=== PATIENT | female | born 1955 | race Caucasian/White ===

== ENCOUNTER 2016-07-06 11:13 | Outpatient (CLI) | payer MEDICARE ==
[~2016-07-06] VITALS: Ht 172.7 cm; Wt 81.8 kg
--- NOTE | ~2016-07-06 | HEMODYNAMI ---
PATIENT:TATYANA RAYMOND MEDICAL RECORD: [id number] : 55 LOCATION:[facility] ADMISSION DATE: 07/06/16 Generatedon:07/06/201613:35 Patient name: TATYANA RAYMOND Patient #: [id number] SSN: : 1955 Date of study: 07/06/2016 Page: Of Hemodynamic Procedure Report Patient Data Patient Demographics Procedure consent was obtained First Name: TATYANA Gender: Female Last Name: MANDI : 1955 Middle Initial: OREN Age: 60 year(s) Patient #: [id number] Race: Unknown Additional ID: [id number] Contact details [address]: [address] [place] [address] State: [place] City: [place] Zip code: [address] Past Medical History Allergies Allergen Reaction Date Comments Reported Iodine 07/06/2016 Penicillins 07/06/2016 Other allergy 07/06/2016 Levaquin, Amitryptyline Admission Admission Data Admission Date: 07/06/2016 Admission Time: 11:13 Weight (lbs.): 180 Weight (kg.): 81.65 Procedure Procedure Types Cath Procedure Diagnostic Procedure LHC LHC w/Coronaries w/Grafts Miscellaneous Procedures Moderate Sedation up to 15 minutes Procedure Description Procedure Date Procedure Date: 07/06/2016 Procedure Start Time: 13:16 Procedure End Time: 13:32 Procedure Staff Name Function Bossman Valenzuela RT Scrub Sampson Mathis MD Performing Physician Anny An RN Nurse Williams Gold RT Monitor Procedure Data Cath Procedure Fluoroscopy Diagnostic fluoroscopy Total fluoroscopy Time: 3.9 time: 3.9 min min Diagnostic fluoroscopy Total fluoroscopy dose: 789 dose: 789 mGy mGy Contrast Material Contrast Material Type Amount (ml) Isovue 300 138 Entry Location Entry Primary Successful Side Size Upsize Upsize Entry Closure Succes sful Closure Location (Fr) 1 (Fr) 2 (Fr) Remarks Device Remarks Femoral Right 5 Fr Exoseal artery Estimated blood loss: 5 ml Diagnostic catheters Device Type Used For End Catheter Placement Cordis 5Fr JL 4.0 Procedure Catheter (MP) Cordis 5Fr 3DRC Catheter Procedure (MP) Cordis 5Fr Pigtail Procedure Catheter (MP) Diagnostic Infinity 5Fr Procedure AR 2 MOD catheter Procedure Complications No complications Procedure Medications Medication Administration Route Dosage Oxygen NC 2 l/min Heparin Flush Bag added to field 2 bags (1000units/500ml NS) Lidocaine 2% added to field 20 Versed I.V. 1 mg Fentanyl I.V. 50 mcg Versed I.V. 1 mg Fentanyl I.V. 50 mcg Versed I.V. 1 mg Plavix P.O. 75 mg Versed I.V. 1 mg Hemodynamics Rest Heart Rate: 78 (bpm) Pressure Samples Time Site Value (mmHg) Purpose Heart Use Rate(bpm) 13:25 LV 141/-11,28 Snapshot 83 13:25 LV 140/-11,27 Snapshot 83 Gradients Valve Time Site Site Mean SEP/DFP Peak To Heart Use 1 2 (mmHg) (sec/min) Peak Rate (mmHg) (bpm) Aortic 13:26 LV AO 84 Snapshots Pre Cath Intra NCS Post Cath Vital Signs Time Heart Resp SPO2 NIBP (mmHg) Rhythm Pain Sedation Rate (ipm) (%) Status Level (bpm) 13:11:11 74 15 98 138/84(107) NSR 0 (11) 10(A) , No pain 13:15:23 79 15 100 143/86(118) NSR 0 (11) 10(A) , No pain 13:19:37 81 16 99 140/83(107) NSR 0 (11) 10(A) , No pain 13:23:53 80 17 99 134/78(100) NSR 0 (11) 10(A) , No pain 13:28:03 83 16 98 134/85(110) NSR 0 (11) 10(A) , No pain 13:32:13 81 16 99 135/88(113) NSR 0 (11) 10(A) , No pain Medications Time Medication Route Dose Verified Delivered Reason Notes Ef fectiveness by by 12:50:53 Plavix P.O. 75 mg Sampson Mccormick for [facility] An RN antiplatelet therapy 13:12:07 Oxygen NC 2 Sampson Perezca Per l/min [facility] An RN physician 13:12:15 Heparin Flush added 2 Sampson Sampson used for Bag to bags [place] Del procedure (1000units/500ml field MD LLANOS NS) 13:12:25 Lidocaine 2% added 20ml Sampson Sampson used for to vial Del [place] procedure field MD LLANOS 13:15:53 Versed I.V. 1 mg Sampson Anny for sedation [facility] An RN, MD 13:15:59 Fentanyl I.V. 50 Sampson Anny for sedation mcg [facility] An RN, MD 13:19:25 Versed I.V. 1 mg Sampson Anny for sedation [facility] An RN, MD 13:19:27 Fentanyl I.V. 50 Sampson Anny for sedation mcg [facility] An RN, MD 13:21:57 Versed I.V. 1 mg Sampson Anny for sedation [facility] An RN, MD 13:24:32 Versed I.V. 1 mg Sampson Anny for sedation [facility] An RN, MD Procedure Log Time Note 12:37:28 Procedure type changed to Cath procedure, Diagnostic procedure, LHC, LHC w/Coronaries w/Grafts, Miscellaneous Procedures, Moderate Sedation up to 15 minutes 12:38:08 Diagnostic Cath status Elective 12:38:11 Jose CORDOBA(R) sent for patient. Start room use. 12:38:12 Time tracking: Regular hours 12:38:16 Plan of Care:Hemodynamics will remain stable., Cardiac rhythm will remain stable., Comfort level will be maintained., Respiratory function will remain adequate., Patient/ family verbilizes understanding of procedure., Procedure tolerated without complication., Recovers from procedure without complications.. 12:49:27 Patient received from Pre/Post Procedure Room to CCL 2 Alert and oriented. Tansferred to table in Supine position. 12:49:28 Correct patient and procedure confirmed by team. 12:49:28 Warm blankets applied, and kathya hugger turned on for patient comfort. 12:49:29 Signed procedure consent form obtained from patient. 12:49:31 ECG and BP/O2 sat monitors applied to patient. 12:50:53 Plavix 75 mg P.O. was administered by Anny An RN; for antiplatelet therapy; 13:10:04 Vital chart was started 13:10:09 Rhythm: sinus rhythm 13:10:10 Full Disclosure recording started 13:10:23 H&P Date Dictated: 06/30/2016 Within 30 days and on chart., H&P Addendum completed by physician on day of procedure. (MUST COMPLETE FOR ALL OUTPATIENTS). 13:10:25 Pre-procedure instructions explained to patient. 13:10:25 Pre-op teaching completed and patient verbalized understanding. 13:10:27 Family in waiting room. 13:10:30 Patient NPO since Midnight. 13:10:39 Patient allergic to Iodine 13:10:45 Patient allergic to Penicillins 13:11:07 Patient allergic to Other allergyLevaquin, Amitryptyline 13:11:11 Is the patient allergic to Iodine/contrast media? Yes. 13:11:11 Was the patient premedicated? Yes 13:12:07 Oxygen 2 l/min NC was administered by Anny An RN; Per physician; 13:12:15 Heparin Flush Bag (1000units/500ml NS) 2 bags added to field was administered by Sampson Mathis MD; used for procedure; 13:12:25 Lidocaine 2% 20ml vial added to field was administered by Sampson Mathis MD; used for procedure; 13:12:40 Patient diabetic? No. 13:12:46 Is patient on blood thinner?Yes 13:12:48 ACC The patient was administered the following blood thiners within the last 24 hours: ACCPlavix 13:12:51 Patient not . Patient is over age 55. 13:12:53 Previous problem with sedation/anesthesia? No ? 13:12:55 Snore? Yes 13:12:56 Sleep apnea? No 13:12:57 Deviated septum? No 13:12:58 Opens mouth fully? Yes 13:12:58 Sticks out tongue? Yes 13:13:01 Airway obstruction? No ? 13:13:08 Dentures? Yes IN 13:13:12 Pre procedure: right dorsailis pedis pulse 1+ Palpable, but thready & weak; easily obliterated 13:13:15 Patient pain scale 0/10 ?. 13:13:19 Lab results completed and on chart. 13:13:22 Right groin area was prepped with chlora-prep and draped in sterile fashion 13:13:23 Alarms reviewed by R. N. 13:13:23 Sharps counted by scrub and verified by R.N. 13:13:24 --------ALL STOP TIME OUT------ 13:13:25 Final Timeout: patient, procedure, and site verified with staff and physician. All members of the team are in agreement. 13:13:27 Right groin site verified by team. 13:13:30 Physical assessment completed. ASA score P 2 - A patient with mild systemic disease as per Sampson Mathis MD. 13:13:42 Sedation plan: IV Moderate Sedation Versed, Fentanyl 13:13:58 Baseline sample Acquired. 13:14:49 Use device set Femoral Dx 13:14:51 Tegaderm 4 x 4 opened to sterile field. 13:14:52 Acist Hand Control opened to sterile field. 13:14:52 Acist Manifold opened to sterile field. 13:14:54 Acist Syringe opened to sterile field. 13:14:55 Bag Decanter opened to sterile field. 13:14:56 Medline Cath Pack opened to sterile field. 13:14:56 Terumo 5Fr [place] Sheath opened to sterile field. 13:14:56 St Dru 260cm J .035 wire opened to sterile field. 13:14:57 Diagnostic Infinity 5Fr Multipack catheter opened to sterile field. 13:15:53 Versed 1 mg I.V. was administered by Anny An RN; for sedation; 13:15:59 Fentanyl 50 mcg I.V. was administered by Anny An RN; for sedation; 13:16:35 Procedure started. 13:16:39 Local anesthetic to right femoral artery with Lidocaine 2% by Sampson Mathis MD.INITIAL ACCESS ONLY 13:17:23 Zero performed for pressure channel P1 13:18:21 A 5 Fr sheath was inserted into the Right Femoral artery 13:19:15 A Cordis 5Fr JL 4.0 Catheter (MP) was advanced over the wire and used for Procedure. 13:19:25 Versed 1 mg I.V. was administered by Anny An RN; for sedation; 13:19:27 Fentanyl 50 mcg I.V. was administered by Anny An RN; for sedation; 13:19:52 Patient Weight : 81.65 kg 13:19:56 LCA angiography performed. 13:21:29 Catheter removed. 13:21:33 A Cordis 5Fr 3DRC Catheter (MP) was advanced over the wire and used for Procedure. 13:21:57 Versed 1 mg I.V. was administered by Anny An RN; for sedation; 13:22:49 RCA angiography performed. 13:23:53 SVG to RCA angiography performed. 13:24:28 Catheter removed. 13:24:32 Versed 1 mg I.V. was administered by Anny An RN; for sedation; 13:25:21 A Cordis 5Fr Pigtail Catheter (MP) was advanced over the wire and used for Procedure. 13:25:30 LV hemodynamics recorded. 13:25:32 LV gram done using GARCIA 13:25:36 Injector settings: Ml/sec: 10, Volume: 20, 13:26:05 EF : 55 % 13:26:30 Catheter removed. 13:26:37 A Diagnostic Infinity 5Fr AR 2 MOD catheter was advanced over the wire and used for Procedure. 13:28:07 SVG to Diag angiography performed. 13:28:57 SVG to RCA angiography performed. 13:29:57 Catheter removed. 13:30:07 Cordis 5Fr Exoseal opened to sterile field. 13:30:16 Sheath removed intact; hemostasis achieved with Exoseal to the Right Femoral artery. 13:30:18 Procedure ended.(Physican Out) 13:30:29 Fluoroscopy time 03.90 minutes. 13:30:33 Fluoroscopy dose: 789 mGy 13:30:33 Flurop Dose total: 789 13:30:36 Contrast amount:Isovue 300 138ml. 13:30:37 Sharps counted by scrub and verified by R.N. 13:30:38 Insertion/operative site no bleeding no hematoma. 13:30:42 Post-op/insertion site Right Femoral artery dressed using a 4 x 4 and Tegaderm. 13:30:45 Post right femoral artery:stable, soft, clean and dry 13:30:49 Post-procedure physical assessment completed. ASA score P 2 - A patient with mild systemic disease as per Sampson Mathis MD. 13:30:57 Post procedure rhythm: unchanged. 13:30:59 Estimated blood loss: 5 ml 13:31:00 Post procedure instruction explained to patient.Patient verbalizes understanding. 13:31:00 Patient needs reinforcement of post procedure teaching. 13:31:52 Procedure and supply charges have been captured, reviewed, submitted and are correct. 13:31:54 Procedure Complication : No complications 13:31:56 Vital chart was stopped 13:31:56 See physician's report for complete and final results. 13:31:58 Report given to Pre/Post Procedure Room. 13:32:00 Patient transfered to Pre/Post Procedure Room with Stretcher. 13:32:02 Procedure ended. 13:32:02 Full Disclosure recording stopped 13:35:26 End room use (Document Last) Device Usage Item Name Manufacture Quantity Catalog Hospital Part Current Minimal Lo t# / Number Charge Number Stock Stock Serial# Code Tegaderm 4 1 [id number] [id number] 388954 5 x 4 Acist Hand Acist 1 59567 433357 329969 775485 5 Control Medical Systems VMIX Media Acist Acist 1 53400 967395 669574 869677 5 Manifold [employer] Inc Acist Acist 1 68605 559018 277443 128853 20 Syringe Medical Systems Inc Bag Microtek 1 2002S 149180 76488 149422 5 [employer] Medline Cardinal 1 [id number] 666300 43909 443775 5 Cath Pack Health Terumo 5Fr Terumo 1 [id number] 393252 790102 418355 [address] Dru 1 167453 171003 720102 207805 30 260cm J .035 wire Diagnostic Cardinal 1 DQ4000 409328 00268 022875 30 Infinity Health 5Fr Multipack catheter Cordis 5Fr Cardinal 1 519022 5 JL 4.0 Health Catheter (MP) Cordis 5Fr Cardinal 1 155012 5 3DRC Health Catheter (MP) Cordis 5Fr Cardinal 1 427837 5 Pigtail Health Catheter (MP) Diagnostic Cardinal 1 [id number] 249314 534249 673456 20 Infinity Health 5Fr AR 2 MOD catheter Cordis 5Fr Cardinal 1 EX500 306288 759954 163868 10 [employer] Signature Audit [place] Stage Time Signature Unsigned Intra-Procedure 07/06/2016 Williams Gold 1:35:50 PM RT(R) Signatures Monitor : Williams Gold RT Signature : Date : Time : [address] [place] [address]
[~2016-07-06 11:13] MED LIST: BACTRIM DS TABL1 TAB PO; BAYER ASPIRIN325 MG PO; BUSPAR 15 MG TA15 MG PO; COZAAR25 MG PO; CRESTOR40 MG PO; CYMBALTA30 MG PO; CYMBALTA60 MG PO; ELIQUIS2.5 MG PO; FENOFIBRATE134 MG PO; FLAXSEED OIL1000 MG PO; HYDRALAZINE HCL50 MG PO; HYDROCHLOROTHIA25 MG PO; HYDROCODONE-APA1 TAB PO; LOVAZA1 G PO; LYRICA100 MG PO; NITROSTAT0.4 MG SL; PERCOCET 10/3251 TA1 PO; PLAVIX75 MG PO; PROTONIX40 MG PO; RANEXA500 MG PO; RESTORIL15 MG PO; SOMA350 MG PO; TOPROL XL100 MG PO; TOPROL XL50 MG PO; XANAX2 MG PO; ZANTAC150 MG PO; ZETIA10 MG PO
[2016-07-06] MEDS ORDERED: HYDROXYZINE PA100 MG PO (11:34)
[2016-07-06] MEDS ORDERED: CYCLOBENZAPRINE10 MG PO (11:34)
[2016-07-06] MEDS ORDERED: SINGULAIR10 MG PO (11:34)
[2016-07-06 11:44] VITALS: BP 166/95; Ht 172.7 cm; Wt 81.8 kg
[2016-07-06 11:55] LABS: BASOPHILS 0.2 % (0.0-2.0); EOSINOPHILS 1.1 % (0-7); HEMATOCRIT 42.6 % (36.0-48.0); HEMOGLOBIN 14.6 g/dL (12-16); IMMATURE GRANULOCYTES 0.2 % (0-5); LYMPHOCYTES 44.8 % (15-50); MCH 32.7 pg (26.0-34.0); MCHC 34.3 g/dL (31.0-37.0); MCV 95.3 fL (80.0-100.0); MEAN PLATELET VOLUME 8.6 fL (7.4-10.4); MONOCYTES 6.9 % (2-11); NEUTROPHILS 46.8 % (40-80); PLATELET COUNT 248 10x3/uL (130-400); RBC 4.47 10x6/uL (4.00-5.40); RDW 13.2 % (11.5-14.5); WBC 6.1 10x3/uL (4.8-10.8)
[2016-07-06 12:11] LABS: CALC OSMOLALITY 276 mosm/kg (275-300); CALCIUM 9.1 mg/dL (8.5-10.1); CARBON DIOXIDE 27.8 mmol/L (21.0-32.0); CHLORIDE - SERUM 105 mmol/L (98-107); CREATININE - SERUM 0.8 mg/dL (0.6-1.3); GLUCOSE 98 mg/dL (74-106); POTASSIUM - SERUM 3.8 mmol/L (3.5-5.1); SODIUM 140 mmol/L (136-145); UREA NITROGEN 6 mg/dL (7-18); eGFR NON AFRICAN AMERICAN 77 mL/min (90-120)
--- NOTE | 2016-07-06 14:14 | NUR ---
1400-RIGHT GROIN-CDI, NO BLEEDING OR HEMATOMA, SOFT TO TOUCH
--- NOTE | 2016-07-06 16:18 | NUR ---
1430-RIGHT GROIN - CDI, NO HEMATOMA OR BLEEDING NOTED, SOFT TO TOUCH
--- NOTE | 2016-07-06 16:20 | NUR ---
1540-IV D'C WITH CATH TIP INTACT, WRITTEN AND VERBAL INSTRUCTIONS GIVEN TP PT AND FRIEND.
--- NOTE | 2016-07-11 13:10 | OP ---
PATIENT NAME: TATYANA RAYMOND MEDICAL RECORD: [id number] :55 LOCATION:[facility] ADMISSION DATE: SURGEON: MICHAEL WADDELL MD DATE OF OPERATION: 07/06/2016 PROCEDURES: Left heart catheterization, selective coronary angiography, right femoral artery approach. CATHETERS: A 5-[place] sheath, 5/4 left and right Arlette, 5/4 pig. The procedure was well tolerated. The patient returned to the shrestha, sheath removed. ExoSeal device was placed. FINDINGS: Left ventriculography in 30-degree GARCIA view: Normal wall motion, normal systolic function. CORONARY ANATOMY: LEFT MAIN: Left main is free of disease. LAD: LAD has about 50% stenosis in its proximal portion. Previously placed stent is widely patent. She has a diagonal branch, which has a tight ostial stenosis that filled well via a saphenous graft to diagonal system. CIRCUMFLEX: Circumflex is free of disease. RIGHT CORONARY ARTERY: Totally occluded. GRAFTS: 1. Saphenous graft to diagonal is widely patent throughout its course without evidence of post-anastomotic stenosis. 2. Saphenous vein graft to diagonal IS widely patent throughout its course. 3. GATES to LAD is atretic, free of disease. IMPRESSION: Angina from small-vessel disease. No role for intervention at this point. TRANSINT:[id number] Voice Confirmation ID: [id number] DOCUMENT ID: [id number] MICHAEL WADDELL MD at 1310 CC: [id number] DICTATION DATE: 07/06/16 1337 APPLICATIONS SUPPORT SPECIALIST: 07/06/16 1404 DEP CLI 07/06/16 [place] [id number]
== END 2016-07-06 15:50 | disposition home or self-care (01) ==
LOC: D.CATH 11:13
PROVIDERS: Internal Medicine Interventional Cardiology
DX: I25.119 Atherosclerotic heart disease of native coronary artery with unspecified angina pectoris (principal)

== ENCOUNTER → 2016-09-19 15:11 | Outpatient (CLI) | payer MEDICARE ==
[2016-07-06 11:44] VITALS: BMI 27.4
[~2016-09-19 15:11] MED LIST changes: +CYCLOBENZAPRINE10 MG PO; +HYDROXYZINE PA100 MG PO; +SINGULAIR10 MG PO
== END | disposition home or self-care (01) ==
LOC: D.MRI 15:11
DX: M48.06 Spinal stenosis, lumbar region (principal)

== ENCOUNTER → 2016-10-06 11:12 | Outpatient (CLI) | payer MEDICARE ==
[2016-07-06 11:44] VITALS: BMI 27.4
== END | disposition home or self-care (01) ==
LOC: D.CT 11:12
DX: R91.1 Solitary pulmonary nodule (principal)

== ENCOUNTER 2016-12-22 05:21 | Day surgery (SDC) | payer MEDICARE ==
[~2016-12-22] VITALS: Ht 172.7 cm; Wt 81.6 kg
[2016-12-22 06:44] VITALS: Ht 172.7 cm; Wt 81.6 kg
[2016-12-22] MEDS ORDERED: HYDROCODONE-APA1 TAB PO (08:10)
== END 2016-12-22 09:43 | disposition home or self-care (01) ==
LOC: D.OPS 05:21 → D.PAN 13:10 → D.OPS 16:45
DX: M65.312 Trigger thumb, left thumb (principal); J45.909 Unspecified asthma, uncomplicated; I25.10 Atherosclerotic heart disease of native coronary artery without angina pectoris; I10 Essential (primary) hypertension; K21.9 Gastro-esophageal reflux disease without esophagitis; Z01.812 Encounter for preprocedural laboratory examination

== ENCOUNTER 2017-03-02 10:02 | Emergency (ER) | payer MEDICARE ==
[2016-12-22 06:44] VITALS: BMI 27.4
[~2017-03-02 10:02] MED LIST changes: -HYDROXYZINE PA100 MG PO
[2017-03-02 11:45] LABS: BASOPHILS 0.2 % (0-2); EOSINOPHILS 0.2 % (0-7); HEMATOCRIT 43.6 % (36.0-48.0); IMMATURE GRANULOCYTES 0.2 % (0-5); MCH 32.5 pg (26.0-34.0); MCHC 34.4 g/dL (31.0-37.0); MCV 94.6 fL (80.0-100.0); MEAN PLATELET VOLUME 9.2 fL (7.4-10.4); MONOCYTES 8.1 % (2-11); NEUTROPHILS 64.3 % (40-80); RBC 4.61 10x6/uL (4.00-5.40); RDW 13.9 % (11.5-14.5); WBC 5.4 10x3/uL (4.8-10.8)
[2017-03-02 11:58] LABS: PLATELET COUNT 240 10x3/uL (130-400)
[2017-03-02 12:05] LABS: ALBUMIN 3.8 g/dL (3.4-5.0); ALKALINE PHOSPHATASE 52 U/L (46-116); ALT (SGPT) 34 U/L (10-68); BILIRUBIN - TOTAL 0.28 mg/dL (0.2-1.3); CALC OSMOLALITY 272 mosm/kg (275-300); CALCIUM 9.1 mg/dL (8.5-10.1); CARBON DIOXIDE 24.7 mmol/L (21.0-32.0); CHLORIDE - SERUM 100 mmol/L (98-107); CREATININE - SERUM 0.8 mg/dL (0.6-1.3); GLUCOSE 133 mg/dL (74-106); POTASSIUM - SERUM 3.4 mmol/L (3.5-5.1); PROTEIN - SERUM 8.1 g/dL (6.4-8.2); SODIUM 135 mmol/L (136-145); UREA NITROGEN 15 mg/dL (7-18); eGFR NON AFRICAN AMERICAN 77 mL/min (90-120)
[2017-03-02 12:29] LABS: APPEARANCE HAZY (CLEAR); BILIRUBIN NEGATIVE (NEGATIVE); COLOR DK YELLOW (YELLOW); GLUCOSE NEGATIVE (NEGATIVE); KETONE SMALL mg/dL (NEGATIVE); NITRITE NEGATIVE (NEGATIVE); PROTEIN TRACE mg/dL (NEGATIVE); SPECIFIC GRAVITY 1.025 (1.005-1.020)
[2017-03-02 12:30] LABS: BACTERIA MODERATE /hpf (NONE SEEN); EPITHELIAL CELLS 0-5 /hpf (0-5); MUCUS >1+ /lpf (NONE SEEN); WHITE CELLS - URINE 0-5 /hpf (0-5)
== END 2017-03-02 13:21 | disposition home or self-care (01) ==
LOC: D.ER 10:02
PROVIDERS: Nurse Practitioner Family
DX: J45.901 Unspecified asthma with (acute) exacerbation (principal); N39.0 Urinary tract infection, site not specified; I10 Essential (primary) hypertension

== ENCOUNTER 2017-03-10 17:21 | Inpatient (IN) | payer MEDICARE ==
[~2017-03-10] VITALS: Ht 172.7 cm; Wt 84.8 kg
--- NOTE | ~2017-03-10 | HEMODYNAMI ---
PATIENT:TATYANA RAYMOND MEDICAL RECORD: [id number] : 55 [id number] ADMISSION DATE: 03/12/17 Generatedon:03/15/201712:38 Patient name: TATYANA RAYMOND Patient #: [id number] SSN: : 1955 Date of study: 03/15/2017 Page: Of Hemodynamic Procedure Report Patient Data Patient Demographics Procedure consent was obtained First Name: TATYANA Gender: Female Last Name: MANDI : 1955 [facility] Initial: OREN Age: 61 year(s) Patient #: [id number] Race: Unknown Additional ID: [id number] Contact details [address]: [address] [place] [address] State: [place] City: [place] Zip code: [address] Past Medical History Allergies Allergen Reaction Date Comments Reported Iodine 07/06/2016 Penicillins 07/06/2016 Other allergy 07/06/2016 Levaquin, Amitryptyline Other allergy 03/15/2017 PCN, Niacin, Levaquin, Elavil, Contrast. Admission Admission Data Admission Date: 03/12/2017 Admission Time: 15:22 Room #: D.2117 Lab Results Lab Result Date: 03/15/2017 Lab Result Time: 4:35 Biochemistry Name Units Result Min Max BUN mg/dl 16 --(---*)-- 7 18 Creatinine mg/dl 0.9 --(-*--)-- 0.6 1.3 CBC Name Units Result Min Max Hematocrit % 38.9 *-(----)-- 42 54 Hemoglobin g/dl 13.1 -*(----)-- 13.5 17.5 Procedure Procedure Types Cath Procedure Diagnostic Procedure LHC LHC w/Coronaries w/Grafts PCI Procedure AMI/SVG/ABSORPTION AND ADSORPTION ENGINEER PTCA or Stent SVG-BMS/SAE Initial Miscellaneous Procedures Moderate Sedation up to 30 minutes Procedure Description Procedure Date Procedure Date: 03/15/2017 Procedure Start Time: 12:11 Procedure End Time: 12:35 Procedure Staff Name Function Casey Tapia MD Performing Physician Williams Gold RT Monitor Sandi Neff RT Scrub Art Burt RN Nurse Procedure Data Cath Procedure Fluoroscopy Diagnostic fluoroscopy Total fluoroscopy Time: 4.9 time: 4.9 min min Diagnostic fluoroscopy Total fluoroscopy dose: 699 dose: 699 mGy mGy Contrast Material Contrast Material Type Amount (ml) Isovue 300 133 Entry Location Entry Primary Successful Side Size Upsize Upsize Entry Closure Succes sful Closure Location (Fr) 1 (Fr) 2 (Fr) Remarks Device Remarks Femoral Right 5 Fr 6 Fr Exoseal artery Short Estimated blood loss: 10 ml Diagnostic catheters Device Type Used For End Catheter Placement MULTIPACK Pigtail 5 Fr Procedure catheter MULTIPACK JL 4.0 5Fr Procedure catheter MULTIPACK 3DRC 5Fr Procedure catheter DIAGNOSTIC AR 2 MOD 5 Fr Procedure catheter ([id number]) DIAGNOSTIC AR 2 MOD 5 Fr Procedure catheter ([id number]) Procedure Complications No complications Procedure Medications Medication Administration Route Dosage 0.9% NaCl I.V. ml/hr Oxygen NC 2 l/min Heparin Flush Bag added to field 2 bags (1000units/500ml NS) Lidocaine 2% added to field 20 Versed I.V. 2 mg Fentanyl I.V. 100 mcg Versed I.V. 2 mg Fentanyl I.V. 100 mcg Heparin Bolus I.V. 4000 units Hemodynamics Rest HGB: 13.1 (g/dl) Heart Rate: 75 (bpm) Pressure Samples Time Site Value (mmHg) Purpose Heart Use Rate(bpm) 12:12 LV 161/16,15 Snapshot 71 Snapshots Pre Cath Intra NCS Post Cath Vital Signs Time Heart Resp SPO2 etCO2 NIBP (mmHg) Rhythm Pain Sedation Rate (ipm) (%) (mmHg) Status Level (bpm) 11:52:58 74 10 93 24.6 182/108(139) NSR 0 (11) 10(A) , No pain 11:57:53 73 16 95 15.6 179/132(164) NSR 0 (11) 10(A) , No pain 12:02:50 74 13 95 165/100(141) NSR 0 (11) 10(A) , No pain 12:07:40 74 17 94 168/95(133) NSR 0 (11) 10(A) , No pain 12:12:27 78 19 92 35 166/96(137) NSR 0 (11) 10(A) , No pain 12:17:18 76 13 92 37.2 164/98(140) NSR 0 (11) 10(A) , No pain 12:22:07 79 19 93 47 174/106(139) NSR 0 (11) 9(A) , No pain 12:26:58 78 16 93 31.3 169/105(141) NSR 0 (11) 10(A) , No pain 12:31:49 76 16 93 31.3 173/103(137) NSR 0 (11) 10(A) , No pain Medications Time Medication Route Dose Verified Delivered Reason Notes Effectiveness by by 12:04:23 0.9% NaCl I.V. ml/hr Art Art Per physician Carmel Burt RN RN 12:04:35 Oxygen NC 2 Art Art Per physician l/min Carmel Burt RN, RN 12:04:51 Heparin Flush added 2 Art Art used for Bag to bags Carmel Burt procedure (1000units/500ml field WADE RN NS) 12:08:23 Lidocaine 2% added 20ml Art Art for local to vial Carmel Burt anesthetic field MAURO WADE 12:08:34 Versed I.V. 2 mg Atr Art for sedation Carmel Burt RN, RN 12:09:36 Fentanyl I.V. 100 Art Art for sedation naomie Burt RN, RN 12:12:30 Versed I.V. 2 mg Art Art for sedation Carmel Burt RN, RN 12:12:37 Fentanyl I.V. 100 Art Art for sedation [facility] Carmel Burt RN, RN 12:23:21 Heparin Bolus I.V. 4000 Art Art for units Carmel Burt anticoagulation RN hand knitter Log Time Note 11:21:45 Time tracking: Regular hours 11:21:49 Plan of Care:Hemodynamics will remain stable., Cardiac rhythm will remain stable., Comfort level will be maintained., Respiratory function will remain adequate., Patient/ family verbilizes understanding of procedure., Procedure tolerated without complication., Recovers from procedure without complications.. 11:28:07 Sandi Neff RT(R) sent for patient. Start room use. 11:51:48 Patient received from Med/Surg to CCL 1 Alert and oriented. Tansferred to table in Supine position. 11:51:49 Warm blankets applied, and kathya hugger turned on for patient comfort. 11:51:49 Correct patient and procedure confirmed by team. 11:51:51 Signed procedure consent form obtained from patient. 11:51:52 ECG and BP/O2 sat monitors applied to patient. 11:51:53 Vital chart was started 11:51:54 Full Disclosure recording started 11:51:58 Rhythm: sinus rhythm 11:59:03 Baseline sample Acquired. 12:01:44 Pre-procedure instructions explained to patient. 12:01:45 Pre-op teaching completed and patient verbalized understanding. 12:01:46 Family in patients room. 12:01:54 Patient NPO since Midnight. 12:02:17 Patient allergic to Other allergyPCN, Niacin, Levaquin, Elavil, Contrast. 12:02:19 Is the patient allergic to Iodine/contrast media? Yes. 12:02:21 Was the patient premedicated? Yes 12:02:22 Is patient on blood thinner?Yes 12:02:25 ACC The patient was administered the following blood thiners within the last 24 hours: ACCPlavix 12:02:26 Patient diabetic? No. 12:02:28 Previous problem with sedation/anesthesia? No ? 12:02:29 Snore? Yes 12:02:30 Sleep apnea? No 12:02:31 Deviated septum? No 12:02:31 Opens mouth fully? Yes 12:02:32 Sticks out tongue? Yes 12:02:51 Airway obstruction? Yes asthma, bronchitis 12:02:55 Dentures? Yes In tight 12:03:03 Pre procedure: right dorsailis pedis pulse 2+ Normal; easily identifiable; not easily obliterated 12:03:05 Patient pain scale 0/10 ?. 12:03:24 IV patent on arrival in left forearm with 0.9% NaCl at [facility]. 12:04:14 Lab Result : Creatinine 0.9 mg/dl 12:04:14 Lab Result : BUN 16 mg/dl 12:04:14 Lab Result : Hemoglobin 13.1 g/dl 12:04:14 Lab Result : Hematocrit 38.9 % 12:04:16 Lab results completed and on chart. 12:04:18 Right groin area was prepped with chlora-prep and draped in sterile fashion 12:04:19 Alarms reviewed by R. N. 12:04:20 Sharps counted by scrub and verified by R.N. 12:04:22 Use device set Femoral Dx 12:04:23 0.9% NaCl ml/hr I.V. was administered by Art Burt RN; Per physician; 12:04:27 ACIST Syringe (41394) opened to sterile field. 12:04:28 ACIST Hand Control (82298) opened to sterile field. 12:04:29 ACIST Manifold (39118) opened to sterile field. 12:04:34 Tegaderm 4 x 4 (1626W) opened to sterile field. 12:04:35 Oxygen 2 l/min NC was administered by Art Burt RN; Per physician; 12:04:41 Medline Cath Pack ([id number]) opened to sterile field. 12:04:42 Bag Decanter (2002S) opened to sterile field. 12:04:47 SHEATH 5FR [place] (CLE282) opened to sterile field. 12:04:47 DIAGNOSTIC WIRE .035 260cm J wire (755873) opened to sterile field. 12:04:49 DIAGNOSTIC Multipack 5Fr catheter set (CA6684) opened to sterile field. 12:04:50 PERCUTANEOUS ENTRY 19GA needle opened to sterile field. 12:04:51 Heparin Flush Bag (1000units/500ml NS) 2 bags added to field was administered by Art Burt RN; used for procedure; 12:05:26 H&P Date Dictated: 03/14/2017 Within 30 days and on chart.. 12:06:56 Physician arrived 12:06:56 --------ALL STOP TIME OUT------ 12:06:57 Final Timeout: patient, procedure, and site verified with staff and physician. All members of the team are in agreement. 12:06:58 Right groin site verified by team. 12:07:01 Physical assessment completed. ASA score P 2 - A patient with mild systemic disease as per Casey Tapia MD. 12:07:04 Sedation plan: IV Moderate Sedation Medication:Versed, Fentanyl 12:07:31 Zero performed for pressure channel P1 12:08:23 Lidocaine 2% 20ml vial added to field was administered by Art Burt RN; for local anesthetic; 12:08:34 Versed 2 mg I.V. was administered by Art Burt RN; for sedation; 12:09:36 Fentanyl 100 mcg I.V. was administered by Art Burt RN; for sedation; 12:11:01 Procedure started. 12:11:05 Local anesthetic to right femoral artery with Lidocaine 2% by Casey Tapia MD.INITIAL ACCESS ONLY 12:11:33 A 5 Fr sheath was inserted into the Right Femoral artery 12:12:16 A MULTIPACK Pigtail 5 Fr catheter was advanced over the wire and used for Procedure. 12:12:30 Versed 2 mg I.V. was administered by Art Burt RN; for sedation; 12:12:37 Fentanyl 100 mcg I.V. was administered by Art Burt RN; for sedation; 12:12:39 LV gram done using GARCIA 12:12:41 Injector settings: Ml/sec: 10, Volume: 20, 12:12:46 EF : 55 % 12:13:41 Catheter exchanged over wire. 12:13:50 A MULTIPACK JL 4.0 5Fr catheter was advanced over the wire and used for Procedure. 12:14:02 Catheter removed. unable to cannulate vessel. 12:15:08 A MULTIPACK 3DRC 5Fr catheter was advanced over the wire and used for Procedure. 12:15:12 RCA angiography performed. 12:15:16 Catheter exchanged over wire. 12:15:57 SHEATH 6FR [place] (LAP450) opened to sterile field. 12:16:17 GUIDE 6FR XBLAD 3.5 catheter ([id number]) opened to sterile field. 12:16:24 A DIAGNOSTIC AR 2 MOD 5 Fr catheter ([id number]) was advanced over the wire and used for Procedure. 12:16:59 SVG to RCA angiography performed. 12:18:16 Catheter removed. 12:18:20 Sheath upsized to a 6 Fr Short. 12:18:40 6 Fr xblad 3.5 guide catheter was inserted over the wire 12:18:55 INFLATOR Merit BasixCompak (GS4819) opened to sterile field. 12:20:15 Guide catheter removed. 12:20:23 A DIAGNOSTIC AR 2 MOD 5 Fr catheter ([id number]) was advanced over the wire and used for Procedure. 12:21:16 SVG to LAD/DIAG angiography performed. 12::38 Catheter removed. 12::46 GUIDE 6FR AR 2.0 catheter (IM4MO27) opened to sterile field. 12:22:11 [place] IVUS Catheter (78835K) opened to sterile field. 12:23:21 Heparin Bolus 4000 units I.V. was administered by Art Burt RN; for anticoagulation; 12::32 Catheter removed. 12::38 6 Fr AR 2 guide catheter was inserted over the wire 12::44 WHISPER 300cm guide wire ([id number]) opened to sterile field. 12:26:00 WHISPER wire advanced. 12::01 Wire advanced across lesion. 12:26:05 IVUS catheter advanced over wire. 12::20 IVUS pass to SVG DIAG lesion performed. 12::22 IVUS catheter removed over wire. 12::45 Inflation Number: 1 A LIAM RX 3.5 x 15 stent ([id number]) was prepped and advanced across the Aorta Left -> 1st Diag. The stent was deployed at 17 ROCKY for 0:10 (min:sec). 12::58 Stent catheter was removed intact over wire. 12::58 Wire removed. 12::59 Guide catheter removed. 12:28:12 EXOSEAL 6Fr (EX600) opened to sterile field. 12:: Sheath removed intact; hemostasis achieved with Exoseal to the Right Femoral artery. 12:: Procedure ended.(Physican Out) ::38 Fluoroscopy time 04.90 minutes. 12::42 Flurop Dose total: 699 12::42 Fluoroscopy dose: 699 mGy 12::45 Contrast amount:Isovue 300 133ml. 12::46 Sharps counted by scrub and verified by R.N. 12:29:49 Insertion/operative site no bleeding no hematoma. 12:29:52 Post-op/insertion site Right Femoral artery dressed using a 4 x 4 and Tegaderm. 12:29:56 Post right femoral artery:stable, soft, clean and dry 12:29:58 Post Procedure Pulses reassessed and unchanged 12:30:00 Post-procedure physical assessment completed. ASA score P 2 - A patient with mild systemic disease as per Casey Tapia MD. 12:30:02 Post procedure rhythm: unchanged. 12:33:25 Estimated blood loss: 10 ml 12:33:27 Post procedure instruction explained to patient.Patient verbalizes understanding. 12:33:27 Patient needs reinforcement of post procedure teaching. 12:33:58 Procedure type changed to Cath procedure, Diagnostic procedure, LHC, LHC w/Coronaries w/Grafts, PCI procedure, AMI/SVG/ABSORPTION AND ADSORPTION ENGINEER PTCA or Stent, SVG-BMS/SAE Initial, Miscellaneous Procedures, Moderate Sedation up to 30 minutes 12:35:19 Procedure and supply charges have been captured, reviewed, submitted and are correct. 12:35:21 Procedure Complication : No complications 12:35:23 Vital chart was stopped 12:35:23 See physician's report for complete and final results. 12:35:25 Report given to Pre/Post Procedure Room. 12:35:27 Patient transfered to Pre/Post Procedure Room with Stretcher. 12:35:30 Procedure ended. 12:35:30 Full Disclosure recording stopped 12:37:47 End room use (Document Last) Intervention Summary Intervention Notes Time ActionType Lesion and Equipment Used Action# Pressure Duration Attributes 12:27:45 Place stent Aorta Left LIAM RX 3.5 x 1 17 00:10 -> 1st Diag 15 stent ([id number]) Device Usage Item Name Manufacture Quantity Catalog Hospital Part [facility] Lot# / Number Charge Number Stock Stock Serial# Code ACIST Syringe Acist 1 54743 754700 692040 718273 20 (28738) Medical [employer] Inc ACIST Hand Acist 1 74299 890844 135202 731868 5 Control Medical (69376) Systems Inc ACIST Manifold Acist 1 77910 511831 572318 337457 5 (43558) Medical Systems Inc Tegaderm 4 x 4 3M 1 1626W 042067 538378 277757 5 (1626W) Medline Cath Cardinal 1 [id number] 293120 07398 792263 5 [facility] ([id number]) Bag Decanter Microtek 1 2001S 263190 85908 169364 5 () Medical Inc. SHEATH 5FR Terumo 1 BOQ921 168061 166709 621948 40 [place] (FIE409) DIAGNOSTIC St Dru 1 689877 859405 888195 967565 30 WIRE .035 260cm J wire (273709) DIAGNOSTIC Cardinal 1 KT6451 391642 72613 175525 30 Multipack 5Fr Health catheter set (GG7042) PERCUTANEOUS [facility] 1 J09584 126094 406277 5 ENTRY 19GA needle MULTIPACK Cardinal 1 166502 5 Pigtail 5 Fr Health catheter MULTIPACK JL Cardinal 1 581250 5 4.0 5Fr Health catheter MULTIPACK 3DRC Cardinal 1 258187 5 5Fr catheter Health SHEATH 6FR Terumo 1 [id number] 210131 618736 530563 40 [place] (SUB474) GUIDE 6FR Cardinal 1 [id number] 233540 569187 401871 10 XBLAD 3.5 Health catheter ([id number]) DIAGNOSTIC AR Cardinal 1 [id number] 770208 975835 546052 20 2 MOD 5 Fr Health catheter (227209C) INFLATOR Merit Merit 1 HF2306 647487 014223 302092 15 BasixCompak Medical (MU2232) GUIDE 6FR AR Medtronic 1 [id number] 624677 27465 794445 1 2.0 catheter ([id number]) [place] 1 86141F 224094 218167 857500 8 [place] IVUS Catheter (67315V) WHISPER 300cm Matute 1 [id number] 880352 591433 298614 5 guide wire Vascular ([id number]) LIAM RX 3.5 x Medtronic 1 [id number] 772809 5529373 541505 5 [id number] 15 stent ([id number]) EXOSEAL 6Fr Cardinal 1 EX600 107205 390906 022416 10 (EX600) Health Signature Audit [place] Stage Time Signature Unsigned Intra-Procedure 03/15/2017 Williams Gold 12:38:13 PM RT(R) Signatures Monitor : Williams Gold RT Signature : Date : Time : [facility] [address] [place] [address]
--- NOTE | ~2017-03-10 | HEMODYNAMI ---
PATIENT:TATYANA RAYMOND MEDICAL RECORD: [id number] : 55 LOCATION:[facility] D.2117 ADMISSION DATE: 03/12/17 Generatedon:03/16/201716:02 Patient name: TATYANA RAYMOND Patient #: [id number] SSN: : 1955 Date of study: 03/16/2017 Page: Of Hemodynamic Procedure Report Patient Data Patient Demographics Procedure consent was obtained First Name: TATYANA Gender: Female Last Name: MANDI : 1955 [facility] Initial: OREN Age: 61 year(s) Patient #: [id number] Race: Unknown Additional ID: [id number] Contact details [address]: [address] [place] [address] State: [place] City: [place] Zip code: [address] Past Medical History Allergies Allergen Reaction Date Comments Reported Iodine 07/06/2016 Penicillins 07/06/2016 Other allergy 07/06/2016 Levaquin, Amitryptyline Other allergy 03/15/2017 PCN, Niacin, Levaquin, Elavil, Contrast. Other allergy 03/16/2017 Penicillin, Niacin, Levaquin, Elavil, Contrast Admission Admission Data Admission Date: 03/12/2017 Admission Time: 15:22 Room #: D.2117 Height (in.): 67.72 BSA: 1.99 (m2) Height (cm.): 172 BMI: 29.07 (kg/m2) Weight (lbs.): 189.6 Weight (kg.): 86 Lab Results Lab Result Date: 03/15/2017 Lab Result Time: 4:35 Biochemistry Name Units Result Min Max BUN mg/dl 16 --(---*)-- 7 18 Creatinine mg/dl 0.9 --(-*--)-- 0.6 1.3 CBC Name Units Result Min Max Hematocrit % 38.9 *-(----)-- 42 54 Hemoglobin g/dl 13.1 -*(----)-- 13.5 17.5 Procedure Procedure Types Cath Procedure PCI Procedure Coronary Stent Coronary Stent Initial Miscellaneous Procedures Moderate Sedation up to 30 minutes Procedure Description Procedure Date Procedure Date: 03/16/2017 Procedure Start Time: 15:33 Procedure End Time: 16:01 Procedure Staff Name Function Alyssa Dickson RT Monitor Ruben Velazquez RN Nurse Casey Tapia MD Performing Physician Olamide Arndt RT Scrub Katalina Jacques RN Nurse Jose Ospina RT Monitor Procedure Data Cath Procedure Fluoroscopy Diagnostic fluoroscopy Total fluoroscopy Time: 2.9 time: 2.9 min min Diagnostic fluoroscopy Total fluoroscopy dose: 533 dose: 533 mGy mGy Contrast Material Contrast Material Type Amount (ml) Isovue 300 52 Entry Location Entry Primary Successful Side Size Upsize Upsize Entry Closure Succes sful Closure Location (Fr) 1 (Fr) 2 (Fr) Remarks Device Remarks Femoral Left 6 Fr Exoseal artery Short Estimated blood loss: 10 ml Diagnostic catheters Device Type Used For End Catheter Placement DIAGNOSTIC IMT 5Fr Procedure Catheter ([id number]) Procedure Complications No complications Procedure Medications Medication Administration Route Dosage 0.9% NaCl I.V. 100 ml/hr Oxygen NC 2 l/min Lidocaine 2% added to field 20 Heparin Flush Bag added to field 2 bags (1000units/500ml NS) Versed I.V. 2 mg Fentanyl I.V. 100 mcg Versed I.V. 1 mg Fentanyl I.V. 50 mcg Fentanyl I.V. 50 mcg Versed I.V. 1 mg Versed I.V. 2 mg Fentanyl I.V. 100 mcg Heparin Bolus I.V. 4000 units Hemodynamics Rest BSA: 1.99 (m2) HGB: 13.1 (g/dl) O2 Consumption: Estimated: 199.31 (ml/min) O2 Co nsumption indexed: Estimated:100.16 (ml/min/m) Heart Rate: 85 (bpm) Snapshots Pre Cath Intra NCS Post Cath Vital Signs Time Heart Resp SPO2 etCO2 NIBP (mmHg) Rhythm Pain Sedation Rate (ipm) (%) (mmHg) Status Level (bpm) 15:24:30 86 25 95 28.4 143/98(134) NSR 0 (11) 10(A) , No pain 15:28:44 85 16 95 30.7 147/96(126) NSR 0 (11) 10(A) , No pain 15:32:56 85 114 95 23.9 142/95(129) NSR 0 (11) 10(A) , No pain 15:37:08 82 19 95 34.4 143/88(117) NSR 0 (11) 10(A) , No pain 15:41:22 82 18 94 17.2 138/98(132) NSR 0 (11) 9(A) , No pain 15:45:32 86 17 96 19.4 149/100(138) NSR 0 (11) 9(A) , No pain 15:49:48 85 14 96 11.2 139/91(113) NSR 0 (11) 10(A) , No pain 15:54:47 87 10 95 12.7 Measuring NSR 0 (11) 10(A) , No pain 15:54:49 88 12 95 12.7 154/91(108) NSR 0 (11) 10(A) , No pain 15:59:03 86 12 96 42.6 136/99(124) NSR 0 (11) 10(A) , No pain Medications Time Medication Route Dose Verified Delivered Reason Not es Effectiveness by by 15:24:29 0.9% NaCl I.V. 100ml/hr Casey Katalina used for Willie Jacques RN procedure 15:24:42 Oxygen NC 2 l/min Casey Darden Per physician Willie Jacques RN 15:24:52 Lidocaine 2% added 20ml Casey Peña used for to vial Willie Tapia MD procedure field 15:24:59 Heparin Flush added 2 bags Casey Peña used for Bag to Willie Tapia MD procedure (1000units/500ml field NS) 15:31:10 Versed I.V. 2 mg Casey Katalina for sedation Willie Jacques RN 15:31:19 Fentanyl I.V. 100 mcg Casey Katalina for sedation Willie Jacques RN 15:34:32 Versed I.V. 1 mg Casey Katalina for sedation Willie Jacques RN 15:34:38 Fentanyl I.V. 50 mcg Casey Katalina for sedation Willie Jacques RN 15:36:34 Fentanyl I.V. 50 mcg Casey Katalina for sedation Willie Jacques RN 15:36:44 Versed I.V. 1 mg Casey Darden for sedation Willie Jacques RN 15:38:36 Versed I.V. 2 mg Casey Darden for sedation Willie Jacques RN 15:38:43 Heparin Bolus I.V. 4000 Casey Darden for mackenzie ified units Willie Jacques RN anticoagulation by 15:38:43 Fentanyl I.V. 100 mcg Casey Darden for sedation Willie Jacques RN Procedure Log Time Note 14:50:46 Katalina Jacques RN sent for patient. Start room use. 15:05:45 Patient Height : 67.72 inches 15:05:50 Patient Weight : 189.6 lbs 15:06:40 Diagnostic Cath status Elective 15:06:48 Time tracking: Regular hours 15:06:53 Plan of Care:Hemodynamics will remain stable., Cardiac rhythm will remain stable., Comfort level will be maintained., Respiratory function will remain adequate., Patient/ family verbilizes understanding of procedure., Procedure tolerated without complication., Recovers from procedure without complications.. 15:07:02 Patient received from [place] to [facility] 2 Alert and oriented. Tansferred to table in Supine position. 15:23:23 Vital chart was started 15:24:29 0.9% NaCl 100ml/hr I.V. was administered by Katalina Jacques RN; used for procedure; 15:24:42 Oxygen 2 l/min NC was administered by Katalina Jacques RN; Per physician; 15:24:52 Lidocaine 2% 20ml vial added to field was administered by Casey Tapia MD; used for procedure; 15:24:59 Heparin Flush Bag (1000units/500ml NS) 2 bags added to field was administered by Casey Tapia MD; used for procedure; 15:25:36 Warm blankets applied, and kathya hugger turned on for patient comfort. 15:25:36 Correct patient and procedure confirmed by team. 15:25:38 Signed procedure consent form obtained from patient. 15:25:39 Baseline sample Acquired. 15:25:39 ECG and BP/O2 sat monitors applied to patient. 15:25:43 Rhythm: sinus rhythm 15:25:44 Full Disclosure recording started 15:25:48 H&P Date Dictated: 03/16/2017 Within 30 days and on chart., H&P Addendum completed by physician on day of procedure. (MUST COMPLETE FOR ALL OUTPATIENTS). 15:25:49 Pre-procedure instructions explained to patient. 15:25:50 Pre-op teaching completed and patient verbalized understanding. 15:25:52 Family in patients room. 15:25:54 Patient NPO since Midnight. 15:26:27 Patient allergic to Other allergyPenicillin, Niacin, Levaquin, Elavil, Contrast 15:26:41 Is the patient allergic to Iodine/contrast media? Yes. 15:26:42 Was the patient premedicated? Yes 15:26:45 Is patient on blood thinner?Yes 15::47 ACC The patient was administered the following blood thiners within the last 24 hours: ACCPlavix 15:27:48 Patient diabetic? No. 15:27:52 Previous problem with sedation/anesthesia? No ? 15:27:54 Snore? Yes 15:27:55 Sleep apnea? No 15:27:56 Deviated septum? No 15:27:58 Opens mouth fully? Yes 15:27:59 Sticks out tongue? Yes 15:28:03 Airway obstruction? Yes asthma 15:28:11 Dentures? Yes in tight 15:28:15 Pre procedure: right dorsailis pedis pulse 1+ Palpable, but thready & weak; easily obliterated 15:28:18 Pre procedure: left dorsailis pedis pulse 1+ Palpable, but thready & weak; easily obliterated 15:28:20 Patient pain scale 0/10 ?. 15:28:34 IV patent on arrival in left wrist with 0.9% NaCl at KVO. 15:28:38 Lab results completed and on chart. 15:28:46 Left groin area was prepped with chlora-prep and draped in sterile fashion 15:28:47 Alarms reviewed by R. N. 15:28:47 Sharps counted by scrub and verified by R.N. 15:28:48 Physician arrived 15:28:48 --------ALL STOP TIME OUT------ 15:28:49 Final Timeout: patient, procedure, and site verified with staff and physician. All members of the team are in agreement. 15:28:51 Left groin site verified by team. 15:29:01 Physical assessment completed. ASA score P 2 - A patient with mild systemic disease as per Casey Tapia MD. 15:29:04 Sedation plan: IV Moderate Sedation Medication:Versed, Fentanyl 15:29:26 Use device set TAUTH PCI 15:29:28 INFLATOR Merit BasixCompak ([id number]) opened to sterile field. 15:29:29 SHEATH 6FR Angora (MUD214) opened to sterile field. 15:29:35 EXOSEAL 6Fr (EX600) opened to sterile field. 15:29:39 Use device set Acist 15:29:41 ACIST Manifold (92794) opened to sterile field. 15:29:41 ACIST Hand Control (79061) opened to sterile field. 15:29:42 ACIST Syringe (97979) opened to sterile field. 15:30:38 DIAGNOSTIC WIRE .035 260cm J wire (021640) opened to sterile field. 15:31:10 Versed 2 mg I.V. was administered by Katalina Jacques RN; for sedation; 15:31:19 Fentanyl 100 mcg I.V. was administered by Katalina Jacques RN; for sedation; 15:32:26 GUIDE 6FR XBLAD 3.5 catheter ([id number]) opened to sterile field. 15:32:31 Procedure started. 15:33:50 Local anesthetic to left femerol artery with Lidocaine 2% by Alyssa CORDOBA(R).INITIAL ACCESS ONLY 15:34:32 Versed 1 mg I.V. was administered by Katalina Jacques RN; for sedation; 15:34:38 Fentanyl 50 mcg I.V. was administered by Katalina Jacques RN; for sedation; 15:36:34 Fentanyl 50 mcg I.V. was administered by Katalina Jacques RN; for sedation; 15:36:44 Versed 1 mg I.V. was administered by Katalina Jaqcues RN; for sedation; 15:38:36 Versed 2 mg I.V. was administered by Katalina Jacques RN; for sedation; 15:38:43 Heparin Bolus 4000 units I.V. was administered by Katalina Jacques RN; for anticoagulation; verified by 15:38:43 Fentanyl 100 mcg I.V. was administered by Katalina Jacques RN; for sedation; 15:40:12 A 6 Fr Short sheath was inserted into the Left Femoral artery 15:40:25 A DIAGNOSTIC IMT 5Fr Catheter ([id number]) was advanced over the wire and used for Procedure. 15:40:45 Right leg runoff performed. 15:41:01 Catheter removed. 15:42:41 6 Fr xblad 3.5 guide catheter was inserted over the wire 15:43:13 LCA angiography performed. 15:43:17 Injector settings: Ml/sec: 3, Volume: 6, 15:44:12 WHISPER 300cm guide wire ([id number]) opened to sterile field. 15:44:13 Whisper wire advanced. 15:44:21 Wire advanced across lesion. 15:45:45 Inflation Number: 1 A LIAM OTW 3.0 x 22 stent ([id number]) was prepped and advanced across the Prox LAD. The stent was deployed at 15 ROCKY for 0:10 (min:sec). 15:46:36 Inflation number: 2 The stent balloon was then re-inflated across the Prox LAD to 5 ROCKY for 0:10 (min:sec). 15:49:19 Stent catheter was removed intact over wire. 15:49:20 Wire removed. 15:49:20 Guide catheter removed. 15:51:41 Sheath removed intact; hemostasis achieved with Exoseal to the Left Femoral artery. 15:51:43 Procedure ended.(Physican Out) 15:54:01 Fluoroscopy time 02.90 minutes. 15:54:08 Flurop Dose total: 533 15:54:08 Fluoroscopy dose: 533 mGy 15:54:11 Contrast amount:Isovue 300 52ml. 15:54:12 Sharps counted by scrub and verified by R.N. 15:54:13 Insertion/operative site no bleeding no hematoma. 15:54:17 Post-op/insertion site Left Femoral artery dressed using a 4 x 4 and Tegaderm. 15:54:23 Post Procedure Pulses reassessed and unchanged 15:54:25 Post-procedure physical assessment completed. ASA score P 2 - A patient with mild systemic disease as per Casey Tapia MD. 15:54:47 Procedure type changed to Cath procedure, PCI procedure, Coronary Stent, Coronary Stent Initial, Miscellaneous Procedures, Moderate Sedation up to 30 minutes 15:54:59 Post procedure rhythm: unchanged. 15:55:01 Estimated blood loss: 10 ml 15:55:03 Post procedure instruction explained to patient.Patient verbalizes understanding. 15:55:04 Patient needs reinforcement of post procedure teaching. 15:55:05 Procedure and supply charges have been captured, reviewed, submitted and are correct. 15:55:07 Procedure Complication : No complications 16:01:25 Vital chart was stopped 16:01:26 See physician's report for complete and final results. 16:01:40 Report given to PCU. 16:01:44 Patient transfered to PCU with Bed. 16:01:46 Procedure ended. 16:01:46 Full Disclosure recording stopped 16:01:50 End room use (Document Last) Intervention Summary Intervention Notes Time ActionType Lesion and Equipment Action# Pressure Duration Attributes Used 15:45:45 Place stent Prox LAD LIAM OTW 3.0 1 15 00:10 x 22 stent ([id number]) 15:46:36 Reinflate Prox LAD LIAM OTW 3.0 2 5 00:10 stent x 22 stent balloon ([id number]) Device Usage Item Name Manufacture Quantity Catalog Number [facility] Lot# / Charge Number Stock Stock Serial# Code INFLATOR [facility] 1 [id number] 016048 [id number] 15 [facility] Medical BasixCompak ([id number]) SHEATH 6FR Terumo 1 [id number] 461301 183899 339826 40 Angora (UXZ635) EXOSEAL 6Fr Cardinal 1 EX600 375258 819610 453821 10 (EX600) Health ACIST Acist 1 42307 951734 890138 580153 5 Manifold Medical (31514) Systems Inc ACIST Hand Acist 1 03280 843369 904739 023498 5 Control Medical (94570) Systems Inc ACIST Syringe Acist 1 72810 515743 553246 371992 20 (86526) Medical Systems Inc DIAGNOSTIC St Dru 1 391802 418046 920505 745282 30 WIRE .035 260cm J wire (941501) GUIDE 6FR Cardinal 1 [id number] 403227 196355 400601 10 XBLAD 3.5 Health catheter (74392741) WHISPER 300cm Matute 1 [id number] 972210 483069 807464 5 guide wire Vascular ([id number]) LIAM OTW 3.0 Medtronic 1 [id number] 255235 7325464 506501 5 [id number] x 22 stent ([id number]) DIAGNOSTIC [place] 1 [id number] 404812 400027 29323 5 IMT 5Fr Scientific Catheter ([id number]) Signature Audit Ramona Stage Time Signature Unsigned Intra-Procedure 03/16/2017 Jose Ospina 4:02:42 PM RT(R) Signatures Monitor : Alyssa Dickson RT Signature : Date : Time : Monitor : Jose Ospina RT Signature : Date : Time : [address] [place] [address]
[2017-03-10 18:06] LABS: BASOPHILS 0.2 % (0-2); EOSINOPHILS 1.7 % (0-7); HEMATOCRIT 48.2 % (36.0-48.0); HEMOGLOBIN 17.1 g/dL (12-16); IMMATURE GRANULOCYTES 0.3 % (0-5); LYMPHOCYTES 32.7 % (15-50); MCH 33.3 pg (26.0-34.0); MCHC 35.5 g/dL (31.0-37.0); MCV 93.8 fL (80.0-100.0); MEAN PLATELET VOLUME 9.2 fL (7.4-10.4); MONOCYTES 8.5 % (2-11); NEUTROPHILS 56.6 % (40-80); RBC 5.14 10x6/uL (4.00-5.40); RDW 13.7 % (11.5-14.5); WBC 14.7 10x3/uL (4.8-10.8)
[2017-03-10 18:12] LABS: PLATELET COUNT 431 10x3/uL (130-400)
[2017-03-10 18:56] LABS: APPEARANCE CLEAR (CLEAR); COLOR YELLOW (YELLOW)
[2017-03-10 18:57] LABS: BACTERIA MODERATE /hpf (NONE SEEN); BILIRUBIN NEGATIVE (NEGATIVE); EPITHELIAL CELLS OCC /hpf (0-5); GLUCOSE NEGATIVE (NEGATIVE); KETONE NEGATIVE (NEGATIVE); NITRITE NEGATIVE (NEGATIVE); PROTEIN TRACE mg/dL (NEGATIVE); RED CELLS - URINE OCC /hpf (0-5); SPECIFIC GRAVITY 1.025 (1.005-1.020); UROBILINOGEN NORMAL (NORMAL); WHITE CELLS - URINE 0-5 /hpf (0-5)
[2017-03-10 19:22] LABS: ALBUMIN 3.6 g/dL (3.4-5.0); ALKALINE PHOSPHATASE 71 U/L (46-116); ALT (SGPT) 26 U/L (10-68); CALC OSMOLALITY 288 mosm/kg (275-300); CARBON DIOXIDE 21.7 mmol/L (21.0-32.0); CHLORIDE - SERUM 106 mmol/L (98-107); GLUCOSE 168 mg/dL (74-106); POTASSIUM - SERUM 3.6 mmol/L (3.5-5.1); PROTEIN - SERUM 6.7 g/dL (6.4-8.2); SODIUM 141 mmol/L (136-145); UREA NITROGEN 23 mg/dL (7-18); eGFR NON AFRICAN AMERICAN 27 mL/min (90-120)
[2017-03-10 19:24] LABS: AMYLASE - SERUM 60 U/L (25-115); CHOL - HDL RATIO 3.5 ratio (2.3-4.1); CHOLESTEROL, TOTAL 140 mg/dL (0-200); CKMB 1.3 U/L (0.0-3.6); CREATINE KINASE 63 UL (21-215); HDL CHOLESTEROL 40 mg/dL (32-96); LDL CHOLESTEROL 54 mg/dL (0-100); LDL-HDL RATIO 1.4 ratio (1.5-3.5); LIPASE 202 U/L (73-393); PRO BNP 70 pg/mL (0-125); TRIGLYCERIDE 233 mg/dL (30-200); TROPONIN-I < 0.017 ng/mL (0.000-0.060)
--- NOTE | 2017-03-10 20:48 | NUR ---
PT ARRIVED ON UNIT VIA WHEELCHAIR ESCORTED BY ER STAFF. ORIENTED TO ROOM AND CALL LIGHT. POSITIONED IN BED FOR COMFORT.
[2017-03-10 21:21] VITALS: BP 107/77; BMI 28.9
--- NOTE | 2017-03-10 21:30 | NUR ---
HOME MEDICATION RECONCILLIATION COMPLETE. RECEIVED ORDER FROM DR CHOUDHURY TO RE-START ALL HOME MEDICATIONS.
--- NOTE | 2017-03-10 21:45 | NUR ---
ADMISSION ASSESSMENT AND HISTORY COMPLETE.
--- NOTE | 2017-03-10 22:10 | NUR ---
HS MEDICATIONS GIVEN. ALSO GAVE MORPHINE AND ZOFRAN PER REQUEST FOR NAUSEA AND PAIN AT LEVEL 8/10. WILL MONITOR FOR EFFECTIVENESS.
[2017-03-11] VITALS: BP 100/64
[2017-03-11 04:00] VITALS: BP 96/49
--- NOTE | 2017-03-11 09:26 | NUR ---
REC'D SITTING UP IN BED. ALERT AND ORIENTED X4. REPORTED PAIN 7/10. WILL ADMIN MEDS PRESCRIBED. NO DISTRESS NOTED. INSTURCTED TO CALL IF NEEDED ANYTHING, VERBALIZED UNDERSTANDING. BED LOW, LOCKED, CALL LIGHT IN REACH.
[2017-03-11 10:52] VITALS: BP 110/69
[2017-03-11 11:30] VITALS: Ht 172.7 cm; Wt 84.8 kg
[2017-03-11 12:53] VITALS: BP 129/77
[2017-03-11 17:00] LABS: CREATINE KINASE 44 UL (21-215)
[2017-03-11 17:06] LABS: TROPONIN-I < 0.017 ng/mL (0.000-0.060)
--- NOTE | 2017-03-11 19:00 | NUR ---
REPORT RECEIVED AND CARE OF PT ASSUMED. PT LYING ON LEFT SIDE WITH EYES CLOSED AND EASY RESPIRATIONS. TELEMETRY IN PLACE AND READIN SR AT THIS ASSESSMENT. WILL MONITOR CLOSELY FOR NEEDS.
[2017-03-11 20:00] VITALS: BP 102/57
--- NOTE | 2017-03-11 20:55 | NUR ---
HS MEDICATIONS GIVEN TO INCLUDE NORCO PER REQUEST FOR PAIN AT LEVEL 8/10. WILL MONITOR FOR EFFECTIVENESS.
--- NOTE | 2017-03-11 21:00 | NUR ---
PT DECLINED SNACK.
[2017-03-11 22:22] LABS: CKMB 1.9 U/L (0.0-3.6); CREATINE KINASE 41 UL (21-215)
[2017-03-11 22:26] LABS: TROPONIN-I < 0.017 ng/mL (0.000-0.060)
[2017-03-12] VITALS: BP 117/69
--- NOTE | 2017-03-12 03:23 | NUR ---
PT RESTING ON RIGHT SIDE WITH EYES CLOSED AND UNLABORED BREATHING. SIDE RAILS UP X2 FOR SAFETY. CALL LIGHT WITHIN REACH. NEW BAG OF LR HUNG. WILL CONTNIUE TO MONITOR FOR NEEDS.
[2017-03-12 04:00] VITALS: BP 135/61
[2017-03-12 04:55] LABS: BASOPHILS 0.1 % (0-2); IMMATURE GRANULOCYTES 0.2 % (0-5); LYMPHOCYTES 40.1 % (15-50); MCH 32.3 pg (26.0-34.0); MCHC 33.7 g/dL (31.0-37.0); MEAN PLATELET VOLUME 8.7 fL (7.4-10.4); MONOCYTES 5.7 % (2-11); NEUTROPHILS 52.9 % (40-80); RDW 13.7 % (11.5-14.5); WBC 12.1 10x3/uL (4.8-10.8)
[2017-03-12 04:56] LABS: HEMATOCRIT 36.5 % (36.0-48.0); HEMOGLOBIN 12.3 g/dL (12-16); MCV 95.8 fL (80.0-100.0); PLATELET COUNT 315 10x3/uL (130-400); RBC 3.81 10x6/uL (4.00-5.40)
[2017-03-12 05:38] LABS: ALBUMIN 2.7 g/dL (3.4-5.0); ALKALINE PHOSPHATASE 59 U/L (46-116); ALT (SGPT) 20 U/L (10-68); CALCIUM 9.1 mg/dL (8.5-10.1); CHLORIDE - SERUM 109 mmol/L (98-107); CKMB 1.8 U/L (0.0-3.6); CREATINE KINASE 45 UL (21-215); GLUCOSE 142 mg/dL (74-106); POTASSIUM - SERUM 3.9 mmol/L (3.5-5.1); PROTEIN - SERUM 5.3 g/dL (6.4-8.2); SODIUM 144 mmol/L (136-145); TROPONIN-I < 0.017 ng/mL (0.000-0.060)
[2017-03-12 05:39] LABS: CALC OSMOLALITY 289 mosm/kg (275-300); CARBON DIOXIDE 27.7 mmol/L (21.0-32.0); CREATININE - SERUM 0.8 mg/dL (0.6-1.3); UREA NITROGEN 15 mg/dL (7-18); eGFR NON AFRICAN AMERICAN 77 mL/min (90-120)
--- NOTE | 2017-03-12 10:49 | NUR ---
REC'D SITTING UP IN BED. ALERT AND ORIENTED X4. DENIED PAIN AT THIS TIME. NO DISTRESS NOTED. INSTRUCTED TO CALL IF NEEDED ANYTHING, VERBALIZED UNDERSTANDING. BED LOW, LOCKED, CALL LIGHT IN REACH. WILL CONT TO MONITOR.
[2017-03-12 11:04] VITALS: BP 140/88
[2017-03-12 13:32] VITALS: BP 131/78
--- NOTE | 2017-03-12 19:00 | NUR ---
REPORT RECEIVED AND CARE OF PT ASSUMED. TELEMETRY IN PLACE. IV IN LEFT WRIST PATENT WITH LR INFUSING AT 125 ML / HR. WILL MONITOR CLOSLEY FOR NEEDS. CALL LIGHT WITHIN REACH.
--- NOTE | 2017-03-12 19:30 | NUR ---
REPLACED ALL TELEMETRY PADS. READING SR AT THIS ASSESSMENT.
--- NOTE | 2017-03-12 20:07 | NUR ---
GAVE X2 ORANGE SHERBETS FOR SNACK.
--- NOTE | 2017-03-12 21:10 | NUR ---
HS MEDICATIONS GIVEN TO INCLUDE NORCO PER REQUEST FOR BACK PAIN. WILL MONITOR FOR EFFECTIVENESS.
--- NOTE | 2017-03-13 01:30 | NUR ---
GAVE BENADRYL 25 MG IVP PER REQUEST FOR ITCHING. WILL MONITOR FOR EFFECTIVENESS.
--- NOTE | 2017-03-13 03:36 | NUR ---
GAVE KIBET PER PT REQUEST. NEW BAG OF IV FLUIDS STARTED. WILL CONTINUE TO MONITOR FOR NEEDS.
[2017-03-13 04:00] VITALS: BP 155/65
[2017-03-13 06:36] LABS: BASOPHILS 0 % (0-2); EOSINOPHILS 0 % (0-7); HEMATOCRIT 38.5 % (36.0-48.0); HEMOGLOBIN 13.4 g/dL (12-16); IMMATURE GRANULOCYTES 0.3 % (0-5); LYMPHOCYTES 13.3 % (15-50); MCH 33.4 pg (26.0-34.0); MCHC 34.8 g/dL (31.0-37.0); MEAN PLATELET VOLUME 8.8 fL (7.4-10.4); MONOCYTES 2.5 % (2-11); NEUTROPHILS 83.9 % (40-80); RBC 4.01 10x6/uL (4.00-5.40); RDW 13.4 % (11.5-14.5)
[2017-03-13 06:39] LABS: PLATELET COUNT 236 10x3/uL (130-400); WBC 7.6 10x3/uL (4.8-10.8)
[2017-03-13 07:01] LABS: ALBUMIN 2.9 g/dL (3.4-5.0); ALKALINE PHOSPHATASE 65 U/L (46-116); ALT (SGPT) 21 U/L (10-68); BILIRUBIN - TOTAL 0.28 mg/dL (0.2-1.3); CALC OSMOLALITY 280 mosm/kg (275-300); CALCIUM 9.3 mg/dL (8.5-10.1); CHLORIDE - SERUM 106 mmol/L (98-107); CREATININE - SERUM 0.8 mg/dL (0.6-1.3); GLUCOSE 182 mg/dL (74-106); PROTEIN - SERUM 6.3 g/dL (6.4-8.2); SODIUM 138 mmol/L (136-145); UREA NITROGEN 12 mg/dL (7-18); eGFR NON AFRICAN AMERICAN 77 mL/min (90-120)
[2017-03-13 07:06] LABS: POTASSIUM - SERUM 4.8 mmol/L (3.5-5.1)
--- NOTE | 2017-03-13 08:00 | NUR ---
PT AOX4 RESP EVEN AND NONLABORED PT DENIES NEEDS AT THIS TIME IV TO LEFT WRIST PATENT AND INTACT AT THIS TIME SRX2 BED AT LOWEST SETTING CALL LIGHT WITHIN REACH WILL CONTINUE TO MONITOR
--- NOTE | 2017-03-13 08:17 | CN ---
PATIENT NAME:TATYANA RAYMOND MEDICAL RECORD: [id number] : 55 LOCATION:D.MS [facility] ADMIT DATE: 03/12/17 ACCOUNT: [id number] CONSULTING PHYSICIAN: MICHAEL WADDELL MD REFERRING PHYSICIAN: JF NAGY MD DATE OF CONSULTATION: 03/12/2017 HISTORY OF PRESENT ILLNESS: A 61-year-old female with history of coronary artery disease, status post coronary artery bypass grafting. She has a history of residual disease of angina, fairly well controlled. Recently, had upper respiratory tract infection with attempted treatment as an outpatient and noted to have chest pain with cough, some pleuritic component, also hypotensive and tachycardic. We are asked to see her concerning her cardiovascular status. PAST MEDICAL HISTORY: Includes; 1. History of coronary artery disease. 2. Dyslipidemia. 3. Hypertension. 4. Hyperlipidemia. 5. Osteoarthritis. MEDICATIONS: Include; 1. Protonix 40 mg p.o. daily. 2. Singulair 10 mg p.o. daily. 3. Hydrochlorothiazide 25 daily. 4. [place] 10/325 one q.4 p.r.n. 5. Aspirin 325 daily. 6. Crestor 40 daily. 7. Ranexa 500 b.i.d. 8. Metoprolol 50 daily. 9. Losartan 25 daily. 10. Fenofibrate 134 mg p.o. daily. 11. Zinc daily. 12. Plavix 75 daily. 13. Flexeril 10 a.c. and at bedtime p.r.n. SOCIAL HISTORY: Nonsmoker, nondrinker. She takes care of her ADLs on regular basis. ALLERGIES: Include CONTRAST MEDIA, PENICILLIN, NIACIN, AMITRIPTYLINE, and LEVAQUIN. REVIEW OF SYSTEMS: The patient reports easy bruising but reports no swollen glands. The patient reports no fever, no night sweats, no significant weight gain, no significant weight loss. No significant exercise tolerance. The patient reports no dry eyes, no irritation, no vision change. Patient reports no difficulty hearing and no ear pain. Patient reports no frequent nose bleeds or nose and sinus problems. Patient reports on arm pain on exertion. No shortness of breath while lying down. No history of heart murmur. Patient reports no cough, no wheezing or coughing up blood. Patient reports no abdominal pain, no vomiting. Normal appetite. No diarrhea and not vomiting blood. No nausea and no constipation. Patient reports no incontinence. No difficulty urinating. No hematuria. No increased frequency. Patient reports no muscle aches. No weakness, no arthralgias, no back pain. No swelling of the extremities. Patient reports no abnormal mole, no jaundice, no rashes. Reports CONSULT REPORT [id number] TATYANA RAYMOND no loss of consciousness. No weakness and no numbness. No seizures, dizziness, or headaches. The patient reports no depression, no sleep disturbance, feeling safe in a relationship and no alcohol abuse. Patient reports on fatigue. Reports no runny nose or sinus pressure. No itching, no hives, and no frequent sneezing. PHYSICAL EXAMINATION: GENERAL: Pleasant female in no acute distress. VITAL SIGNS: Currently, blood pressure 140/80, pulse 72 and regular. HEENT: Normocephalic, atraumatic. NECK: No bruits noted. HEART: Regular. LUNGS: Prolonged expiratory phase with expiratory wheezing. ABDOMEN: Soft, nontender. EXTREMITIES: Pulse 2+. No edema. DIAGNOSTIC DATA: ECG without acute change. IMPRESSION: Chest pain, multifactorial at this point, perhaps a pleuritic component, some musculoskeletal. Cardiac enzymes are negative. Appears to be improving with current treatment including improvement in BUN and creatinine. I agree with current management. TRANSINT:[id number] Voice Confirmation ID: [id number] DOCUMENT ID: [id number] MICHAEL WADDELL MD at 0817 CC: [id number] DICTATION DATE: 03/12/17 1147 CERTIFIED SURGICAL TECHNICIAN: 03/12/17 1352 [place] [address]
[2017-03-13] MEDS ORDERED: LYRICA100 MG PO (09:27)
[2017-03-13 09:33] VITALS: BP 115/77
[2017-03-13 13:03] VITALS: BP 152/81
[2017-03-13 16:32] VITALS: BP 138/82
[2017-03-13 20:00] VITALS: BP 150/82
--- NOTE | 2017-03-13 20:10 | NUR ---
SIT UP IN BED AND WATCH TV.
--- NOTE | 2017-03-13 21:25 | NUR ---
PT C/O NAUSEA, ZOFRAN GIVEN BY NAKUL WADE.
--- NOTE | 2017-03-14 01:43 | NUR ---
REST QUIETLY IN BED, CALL LIGHT IN REACH.
[2017-03-14 04:00] VITALS: BP 153/87
--- NOTE | 2017-03-14 04:25 | NUR ---
REST IN BED, CALL LIGHT IN REACH.
[2017-03-14 05:44] LABS: ALBUMIN 3.2 g/dL (3.4-5.0); ALKALINE PHOSPHATASE 60 U/L (46-116); ALT (SGPT) 22 U/L (10-68); AMYLASE - SERUM 47 U/L (25-115); CALC OSMOLALITY 279 mosm/kg (275-300); CALCIUM 9.7 mg/dL (8.5-10.1); CARBON DIOXIDE 26.8 mmol/L (21.0-32.0); CHLORIDE - SERUM 102 mmol/L (98-107); CREATININE - SERUM 0.8 mg/dL (0.6-1.3); GLUCOSE 176 mg/dL (74-106); LIPASE 122 U/L (73-393); POTASSIUM - SERUM 4.1 mmol/L (3.5-5.1); SODIUM 138 mmol/L (136-145); UREA NITROGEN 12 mg/dL (7-18); eGFR NON AFRICAN AMERICAN 77 mL/min (90-120)
[2017-03-14 06:17] LABS: HEMATOCRIT 39.1 % (36.0-48.0); HEMOGLOBIN 13.3 g/dL (12-16); MCH 32.3 pg (26.0-34.0); MCV 94.9 fL (80.0-100.0); PLATELET COUNT 293 10x3/uL (130-400); RBC 4.12 10x6/uL (4.00-5.40); RDW 13.4 % (11.5-14.5); WBC 21.5 10x3/uL (4.8-10.8)
[2017-03-14 07:40] LABS: LYMPHOCYTES 13 % (15-50); MONOCYTES 1 % (2-11); NEUTROPHILS 84 % (40-80); PLATELET ESTIMATE NORMAL
--- NOTE | 2017-03-14 08:48 | NUR ---
PT AM MEDS ADMINSITERED. PT REQ AND REC'D PRN MEDICATION FOR NAUSEA AND PAIN. ZOFRAN AND MORPHINE GIVEN AT THIS TIME. PT WEARING O2 AT 2LPM AND LEFT WRIST IV IS PATENT RUNNING LR @ 125. WCTM.
[2017-03-14 09:00] VITALS: BP 136/62
[2017-03-14 12:25] VITALS: BP 180/74
--- NOTE | 2017-03-14 12:41 | NUR ---
PT C/O OF CRAMPING CHEST PAIN. VS BP 151/92 T97.8 RR19 HR76 SAT95%. CARDIAC ENZ AND EKG ORDERED Q6X3. LAB AND RESPIRATORY NOTIFIED.
--- NOTE | 2017-03-14 13:50 | NUR ---
NUTRITION F/U CHART REVIEWED, PT VISIT. NOW ON AHA DIET WITH REG LIQUIDS. 50 TO 75% INTAKE RECENT MEALS. WILL CONTINUE TO PROVIDE DIET, MONITOR PO INTAKE. RD FOLLOWING
[2017-03-14 13:51] LABS: CREATINE KINASE 34 UL (21-215)
[2017-03-14 13:52] LABS: TROPONIN-I < 0.017 ng/mL (0.000-0.060)
--- NOTE | 2017-03-14 15:37 | NUR ---
PT RESTING IN BED, DENIES NEEDS. WCTM.
[2017-03-14 16:15] VITALS: BP 138/81
[2017-03-14 19:32] LABS: CKMB 0.7 U/L (0.0-3.6); CREATINE KINASE 30 UL (21-215)
[2017-03-14 19:33] LABS: TROPONIN-I < 0.017 ng/mL (0.000-0.060)
[2017-03-14 20:49] VITALS: BP 150/81
[2017-03-14 23:44] VITALS: BP 159/78
--- NOTE | 2017-03-15 01:46 | NUR ---
EYES CLOSED. RESP EVEN AND UNLABORED. NO DISTRESS NOTED. CL IN REACH.
[2017-03-15 02:01] LABS: CKMB 0.7 U/L (0.0-3.6); CREATINE KINASE 39 UL (21-215); TROPONIN-I < 0.017 ng/mL (0.000-0.060)
--- NOTE | 2017-03-15 04:08 | NUR ---
PT RESTING IN BED WITH NO DISTRESS. RESPIRATIONS EVEN AND UNLABORED. SIDE RAILS X 2. BED LOW. CALL LIGHT IN REACH.
[2017-03-15 04:24] VITALS: BP 158/74
--- NOTE | 2017-03-15 05:18 | NUR ---
AWAKE,ALERT. NO COMPLAINTS VOICED. CL IN REACH.
[2017-03-15 06:27] LABS: BASOPHILS 0 % (0-2); EOSINOPHILS 0 % (0-7); HEMATOCRIT 38.9 % (36.0-48.0); HEMOGLOBIN 13.1 g/dL (12-16); IMMATURE GRANULOCYTES 0.3 % (0-5); LYMPHOCYTES 6.1 % (15-50); MCH 32.1 pg (26.0-34.0); MCHC 33.7 g/dL (31.0-37.0); MCV 95.3 fL (80.0-100.0); MEAN PLATELET VOLUME 9.2 fL (7.4-10.4); MONOCYTES 2.2 % (2-11); NEUTROPHILS 91.4 % (40-80); PLATELET COUNT 299 10x3/uL (130-400); RBC 4.08 10x6/uL (4.00-5.40); RDW 13.5 % (11.5-14.5); WBC 21.2 10x3/uL (4.8-10.8)
[2017-03-15 06:32] LABS: ALBUMIN 3.1 g/dL (3.4-5.0); ANION GAP 12.4 mmol/L (8-16); BILIRUBIN - TOTAL 0.17 mg/dL (0.2-1.3); CALCIUM 8.9 mg/dL (8.5-10.1); CARBON DIOXIDE 28.3 mmol/L (21.0-32.0); CREATININE - SERUM 0.9 mg/dL (0.6-1.3); POTASSIUM - SERUM 3.7 mmol/L (3.5-5.1); PROTEIN - SERUM 5.9 g/dL (6.4-8.2)
[2017-03-15 08:10] VITALS: BP 152/91
--- NOTE | 2017-03-15 12:30 | NUR ---
Patient Name: TATYANA RAYMOND Admission Status: ER Accout number: [id number] Admission Date: 03-12-2017 : 1955 Admission Diagnosis: Attending: JF NAGY Current LOS: 3 Anticipated DC Date: 03-17-2017 Planned Disposition: Home Primary Insurance: MEDICARE A & B Discharge Planning Comments: CM MET WITH PATIENT REGARDING D/C NEEDS AND PLANS. PATIENT STATED SUYAPA (FAMILY) WILL DRIVE HER HOME AT DISCHARGE. PATIENT STATED THERE ARE NO STEPS OR STAIRS AT HER HOME. PATIENT STATED SHE NEEDS HELP AT TIMES WITH DRESSING AND BATHING BECAUSE OF BENDING OVER. PATIENT HAS A ROLATOR WALKER AT HOME BUT DOES NOT USE IT. PATIENTS PCP IS DR. YATES AND PHARMACY IS [facility]. PATIENT DENIES NEED FOR HOME HEALTH AT THIS TIME. CM WILL CONTINUE TO FOLLOW PATIENT WITH D/C NEEDS AND PLANS. PCP DR. YATES [facility]- [phone] SUYAPA () [phone] Sales Management Trainee: Tresa Boo Is the patient Alert and Oriented? Yes 0 * How many steps to enter\exit or inside your home? 0 0 * PCP DR. YATES 0 * [facility] 0 * Preadmission Environment Home with Family 0 * ADLs Independent 0 * Equipment Rolling Walker 0 * List name and contact numbers for known caregivers / representatives who currently or will assist patient after discharge: SUYAPA () [phone] 0 * Community resources currently utilized None 0 * Additional services required to return to the preadmission environment? Yes 0 * Can the patient safely return to the preadmission environment? Yes 0 * Has this patient been hospitalized within the prior 30 days at any hospital? No 0 Grand Total: 0
--- NOTE | 2017-03-15 12:58 | NUR ---
RECIEVED FROM TRACTOR MECHANIC HELPER BY BED. VS WNL. RIGHT GROIN STABLE STABLE WITH FEMSTOP INTACT. WILL MONITOR.
--- NOTE | 2017-03-15 13:50 | NUR ---
HEMATOMA TO RIGHT GROIN NOTED. AIRPORT DUTY MANAGER BYTIFIED. AT BS REPOSITIONG FEMSTOP AND HOLDING PRESSURE. WILL MONITOR.
--- NOTE | 2017-03-15 15:21 | NUR ---
GINNA DCD SANDBAGS AND RELEASED PRESSURE FROM FEMSTOP. HEMATOMA AREA MARDED WITH PEN. WILL CONT. TO MONITOR.
[2017-03-15 15:43] VITALS: BP 129/87
[2017-03-15 22:15] VITALS: BP 147/77
[2017-03-16] VITALS: BP 107/56
[2017-03-16 04:00] VITALS: BP 113/56
--- NOTE | 2017-03-16 04:36 | NUR ---
DISHCLOTH FOLDER AT BEDSIDE TO OBTAIN VITALS, CALL LIGHT IN REACH. WILL CONTINUE WITH PLAN OF CARE.
[2017-03-16 05:59] LABS: BASOPHILS 0 % (0-2); EOSINOPHILS 0 % (0-7); HEMATOCRIT 35.5 % (36.0-48.0); IMMATURE GRANULOCYTES 0.3 % (0-5); LYMPHOCYTES 11.9 % (15-50); MCH 32.1 pg (26.0-34.0); MCHC 33.8 g/dL (31.0-37.0); MCV 94.9 fL (80.0-100.0); MONOCYTES 3.3 % (2-11); NEUTROPHILS 84.5 % (40-80); PLATELET COUNT 242 10x3/uL (130-400); RBC 3.74 10x6/uL (4.00-5.40); RDW 13.4 % (11.5-14.5)
[2017-03-16 06:07] LABS: WBC 12.9 10x3/uL (4.8-10.8)
[2017-03-16 06:44] LABS: ALBUMIN 2.7 g/dL (3.4-5.0); ALKALINE PHOSPHATASE 47 U/L (46-116); ALT (SGPT) 24 U/L (10-68); CALC OSMOLALITY 282 mosm/kg (275-300); CALCIUM 9.2 mg/dL (8.5-10.1); CARBON DIOXIDE 29.9 mmol/L (21.0-32.0); CHLORIDE - SERUM 104 mmol/L (98-107); CREATININE - SERUM 0.8 mg/dL (0.6-1.3); GLUCOSE 171 mg/dL (74-106); PROTEIN - SERUM 5.5 g/dL (6.4-8.2); SODIUM 138 mmol/L (136-145); UREA NITROGEN 20 mg/dL (7-18); eGFR NON AFRICAN AMERICAN 77 mL/min (90-120)
[2017-03-16 06:47] LABS: POTASSIUM - SERUM 4.5 mmol/L (3.5-5.1)
[2017-03-16 08:46] VITALS: BP 141/86
[2017-03-16 12:07] VITALS: BP 148/82
--- NOTE | 2017-03-16 13:10 | NUR ---
PRE-OPS GIVEN. LEAVING FOR LASTING ROOM SUPERVISOR BY BED.
--- NOTE | 2017-03-16 15:15 | NUR ---
PRE-OPS GIVEN. TO STUNT PERSON BY BED.
--- NOTE | 2017-03-16 16:19 | NUR ---
BACK FROM STITCH BONDER MACHINE OPERATOR HELPER. VS WNL. LEFT GROIN STABLE WITHOUT BLEEDING OR HEMATOMA NOTED. WILL MONITOR.
[2017-03-16 19:00] VITALS: BP 99/58
--- NOTE | 2017-03-16 19:46 | NUR ---
RESUMED CARE OF PT, LYING IN BED RESPIRATIONS EVEN AND UNLABORED ON ROOM AIR. LEFT HAND INFUSING NS @ 100. 80 SR ON TELEMETRY. LEFT GROIN CATH SITE C/D/I, PEDAL PULSE PALPABLE. RIGHT GROIN BRUISING WORSENING FROM YESTERDAY, PEDAL PALPABLE. CALL LIGHT IN REACH. WILL CONTINUE TO MONITOR. SEE NURSE ASSESSMEN.
[2017-03-17 04:00] VITALS: BP 124/70
[2017-03-17 08:55] VITALS: BP 117/69
[2017-03-17] MEDS ORDERED: PREDNISONE10 MG PO (10:43)
--- NOTE | 2017-03-17 11:12 | NUR ---
Patient Name: TATYANA RAYMOND Admission Status: ER Accout number: [id number] Admission Date: 03-12-2017 : 1955 Admission Diagnosis:BRONCHITIS, NOT SPECIFIED ACUTE OR CHRONIC Attending: JF NAGY Current LOS: 5 Anticipated DC Date: 03-17-2017 Planned Disposition: Home Primary Insurance: MEDICARE A & B Discharge Planning Comments: CM MET WITH PT IN ROOM TO DISCUSS DISCHARGE NEEDS AND PLANNING. CM DISCUSSED AVAILABILITY OF HOME HEALTH, REHAB SERVICES AND MEDICAL EQUIPMENT. PT DENIES DISCHARGE NEEDS. PT HAS FAMILY HERE TO TRANSPORT HOME AT DISCHARGE TODAY. IMPORTANT MESSAGE FROM MEDICARE PROVIDED AND EXPLAINED. Helpdesk Administrator: Oumar Dougherty
[2017-03-17] MEDS ORDERED: HYDROXYZINE PA100 MG PO (11:38)
[2017-03-17 11:46] VITALS: BP 135/81
--- NOTE | 2017-03-17 11:58 | NUR ---
IV AND TELEMETRY DCD. DC PLANS GIVEN. UNDERSTANDING VOICED.
--- NOTE | 2017-03-17 12:26 | NUR ---
ESCORTED TO CAR BY W/C.
--- NOTE | 2017-03-29 15:46 | OP ---
PATIENT NAME: TATYANA RAYMOND MEDICAL RECORD: [id number] :55 LOCATION:D.M2 D.2117 ADMISSION DATE:03/12/17 SURGEON: SAMARA BENDER MD DATE OF OPERATION: 03/16/2017 PROCEDURES: 1. PTCA stent to LAD. 2. Selective coronary angiography. INDICATION: Angina and coronary artery disease. PROCEDURE IN DETAIL: After informed consent was obtained and after detailed explanation of risks, benefits as well as alternative therapies, the patient elected to proceed with angiogram and angioplasty. The left femoral area was prepped and draped in normal sterile fashion. Left femoral artery was cannulated via modified Seldinger technique with placement of 6-Omani sheath. All catheters exchanged through this sheath. FINDINGS: The left anterior descending has 80% stenosis addressed with a 3.0 x 22 mm Srinath. Result was 0% residual stenosis. OVERALL IMPRESSION: Successful percutaneous transluminal coronary angioplasty stent of the left anterior descending going from 80% initial stenosis to 0% residual. TRANSINT:[id number] Voice Confirmation ID: [id number] DOCUMENT ID: [id number] SAMARA BENDER MD at 1546 CC: [id number] DICTATION DATE: 03/16/17 1551 INSTRUMENT WORKER: 03/16/17 1800 DIS IN 03/17/17 [place] [id number] [place] [id number]
--- NOTE | 2017-03-29 15:46 | OP ---
PATIENT NAME: TATYANA RAYMOND MEDICAL RECORD: [id number] :55 LOCATION:D.M2 D.2117 ADMISSION DATE:03/12/17 SURGEON: SAMARA BENDER MD DATE OF OPERATION: 03/15/2017 PROCEDURES: 1. PTCA stent vein graft to LAD diagonal. 2. Intravascular ultrasound. 3. Left heart catheterization. 4. Selective coronary angiography. 5. Left ventriculogram. 6. Vein graft angiography. 7. GATES angiography. INDICATION: Angina and coronary artery disease. PROCEDURE IN DETAIL: After informed consent was obtained and after detailed explanation of risks, benefits as well as alternative therapies, the patient elected to proceed with angiogram and angioplasty. The right femoral area was prepped and draped in normal sterile fashion. The right femoral artery was cannulated via modified Seldinger technique with placement of a 6-Macedonian sheath. All catheters exchanged through this sheath. FINDINGS: Left ventriculogram was performed in standard 30-degree GARCIA view reveals preserved cardiac wall motion, ejection fraction 50% to 55%. SELECTIVE CORONARY ANGIOGRAPHY: 1. Left main showed no significant angiographic disease. 2. Left anterior descending has 80% stenosis in the proximal vessel. 3. GATES to the LAD is closed. 4. The LAD diagonal has 80% stenosis. 5. Vein graft to the diagonal is patent, but there is 70% stenosis in its proximal vessel confirmed by intravascular ultrasound. 6. Right coronary is totally occluded. 7. Vein graft to the right coronary is widely patent. Previously placed stents in this graft are widely patent with no significant restenosis. No disease elsewise throughout the vein graft to the right or in the distal right coronary artery. PTCA STENT OF THE VEIN GRAFT TO THE LAD DIAGONAL: The stent used was a 3.5 x 15 mm Srinath. Result was 0% residual stenosis. OVERALL IMPRESSION: Successful percutaneous transluminal coronary angioplasty stent of the vein graft to the left anterior descending diagonal going from 70% initial stenosis to 0% residual stenosis. PLAN: PTCA stent of the LAD in the a.m. TRANSINT:[id number] Voice Confirmation ID: [id number] DOCUMENT ID: [id number] OPERATIVE REPORT [id number] TATYANA RAYMOND SAMARA BENDER MD at 1546 CC: [id number] DICTATION DATE: 03/15/17 1231 EQUIPMENT INSPECTOR: 03/15/17 1529 DIS IN 03/17/17 [facility] [address] [id number]
--- NOTE | 2017-03-29 15:46 | CN ---
PATIENT NAME:TATYANA RAYMOND MEDICAL RECORD: [id number] : 55 LOCATION:D. D.2117 ADMIT DATE: 03/12/17 ACCOUNT: [id number] CONSULTING PHYSICIAN: SAMARA BENDER MD REFERRING PHYSICIAN: JF NAGY MD DATE OF CONSULTATION: 03/14/2017 DIAGNOSES: 1. Angina. 2. Coronary artery disease. 3. Previous coronary stenting. 4. Bronchitis. 5. Hyperlipidemia. 6. Hypertension. HISTORY: Mrs. Raymond presents with chest pain and bronchitis symptomatology. She has been treated for her bronchitis; however, she continues to have episodes of chest pain. She even had chest pain this afternoon. It is just like that of her previous angina. Her last cardiac stent has been a number of years ago. REVIEW OF SYSTEMS: The patient reports easy bruising but reports no swollen glands. The patient reports no fever, no night sweats, no significant weight gain, no significant weight loss. No significant exercise tolerance. The patient reports no dry eyes, no irritation, no vision change. Patient reports no difficulty hearing and no ear pain. Patient reports no frequent nose bleeds or nose and sinus problems. Patient reports on arm pain on exertion. No shortness of breath while lying down. No history of heart murmur. Patient reports no cough, no wheezing or coughing up blood. Patient reports no abdominal pain, no vomiting. Normal appetite. No diarrhea and not vomiting blood. No nausea and no constipation. Patient reports no incontinence. No difficulty urinating. No hematuria. No increased frequency. Patient reports no muscle aches. No weakness, no arthralgias, no back pain. No swelling of the extremities. Patient reports no abnormal mole, no jaundice, no rashes. Reports no loss of consciousness. No weakness and no numbness. No seizures, dizziness, or headaches. The patient reports no depression, no sleep disturbance, feeling safe in a relationship and no alcohol abuse. Patient reports on fatigue. Reports no runny nose or sinus pressure. No itching, no hives, and no frequent sneezing. PHYSICAL EXAMINATION: GENERAL APPEARANCE: Well-nourished, well-developed, appears stated age. Level of distress, comfortable. PSYCHIATRIC: Mental status, alert, normal affect. Orientation, oriented to time, place and person. EYES: Lids and conjunctiva, noninjected. No discharge, no pallor. ENT: Lips, teeth, gums, normal dentition. Oropharynx, no cyanosis, no pallor. NECK: Carotid arteries, bilateral normal upstroke, no bruits, no thrills. JUGULAR VEINS: No jugular venous pressure or distention. CERVICAL LYMPH NODES: Nontender, nonenlarged. THYROID: Not enlarged. Nontender. No nodules. LUNGS: Respiratory effort, unlabored. CHEST: Normal curvature. No thoracic deformity. No chest wall tenderness. Percussion, resonant. Auscultation, clear. No wheezes, no rales, no rhonchi. CARDIOVASCULAR: Precordial exam, nondisplaced. No heaves or pericardial CONSULT REPORT [id number] TATYANA RAYMOND thrills. Rate and rhythm, regular. Heart sounds, normal S1, normal S2. No S3, no gallop, no rub. Systolic murmur, not heard. Diastolic murmur, not heard. EXTREMITIES: No cyanosis, no edema. Peripheral pulses, full and equal in all extremities, except as noted. No bruits appreciated. ABDOMEN: Soft, nondistended. Normal aorta. No bruit. Nontender. No masses. Liver, nontender, no hepatomegaly. Spleen, nontender, no splenomegaly. MUSCULOSKELETAL: No joint tenderness. No joint swelling. No erythema. NEUROLOGICAL: Normal gait, normal strength, normal tone. SKIN: Warm and dry. OVERALL IMPRESSION: Chest pain compatible with angina, continued chest pain despite treatment for the bronchitis. She may have recurrent hemodynamically significant coronary artery disease. We will proceed with coronary angiography. Further care depends upon findings of the angiography. TRANSINT:[id number] Voice Confirmation ID: [id number] DOCUMENT ID: [id number] SAMARA BENDER MD at 1546 CC: [id number] DICTATION DATE: 03/14/171555 FOOD GENERAL MANAGER: 03/14/17 175 DIS IN 03/17/17 [place] [id number] [place] [address]
== END 2017-03-17 12:27 | disposition home or self-care (01) | DRG 247 ==
LOC: D.ER 17:21 → D.MS 19:46 → OBSVTIME 19:46 → D.SDCHOLD 03-11 16:27 → D.MS 03-11 16:28 → D.M2 03-12 15:22
PROVIDERS: Family Medicine; Internal Medicine Interventional Cardiology; ADMIT Family Medicine
PROC: 4A023N7 Measurement of Cardiac Sampling and Pressure, Left Heart, Percutaneous Approach (ICD-10-PCS; 2017-03-15)
PROC: B2111ZZ Fluoroscopy of Multiple Coronary Arteries using Low Osmolar Contrast (ICD-10-PCS; 2017-03-15)
PROC: B2181ZZ Fluoroscopy of Left Internal Mammary Bypass Graft using Low Osmolar Contrast (ICD-10-PCS; 2017-03-15)
PROC: B2151ZZ Fluoroscopy of Left Heart using Low Osmolar Contrast (ICD-10-PCS; 2017-03-15)
PROC: 027034Z Dilation of Coronary Artery, One Artery with Drug-eluting Intraluminal Device, Percutaneous Approach (ICD-10-PCS; principal; 2017-03-15 12:15)
PROC: B240ZZ3 Ultrasonography of Single Coronary Artery, Intravascular (ICD-10-PCS; 2017-03-15 12:15)
PROC: 027034Z Dilation of Coronary Artery, One Artery with Drug-eluting Intraluminal Device, Percutaneous Approach (ICD-10-PCS; 2017-03-16)
DX: I25.119 Atherosclerotic heart disease of native coronary artery with unspecified angina pectoris (principal); J98.11 Atelectasis; I95.9 Hypotension, unspecified; E78.5 Hyperlipidemia, unspecified; I10 Essential (primary) hypertension; M19.90 Unspecified osteoarthritis, unspecified site; J20.9 Acute bronchitis, unspecified; K59.00 Constipation, unspecified; Z95.1 Presence of aortocoronary bypass graft; K21.9 Gastro-esophageal reflux disease without esophagitis; F32.9 Major depressive disorder, single episode, unspecified

== ENCOUNTER 2017-05-19 09:52 | Day surgery (SDC) | payer MEDICARE ==
[~2017-05-19] VITALS: Ht 172.7 cm; Wt 88.6 kg
--- NOTE | ~2017-05-19 | OP ---
PATIENT NAME: TATYANA RAYMOND MEDICAL RECORD: [id number] :55 LOCATION:D.MS [facility]8 ADMISSION DATE:05/19/17 SURGEON: HANNAH ARROYO DO DATE OF OPERATION: 05/20/2017 PROCEDURE PERFORMED: Left radial head arthroplasty. PREOPERATIVE DIAGNOSIS: Left radial head fracture that was comminuted and displaced. POSTOPERATIVE DIAGNOSIS: Left radial head fracture that was comminuted and displaced. INDICATIONS: Ms. Raymond is a 61-year-old right hand dominant female who presented to the ER after falling onto her left elbow today. She was seen to have a displaced radial head fracture on x-ray and CT and she was admitted to the hospital for pain control and to get her radial head fixed. I discussed the risks and benefits of procedure with her as well as different options such as ORIF, and she said that she did not want to be down very long and she wanted to get back to doing things and she preferred to have the arthroplasty done. She was informed of the risks and benefits of the procedure including infection, bleeding, damage to the radial nerve and any of the nerves about the elbow, the median nerve, and posterior interosseous nerve. She was informed of a very close proximity; however, I would be careful during the procedure to the posterior interosseous nerve as well as the radial nerve. She understood this and signed the consent to have the procedure done. DESCRIPTION OF PROCEDURE: The patient was given a block by anesthesia in the preoperative area and taken to operative suite, laid in supine position, given general anesthetic. The tourniquet was placed high upon the left arm and then the left arm was prepped and draped in sterile fashion. The patient was given vancomycin preoperatively due to a penicillin allergy. Once this was given and she had been prepped and draped, timeout was performed. Everyone was in agreeance with the time-out; we have the correct patient, correct side, correct site and correct procedure. Once this was done, the incision was marked out and the left lower extremity was exsanguinated with an Esmarch and then the tourniquet was inflated, tourniquet was up for 44 minutes total. Incision was made over the lateral epicondyle in a diagonal, extending distally over the forearm. Dissection was made down to the extensor digitorum comminus and this was divided in half, taking some fibers anterior and some posterior. The radial head was encountered and a Hohmann was placed posteriorly to expose it. Then, the [place] was placed anteriorly. The hand was kept in pronation the whole time to protect the posterior interosseous nerve from being injured. This was throughout the procedure. Once the radial head was exposed, a sagittal saw was used to make a cut and the neck was cut. We then did a trial sizer and had to remove 2 mm more neck. This was done with the special neck retractor and set holding the neck using it as a guide as well. Then, broaching began and broached up to a size 10. Trial and implant, radial head sizes 24s, the [employer] radial head, trialed to size, took x-rays and seemed to be in good position just at the radial notch and just distal to the bone at the joint line. This was in pronation and supination, this sized to be well, and she had good range of motion in flexion, extension and pronation and supination with the sizing. We then removed that and put the implant in and the fovea of the ulna that was previously marked at the wrist. Once the implant was put into place, the guide was put on the fovea of the ulna at the wrist and then the screw was OPERATIVE REPORT [id number] TATYANA RAYMOND tightened down to set the rotation of the radial head. X-rays were then taken confirming good placement in pronation and supination on AP and the wound was thoroughly irrigated and then the extensor digitorum communis and the capsule were closed in one layer with 0 Vicryl in a [id number] fashion and then the tourniquet was let down. Any bleeders were coagulated at that time and then the skin was closed with 2-0 Vicryl in an inverted interrupted fashion, 4-0 Monocryl running on the skin and then Steri-Strips were placed over that and then Adaptic, 4 x 4s, Webril were used on the arm and the arm was wrapped from the hand up to above the elbow with an Juvenal wrap. The patient was awakened and taken to the recovery in stable condition. Tourniquet let down at 44 minutes. Complications were none. Blood loss was minimal. TRANSINT:[id number] Voice Confirmation ID: [id number] DOCUMENT ID: [id number] HANNAH ARROYO DO at 1808 CC: [id number] DICTATION DATE: 05/20/17 0140 CRUSHER SCREEN REPAIRER: 05/20/17 1028 ADM IN [facility] [address] [place] [id number]
[~2017-05-19 09:52] MED LIST changes: +HYDROXYZINE PA100 MG PO; +PREDNISONE10 MG PO
[2017-05-19 18:40] VITALS: BP 165/97
[2017-05-19 20:00] VITALS: BP 136/87
[2017-05-19 20:12] VITALS: Ht 172.7 cm; Wt 88.6 kg
[2017-05-20 04:00] VITALS: BP 146/82
[2017-05-20 06:35] LABS: BASOPHILS 0 % (0-2); EOSINOPHILS 0 % (0-7); HEMATOCRIT 39.7 % (36.0-48.0); HEMOGLOBIN 13.4 g/dL (12-16); IMMATURE GRANULOCYTES 0.1 % (0-5); LYMPHOCYTES 9.7 % (15-50); MCH 32.2 pg (26.0-34.0); MCHC 33.8 g/dL (31.0-37.0); MCV 95.4 fL (80.0-100.0); MEAN PLATELET VOLUME 9.3 fL (7.4-10.4); MONOCYTES 3.2 % (2-11); PLATELET COUNT 214 10x3/uL (130-400); RBC 4.16 10x6/uL (4.00-5.40); RDW 13.1 % (11.5-14.5); WBC 9.2 10x3/uL (4.8-10.8)
[2017-05-20 06:51] LABS: ALBUMIN 3.4 g/dL (3.4-5.0); ANION GAP 14.3 mmol/L (8-16); BILIRUBIN - TOTAL 0.2 mg/dL (0.2-1.3); CALCIUM 8.3 mg/dL (8.5-10.1); CARBON DIOXIDE 23.5 mmol/L (21.0-32.0); CREATININE - SERUM 0.9 mg/dL (0.6-1.3); POTASSIUM - SERUM 3.8 mmol/L (3.5-5.1); PROTEIN - SERUM 6.4 g/dL (6.4-8.2)
[2017-05-20 07:41] VITALS: BP 155/83
[2017-05-20] MEDS ORDERED: OXYCODONE HCL5 MG PO (11:14)
[2017-05-20] MEDS ORDERED: HYDROXYZINE PA100 MG PO (12:10)
[2017-05-20 12:27] VITALS: BP 149/82
== END 2017-05-20 19:02 | disposition home or self-care (01) ==
LOC: D.ER 09:52 → D.OPS 09:52 → D.MS 11:46 → D.SDCHOLD 12:13 → D.ER 12:13 → D.SDCHOLD 12:44 → D.EDHOLD 12:44 → D.MS 13:27 → D.EDHOLD 13:27 → EDSTATUS 14:00 → D.MS 05-20 19:02 → D.OPS 05-20 19:02
PROVIDERS: Family Medicine
DX: S52.122A Displaced fracture of head of left radius, initial encounter for closed fracture (principal); W19.XXXA Unspecified fall, initial encounter; I10 Essential (primary) hypertension; I25.10 Atherosclerotic heart disease of native coronary artery without angina pectoris; Z95.5 Presence of coronary angioplasty implant and graft; Z95.1 Presence of aortocoronary bypass graft; I25.2 Old myocardial infarction; I48.91 Unspecified atrial fibrillation; J45.909 Unspecified asthma, uncomplicated; Z79.82 Long term (current) use of aspirin; Z79.02 Long term (current) use of antithrombotics/antiplatelets; Z79.899 Other long term (current) drug therapy; Z88.5 Allergy status to narcotic agent; Z88.0 Allergy status to penicillin; Z88.1 Allergy status to other antibiotic agents; Z91.041 Radiographic dye allergy status

== ENCOUNTER 2017-05-29 13:33 | Emergency (ER) | payer MEDICARE ==
[2017-05-19 20:12] VITALS: BMI 29.7
[~2017-05-29 13:33] MED LIST changes: +OXYCODONE HCL5 MG PO
== END 2017-05-29 16:25 | disposition home or self-care (01) ==
LOC: D.ER 13:33
DX: F41.9 Anxiety disorder, unspecified (principal); I10 Essential (primary) hypertension; I49.3 Ventricular premature depolarization

== ENCOUNTER → 2017-06-23 10:12 | Outpatient (CLI) | payer MEDICARE ==
[2017-05-19 20:12] VITALS: BMI 29.7
== END | disposition home or self-care (01) ==
LOC: D.CT 10:12
DX: R91.1 Solitary pulmonary nodule (principal)

== ENCOUNTER → 2018-02-20 10:36 | Outpatient (CLI) | payer MEDICARE ==
[2017-05-19 20:12] VITALS: BMI 29.7
[2018-02-20 11:14] LABS: BASOPHILS 0.1 % (0-2); EOSINOPHILS 1.4 % (0-7); HEMATOCRIT 43.3 % (36.0-48.0); IMMATURE GRANULOCYTES 0.3 % (0-5); LYMPHOCYTES 34.7 % (15-50); MCH 32.3 pg (26.0-34.0); MCHC 34.6 g/dL (31.0-37.0); MCV 93.3 fL (80.0-100.0); MEAN PLATELET VOLUME 9.2 fL (7.4-10.4); MONOCYTES 6.1 % (2-11); NEUTROPHILS 57.4 % (40-80); RBC 4.64 10x6/uL (4.00-5.40); RDW 13.3 % (11.5-14.5); WBC 6.9 10x3/uL (4.8-10.8)
[2018-02-20 11:18] LABS: PLATELET COUNT 317 10x3/uL (130-400)
== END | disposition home or self-care (01) ==
LOC: D.LAB 10:36
PROVIDERS: Internal Medicine Gastroenterology
DX: K92.1 Melena (principal); R19.4 Change in bowel habit; R10.84 Generalized abdominal pain

== ENCOUNTER → 2018-03-21 13:42 | Outpatient (CLI) | payer MEDICARE ==
[2017-05-19 20:12] VITALS: BMI 29.7
== END | disposition home or self-care (01) ==
LOC: D.CT 13:42
DX: R91.1 Solitary pulmonary nodule (principal)

== ENCOUNTER → 2018-05-14 10:18 | Outpatient (CLI) | payer MEDICARE ==
[2017-05-19 20:12] VITALS: BMI 29.7
--- NOTE | 2018-05-15 10:45 | EC ---
PATIENT:TATYANA RAYMOND DATE OF SERVICE: 05/14/18 SEX: F MEDICAL RECORD: [id number] DATE OF : 55 LOCATION:D.[facility] AGE OF PATIENT: 62 ADMISSION DATE: 05/14/18 REFERRING PHYSICIAN: INTERPRETING PHYSICIAN: SAMARA BENDER MD ECHOCARDIOGRAM REPORT ECHO CHARGES 4 ECHO COMPLETE Date: 05/14/18 CLINICAL DIAGNOSIS: CAD/THORACIC ANEURYSM ECHOCARDIOGRAPHIC MEASUREMENTS (adult normal given) AC root (d.<3.7cm) 3.3 cm LV Septum d (<1.2 cm> 1.4 cm Valve Excursion 2.0 cm LV Septum (systole) 1.7 cm Left Atria (s.<4.0cm> 4.0 cm LVPW d(<1.2cm) 1.2 cm RV (d.<2.3cm) 3.0 cm LVPW (sytole) 1.7 cm LV diastole(<5.6CM) 4.9 cm MV E-F(>70mm/sec) cm LV systole 3.3 cm LVOT Diameter 1.8 cm MV exc.(>10mm) cm Est.ejection fraction (50-75%) % DOPPLER: LVIT cm/sec A 80.0 cm/sec E 50.0 cm/sec LA cm/sec RVSP 25.0 mmHg LVOT 115 cm/sec AOP1/2T m/s Asc. Ao 117 cm/sec RVOT 60.0 cm/sec RA cm/sec PA 95.0 cm/sec AV Gradient Peak 5.5 mmHg AV Mean 2.6 mmHg AV Area 2.5 cm MV Gradient Peak 3.4 mmHg MV Mean 1.2 mmHg MV Area cm COMMENTS: Code Official: Pratibha EID Hand Packer/Packager: 3 Dr. Mathis TAPE# PACS Pericardial Effusion N DATE OF SERVICE: 05/14/2018 FINDINGS: 1. Left ventricular chamber size is within normal limits. Left ventricular systolic function is normal. Overall ejection fraction is estimated at 55%. 2. Left atrium is upper limits of normal at 4.0 cm. Right atrium and right ventricle chamber sizes are within normal limit. 3. Valvular structures have normal structure and motion. 4. Doppler interrogation reveals trace tricuspid regurgitation. No other valvular insufficiency or stenosis. Pulmonary systolic pressure is estimated at ECHOCARDIOGRAM REPORT [id number] TATYANA RAYMOND 25 mmHg. 5. No evidence of pericardial effusion or left ventricular thrombus. TRANSINT:[id number] Voice Confirmation ID: [id number] DOCUMENT ID: [id number] SAMARA BENDER MD at 1045 CC: [id number] DICTATION DATE: 05/14/18 1516 SECONDS GRADER: 05/14/18 1755 DEP CLI 05/14/18 [place] [id number] [place] [id number]
== END | disposition home or self-care (01) ==
LOC: D.ECHO 10:18
DX: I25.10 Atherosclerotic heart disease of native coronary artery without angina pectoris (principal); I71.6 Thoracoabdominal aortic aneurysm, without rupture

== ENCOUNTER → 2018-05-16 15:25 | Outpatient (CLI) | payer MEDICARE ==
[2017-05-19 20:12] VITALS: BMI 29.7
== END | disposition home or self-care (01) ==
LOC: D.MRI 15:25
DX: M25.552 Pain in left hip (principal)

== ENCOUNTER → 2018-05-23 16:37 | Outpatient (CLI) | payer MEDICARE ==
[2017-05-19 20:12] VITALS: BMI 29.7
== END | disposition home or self-care (01) ==
LOC: D.LABREF 16:37
DX: M87.88 Other osteonecrosis, other site (principal); Z11.8 Encounter for screening for other infectious and parasitic diseases

== ENCOUNTER 2018-05-24 12:32 | Inpatient (IN) | payer MEDICARE ==
[~2018-05-24] VITALS: Ht 172.7 cm; Wt 89.4 kg
--- NOTE | ~2018-05-24 | HEMODYNAMI ---
PATIENT:TATYANA RAYMOND MEDICAL RECORD: [id number] : 55 LOCATION:[facility] ADMISSION DATE: 06/18/18 Generatedon:06/18/201815:09 Patient name: TATYANA RAYMOND Patient #: [id number] SSN: : 1955 Date of study: 06/18/2018 Page: Of Hemodynamic Procedure Report Patient Data Patient Demographics Procedure consent was obtained First Name: TATYANA Gender: Female Last Name: MANDI : 1955 [facility] Initial: OREN Age: 62 year(s) Patient #: [id number] Race: Unknown Additional ID: [id number] Contact details [address]: [address] [place] [address] State: [place] City: [place] Zip code: [address] Past Medical History Allergies Allergen Reaction Date Comments Reported Iodine 07/06/2016 Penicillins 07/06/2016 Other allergy 07/06/2016 Levaquin, Amitryptyline Other allergy 03/15/2017 PCN, Niacin, Levaquin, Elavil, Contrast. Other allergy 03/16/2017 Penicillin, Niacin, Levaquin, Elavil, Contrast Other allergy 06/18/2018 Iodinated Contrast, PCN, Amitriptyline, levofloxacin, Niacin, Morphine Admission Admission Data Admission Date: 06/18/2018 Admission Time: 7:10 Admit Source: Other Room #: D.2212 Procedure Procedure Types Cath Procedure Diagnostic Procedure LHC LHC w/Coronaries w/Grafts Sedation Charges Moderate Sedation up to 30 minutes PCI Procedure AMI/SVG/CITY EDITOR PTCA or Stent SVG-BMS/SAE Initial Procedure Description Procedure Date Procedure Date: 06/18/2018 Procedure Start Time: 14:30 Procedure End Time: 15:02 Procedure Staff Name Function Sampson Almeida MD Performing Physician Williams Gold RT Monitor Sandi Neff RT Scrub Hernán Quintana RN Nurse Procedure Data Cath Procedure Fluoroscopy Diagnostic fluoroscopy Total fluoroscopy Time: 6.9 time: 6.9 min min Diagnostic fluoroscopy Total fluoroscopy dose: dose: 1355 mGy 1355 mGy Contrast Material Contrast Material Type Amount (ml) Isovue 300 159 Entry Location Entry Primary Successful Side Size Upsize Upsize Entry Closure Succes sful Closure Location (Fr) 1 (Fr) 2 (Fr) Remarks Device Remarks Femoral Right 5 Fr 6 Fr Exoseal artery Short Estimated blood loss: 10 ml Diagnostic catheters Device Type Used For End Catheter Placement MULTIPACK JL 4.0 5Fr Procedure catheter MULTIPACK 3DRC 5Fr Procedure catheter DIAGNOSTIC AR MOD 5Fr Procedure Catheter ([id number]) MULTIPACK Pigtail 5 Fr Procedure catheter Procedure Complications No complications Procedure Medications Medication Administration Route Dosage Oxygen etCO2 Nasal cannula 2 l/min Lidocaine 2% added to field 20 Heparin Flush Bag added to field 2 bags (1000units/500ml NS) 0.9% NaCl I.V. 100 ml/hr Versed I.V. 1 mg Fentanyl I.V. 50 mcg Heparin Bolus I.V. 4000 units Integrilin (Bolus I.V. 7.9 ml 2mg/ml) Versed I.V. 1 mg Fentanyl I.V. 50 mcg Cardene I.C. 300 mcg Plavix P.O. 600 mg Hemodynamics Rest Heart Rate: 63 (bpm) Pressure Samples Time Site Value (mmHg) Purpose Heart Use Rate(bpm) 14:37 LV 120/3,33 Snapshot 68 14:37 AO 98/56(72) Pullback 67 14:37 LV 101/14,25 Pullback 67 Gradients Valve Time Site 1 Site 2 Mean SEP/DFP Peak To Heart Use (mmHg) (sec/min) Peak Rate (mmHg) (bpm) Aortic 14:37 LV AO 19 18 3 67 101/14,25 98/56(72) Calculations Valve P-P Mean Valve Index Valve Source Name Gradient Area Flow (cm2) Aortic 3 19 3 19 Snapshots Pre Cath Intra NCS Post Cath Vital Signs Time Heart Resp SPO2 etCO2 NIBP Rhythm Pain Sedation Rate (ipm) (%) (mmHg) (mmHg) Status Level (bpm) 14:19:32 64 19 94 37.9 118/77(93) NSR 0 (11) 10(A) , No pain 14:23:39 63 17 97 37.1 101/72(87) NSR 0 (11) 10(A) , No pain 14:27:43 64 17 96 29.5 102/63(89) NSR 0 (11) 10(A) , No pain 14:31:47 65 19 93 15.1 107/65(83) NSR 0 (11) 9(A) , No pain 14:35:53 66 18 94 31.8 113/67(85) NSR 0 (11) 9(A) , No pain 14:40:01 69 16 92 35.6 111/65(79) NSR 0 (11) 9(A) , No pain 14:44:11 65 17 92 35.5 105/60(81) NSR 0 (11) 9(A) , No pain 14:48:20 38 17 93 32.5 100/50(82) SB 0 (11) 9(A) , No pain 14:52:26 69 15 93 31.8 88/54(75) NSR 0 (11) 9(A) , No pain 14:56:28 66 16 93 32.5 85/54(70) NSR 0 (11) 9(A) , No pain 15:00:27 66 15 93 31.8 90/59(68) NSR 0 (11) 9(A) , No pain 15:06:22 66 15 94 28.7 88/58(69) NSR 0 (11) 10(A) , No pain Medications Time Medication Route Dose Verified Delivered Reason Notes Effectiveness by by 14:18:25 Oxygen etCO2 2 Sampson Jim used for Nasal l/min St Kai Quintana RN procedure cannula 14:18:32 Lidocaine 2% added 20ml Sampson Braden for local to vial [facility] anesthetic field MD LLANOS 14:18:39 Heparin Flush added 2 Sampson Sampson used for Bag to bags [facility] procedure (1000units/500ml field MD LLANOS NS) 14:18:47 0.9% NaCl I.V. 100 Sampson Jim Per physician ml/hr St Kai Quintana RN, MD 14:26:43 Versed I.V. 1 mg Sampson Orozcoie for sedation St Kai Quintana RN, MD 14:26:48 Fentanyl I.V. 50 Sampson Orozcoie for sedation mcg [facility] Kai Quintana RN, MD 14:32:02 Versed I.V. 1 mg Sampson Orozcoie for sedation [facility] Kai Quintana RN, MD 14:32:06 Fentanyl I.V. 50 Sampson Jim for sedation [facility] Kai Quintana RN, MD 14:42:25 Heparin Bolus I.V. 4000 Sampson Jim for verif ied units St Kai Quintana RN anticoagulation with dr MD soto 14:43:28 Integrilin I.V. 7.9 Sampson Jim for Waste d (Bolus 2mg/ml) ml St Kai Quintana RN antiplatelet 2.1 ml therapy of vial 14:48:06 Cardene I.C. 300 Sampson Braden for mcg Juan PabloKai Adler MD, MD 15:04:10 Plavix P.O. [address] Jim for mg [facility] Kai Quintana RN antiplatelet therapy Procedure Log Time Note 13:40:22 Informed consent obtained and on chart 13:40:26 Admit Source: Other 13:40:39 Diagnostic Cath status Elective 13:40:41 Hernán Quintana RN sent for patient. Start room use. 13:40:41 Time tracking: Regular hours (M-F 7:00 - 5:00) 13:40:45 Plan of Care:Hemodynamics will remain stable., Cardiac rhythm will remain stable., Comfort level will be maintained., Respiratory function will remain adequate., Patient/ family verbilizes understanding of procedure., Procedure tolerated without complication., Recovers from procedure without complications.. 13:42:23 H&P Date Dictated: 06/18/2018 Within 30 days and on chart.. 13:50:27 Patient allergic to Other allergyIodinated Contrast, PCN, Amitriptyline, levofloxacin, Niacin, Morphine 14:09:56 Patient received from Outpatients to [facility] 2 Alert and oriented. Tansferred to table in Supine position. 14:09:57 Warm blankets applied, and kathya hugger turned on for patient comfort. 14:09:57 Correct patient and procedure confirmed by team. 14:09:58 ECG and BP/O2 sat monitors applied to patient. 14:09:59 Pre-procedure instructions explained to patient. 14:09:59 Pre-op teaching completed and patient verbalized understanding. 14:10:01 Family in waiting room. 14:10:02 Patient NPO since Midnight. 14:10:04 Is the patient allergic to Iodine/contrast media? Yes. 14:10:05 Was the patient premedicated? Yes 14:18:15 Vital chart was started 14:18:25 Oxygen 2 l/min etCO2 Nasal cannula was administered by Hernán Quintana RN; used for procedure; 14:18:32 Lidocaine 2% 20ml vial added to field was administered by Sampson Almeida MD; for local anesthetic; 14:18:39 Heparin Flush Bag (1000units/500ml NS) 2 bags added to field was administered by Samspon Almeida MD; used for procedure; 14:18:47 0.9% NaCl 100 ml/hr I.V. was administered by Hernán Quintana RN; Per physician; 14:25:38 Is patient on blood thinner?No 14:25:39 Patient diabetic? No. 14:25:41 Previous problem with sedation/anesthesia? No ? 14:25:42 Snore? Yes 14:25:43 Sleep apnea? No 14:25:44 Deviated septum? No 14:25:44 Opens mouth fully? Yes 14:25:45 Sticks out tongue? Yes 14:25:46 Airway obstruction? No ? 14:25:49 Dentures? Yes out 14:25:52 Pre procedure: right dorsailis pedis pulse 2+ Normal; easily identifiable; not easily obliterated 14:25:54 Patient pain scale 0/10 ?. 14:26:02 IV patent on arrival in left antecubital with 0.9% NaCl at [facility]. 14:26:07 Lab results completed and on chart. 14:26:10 Right groin area was prepped with chlora-prep and draped in sterile fashion 14:26:10 Alarms reviewed by R. N. 14:26:11 Sharps counted by scrub and verified by R.N. 14:26:12 Use device set Femoral Dx 14:26:13 ACIST Syringe (41065) opened to sterile field. 14:26:13 Bag Decanter (2002S) opened to sterile field. 14:26:14 Medline Cath Pack ([id number]) opened to sterile field. 14:26:15 ACIST Hand Control (09508) opened to sterile field. 14:26:15 ACIST Manifold (66338) opened to sterile field. 14:26:16 Tegaderm 4 x 4 (1626W) opened to sterile field. 14:26:17 SHEATH 5FR [place] (ENO283) opened to sterile field. 14:26:18 DIAGNOSTIC WIRE .035 260cm J wire (602156) opened to sterile field. 14:: DIAGNOSTIC Multipack 5Fr catheter set (NF5204) opened to sterile field. 14:: Baseline sample Acquired. : Rhythm: sinus rhythm : Physician arrived --------ALL STOP TIME OUT------ Final Timeout: patient, procedure, and site verified with staff and physician. All members of the team are in agreement. 14:: Right groin site verified by team. 14:: Maximum allowable Isovue 300 dose 300ml. Physician notified. (300ml for normal creatinines. For patients with creatinine of 1.7 or higher multiply weight(kg) x 5 divided by creatinine.) 14:: Fire Safety Assessment: A--An alcohol-based skin anteseptic being used preoperatively., C--Open oxygen or nitrous oxide is being used., D--An ESU, laser, or fiber-optic light is being used. 14::43 Versed 1 mg I.V. was administered by Hernán Quintana RN; for sedation; 14::48 Fentanyl 50 mcg I.V. was administered by Hernán Quintana RN; for sedation; 14::55 Physical assessment completed. ASA score P 2 - A patient with mild systemic disease as per Sampson Almeida MD. 14::59 Sedation plan: IV Moderate Sedation Medication:Versed, Fentanyl 14::41 Zero performed for pressure channel P1 14::59 Procedure started. ::59 Full Disclosure recording started 14:30:02 Local anesthetic to right femoral artery with Lidocaine 2% by Sampson Almeida MD.INITIAL ACCESS ONLY 14:30:16 A 5 Fr sheath was inserted into the Right Femoral artery 14:31:16 A MULTIPACK JL 4.0 5Fr catheter was advanced over the wire and used for Procedure. 14:31:34 LCA angiography performed. 14:32:02 Versed 1 mg I.V. was administered by Hernán Quintana RN; for sedation; 14:32:06 Fentanyl 50 mcg I.V. was administered by Hernán Quintana RN; for sedation; 14:32:20 Catheter exchanged over wire. 14:32:44 A MULTIPACK 3DRC 5Fr catheter was advanced over the wire and used for Procedure. 14:32:50 RCA angiography performed. 14:33:31 SVG to Diag angiography performed. 14:35:20 Catheter exchanged over wire. 14:35:25 A DIAGNOSTIC AR MOD 5Fr Catheter ([id number]) was advanced over the wire and used for Procedure. 14:35:54 SVG to RCA angiography performed. 14:36:52 Catheter exchanged over wire. 14:36:57 A MULTIPACK Pigtail 5 Fr catheter was advanced over the wire and used for Procedure. 14:37:35 LV gram done using GACRIA 14:37:37 Injector settings: Ml/sec: 10, Volume: 20, 14:37:38 LV hemodynamics recorded. 14:37:46 EF : 55 % 14:38:14 Catheter removed. 14:40:14 SHEATH 6FR [place] (NFQ237) opened to sterile field. 14:40:32 INFLATOR Merit BasixCompak (MJ2274) opened to sterile field. 14:40:39 WHISPER 300cm guide wire ([id number]) opened to sterile field. 14:41:47 GUIDE 6FR AR 1.0 catheter (AA2QM41) opened to sterile field. 14:42:25 Heparin Bolus 4000 units I.V. was administered by Hernán Quintana RN; for anticoagulation; verified with dr soto 14:43:28 Integrilin (Bolus 2mg/ml) 7.9 ml I.V. was administered by Hernán Quintana RN; for antiplatelet therapy; Wasted 2.1 ml of vial 14:44:09 Sheath upsized to a 6 Fr Short. 14:44:23 6 Fr AR 1 guide catheter was inserted over the wire 14:47:04 WHISPER wire advanced. 14:47:41 Wire advanced across lesion. 14:48:06 Cardene 300 mcg I.C. was administered by Sampson Almeida MD; for vasodilation; 14:49:32 Inflate balloon Inflation number: 1 A EMERGE OTW 3.5 x 15 balloon ([id number]) was prepped and advanced across the Aorta Right -> Dist RCA, then inflated to 12 ROCKY for 0:10 (min:sec). 14:49:38 Inflation number: 2 The EMERGE OTW 3.5 x 15 balloon ([id number]) was reinflated across the Aorta Right -> Dist RCA, to 12 ROCKY for 0:10 (min:sec). 14:50:07 Inflation number: 3 The EMERGE OTW 3.5 x 15 balloon ([id number]) was reinflated across the Aorta Right -> Dist RCA, to 14 ROCKY for 0:10 (min:sec). 14:51:39 Balloon removed over the wire. 14:55:11 Place stent Inflation Number: 4 A INTEGRITY RX 4.0 x 30 stent ([id number]) was prepped and advanced across the Aorta Right -> Dist RCA. The stent was deployed at 12 ROCKY for 0:10 (min:sec). 14:55:45 Stent catheter was removed intact over wire. 14:58:57 Place stent Inflation Number: 5 A INTEGRITY RX 4.0 x 15 stent ([id number]) was prepped and advanced across the Aorta Right -> Dist RCA. The stent was deployed at 14 ROCKY for 0:10 (min:sec). 14:59:46 Stent catheter was removed intact over wire. 14:59:47 Wire removed. 14:59:48 Guide catheter removed. 14:59:58 EXOSEAL 6Fr (EX600) opened to sterile field. 15:00:07 Sheath removed intact; hemostasis achieved with Exoseal to the Right Femoral artery. 15:00:08 Procedure ended.(Physican Out) 15:01:10 Fluoroscopy time 06.90 minutes. 15:01:22 Flurop Dose total: 1355 15:01:22 Fluoroscopy dose: 1355 mGy 15:01:26 Contrast amount:Isovue 300 159ml. 15:01:27 Sharps counted by scrub and verified by R.N. 15:01:31 Insertion/operative site no bleeding no hematoma. 15:01:34 Post-op/insertion site Right Femoral artery dressed using a 4 x 4 and Tegaderm. 15:01:37 Post right femoral artery:stable, soft, clean and dry 15:01:38 Post Procedure Pulses reassessed and unchanged 15:01:41 Post-procedure physical assessment completed. ASA score P 2 - A patient with mild systemic disease as per Sampson Almeida MD. 15:01:42 Post procedure rhythm: unchanged. 15:01:45 Estimated blood loss: 10 ml 15:01:46 Post procedure instruction explained to patient.Patient verbalizes understanding. 15:01:46 Patient needs reinforcement of post procedure teaching. 15:02:24 Procedure type changed to Cath procedure, Diagnostic procedure, LHC, LHC w/Coronaries w/Grafts, Sedation Charges, Moderate Sedation up to 30 minutes, PCI procedure, AMI/SVG/CITY EDITOR PTCA or Stent, SVG-BMS/SAE Initial 15:02:49 Procedure and supply charges have been captured, reviewed, submitted and are correct. 15:02:51 Procedure Complication : No complications 15:02:53 Vital chart was stopped 15:02:54 See physician's report for complete and final results. 15:02:55 Report given to Pre/Post Procedure Room. 15:02:57 Patient transfered to Pre/Post Procedure Room with Stretcher. 15:02:59 Procedure ended. 15:02:59 Full Disclosure recording stopped 15:03:03 End room use (Document Last) 15:04:10 Plavix 600 mg P.O. was administered by Hernán Quintana RN; for antiplatelet therapy; Intervention Summary Intervention Notes Time ActionType Lesion and Equipment Action# Pressure Duration Attributes Used 14:49:32 Inflate Aorta Right EMERGE OTW 1 12 00:10 balloon -> Dist RCA 3.5 x 15 balloon ([id number]) 14:49:38 Reinflate Aorta Right EMERGE OTW 2 12 00:10 balloon -> Dist RCA 3.5 x 15 balloon ([id number]) 14:50:07 Reinflate Aorta Right EMERGE OTW 3 14 00:10 balloon -> Dist RCA 3.5 x 15 balloon ([id number]) 14:55:11 Place stent Aorta Right INTEGRITY RX 4 12 00:10 -> Dist RCA 4.0 x 30 stent ([id number]) 14:58:57 Place stent Aorta Right INTEGRITY RX 5 14 00:10 -> Dist RCA 4.0 x 15 stent ([id number]) Device Usage Item Name Manufacture Quantity Catalog Number Hospital Part Current Min imal Lot# / Charge Number Stock Stock Serial# Code ACIST Acist 1 41601 [id number] 021834 144458 20 Syringe QReca! (20059) ITA Software Inc Bag Decanter Microtek 1 845235 23614 025392 5 () QReca! Inc. Medline Cath Medline 1 [id number] 027191 98969 179845 5 Pack ([id number]) ACIST Hand Acist 1 40633 372930 324119 826512 5 Control Medical (57561) Systems Inc ACIST Acist 1 43653 332847 066844 987901 5 Manifold Medical (95395) Systems Inc Tegaderm 4 x 3M 1 1626W 074193 480255 251440 5 4 (1626W) SHEATH 5FR Terumo 1 HKX993 470751 384824 441167 5 [place] (XKA660) DIAGNOSTIC St Dru 1 334796 440109 894035 314849 30 WIRE .035 260cm J wire (132715) DIAGNOSTIC Cardinal 1 RF6955 205491 63834 337469 30 Multipack Health 5Fr catheter set (YI9405) MULTIPACK JL Cardinal 1 155370 5 4.0 5Fr Health catheter MULTIPACK Cardinal 1 498156 5 3DRC 5Fr Health catheter DIAGNOSTIC Cardinal 1 [id number] 449314 124116 108845 15 AR MOD 5Fr Health Catheter (629303M) MULTIPACK Cardinal 1 247138 5 Pigtail 5 Fr Health catheter SHEATH 6FR Terumo 1 BVB029 620339 717321 353398 40 [place] (OYX943) INFLATOR Merit 1 WZ2036 107092 478832 170778 15 [facility] BasixCompak (NH1146) WHISPER Matute 1 [id number] 819685 988769 797968 5 300cm guide Vascular wire (7074735SR) GUIDE 6FR AR Medtronic 1 [id number] 397091 71018 154938 1 1.0 catheter (BO6GR61) EMERGE OTW Marcellus 1 [id number] 155250 933039 011210 5 [id number] 3.5 x 15 Scientific balloon ([id number]) INTEGRITY RX Medtronic 1 [id number] 022445 913740 313777 5 [id number] 4.0 x 30 stent ([id number]) INTEGRITY RX Medtronic 1 [id number] 592173 801620 716035 5 [id number] 4.0 x 15 stent ([id number]) EXOSEAL 6Fr Cardinal 1 EX600 175349 710002 289855 10 (EX600) Health Signature Audit [place] Stage Time Signature Unsigned Intra-Procedure 06/18/2018 Williams Gold 3:09:04 PM RT(R) Signatures Monitor : Williams Gold RT Signature : Date : Time : [facility] [address] [place] [address]
[~2018-05-24 12:32] MED LIST changes: +RANEXA1000 MG PO; -RANEXA500 MG PO
[2018-06-12] MEDS ORDERED: SINEQUAN100 MG PO (13:27)
[2018-06-12] MEDS ORDERED: HYDROXYZINE PA100 MG PO (13:27)
[2018-06-13 11:58] LABS: BASOPHILS 0.2 % (0-2); EOSINOPHILS 1.2 % (0-7); HEMATOCRIT 43.1 % (36.0-48.0); HEMOGLOBIN 14.6 g/dL (12-16); IMMATURE GRANULOCYTES 0.2 % (0-5); LYMPHOCYTES 44.4 % (15-50); MCH 31.3 pg (26.0-34.0); MCHC 33.9 g/dL (31.0-37.0); MCV 92.5 fL (80.0-100.0); MEAN PLATELET VOLUME 9.1 fL (7.4-10.4); MONOCYTES 6.8 % (2-11); NEUTROPHILS 47.2 % (40-80); RBC 4.66 10x6/uL (4.00-5.40); RDW 13.9 % (11.5-14.5); WBC 10.7 10x3/uL (4.8-10.8)
[2018-06-13 12:02] LABS: PLATELET COUNT 248 10x3/uL (130-400)
[2018-06-13 12:10] LABS: APTT 26.4 SECONDS (22.8-39.4); INR 0.95 (0.85-1.17); PROTIME 12.2 SECONDS (11.6-15.0)
[2018-06-13 12:35] LABS: APPEARANCE HAZY (CLEAR); BILIRUBIN NEGATIVE (NEGATIVE); COLOR YELLOW (YELLOW); GLUCOSE NEGATIVE (NEGATIVE); KETONE NEGATIVE (NEGATIVE); NITRITE NEGATIVE (NEGATIVE); PROTEIN NEGATIVE (NEGATIVE); SPECIFIC GRAVITY 1.015 (1.005-1.020); UROBILINOGEN NORMAL (NORMAL)
[2018-06-13 12:36] LABS: EPITHELIAL CELLS 0-5 /hpf (0-5); MUCUS <1+ /lpf (NONE SEEN); RED CELLS - URINE 0-5 /hpf (0-5)
[2018-06-13 12:37] LABS: BACTERIA FEW /hpf (NONE SEEN)
[2018-06-13 12:39] LABS: CALC OSMOLALITY 281 mosm/kg (275-300); CALCIUM 9.1 mg/dL (8.5-10.1); CHLORIDE - SERUM 106 mmol/L (98-107); CREATININE - SERUM 0.7 mg/dL (0.6-1.3); POTASSIUM - SERUM 4.5 mmol/L (3.5-5.1); SODIUM 141 mmol/L (136-145); UREA NITROGEN 12 mg/dL (7-18); eGFR NON AFRICAN AMERICAN 90 mL/min (90-120)
[2018-06-13 12:41] LABS: GLUCOSE 111 mg/dL (74-106)
[2018-06-18] MEDS ORDERED: BYSTOLIC10 MG PO (09:08)
[2018-06-18] MEDS ORDERED: COZAAR100 MG PO (09:09)
[2018-06-18] MEDS ORDERED: TRAZODONE HCL150 MG (09:09)
[2018-06-18 09:26] VITALS: BP 112/52; Ht 172.7 cm; Wt 89.4 kg
--- NOTE | 2018-06-18 11:45 | NUR ---
1130 PT BACK TO ROOM FROM HOLDING AREA. DR. REBOLLEDO NOTIFIED THAT SURGERY IS ON HOLD AND HE IS TO COME EVALUATE PT. PT REPORTED A HX OF CP REQUIRING NTG.
--- NOTE | 2018-06-18 14:09 | NUR ---
1225 B/P 118/74 HR-64 R-16 O2SAT 98% PT RESTING. DENIES CP BUT STATES SHE HAS "AN ACHEY FEELING" 1310 PT TOLD MARGRET HOOPER RN THAT SHE WAS HURTING BAD. MARGRET HOOPER RN CALLED MD FOR PAIN MEDICATION. 1342 PT STATES HER PAIN LEVEL IS A 9. STATES THE PAIN IS IN HER HIP AND BACK. DILAUDID 2MG GIVEN IV SLOWLY OVER 10 MINUTES. VS PRIOR TO DILAUDID: B/P 106/58 HR 63 R 16 O2 SAT 94% 1350 NURSES FROM [facility] HERE TO GET PATIENT. STATES THAT DR. WADDELL HAS ORDERED SOLU-MEDROL TO BE GIVEN PRIOR TO CATH SINCE PATIENT HAS AN IODINE ALLERGY. 1355 SOLU-MEDROL 125 MG IV GIVEN. UNABLE TO GET COMPUTER TO SCAN DILAUDID AND SOLU-MEDROL. 1407 PT TRANSFERRED VIA STRETCHER TO [facility]. PT AWAKE AND TALKING. STATES TAHT HER PAIN LEVEL IS STILL A 9. NO RELIEF FROM DILAUDID OF YET.
--- NOTE | 2018-06-18 14:19 | NUR ---
1407 ADDENDUM: VS AT 1405 B/P 112/75 HR 62 R 16 O2 SAT 94%
[2018-06-18 15:15] VITALS: BP 98/60
--- NOTE | 2018-06-18 15:30 | NUR ---
PT RECEIVED VIA STRETCHER FROM [facility]ES SOLUTIONS SPECIALIST FOR RECOVERY. PT SLEEPING, BUT AROUSES TO VERBAL STIMULI. R GROIN DRESSING CDI, NO BLEEDING OR HEMATOMA NOTED. PEDAL PULSES PALAPBLE. HR NSR RATE 67, BP 85/49 THIS IS WHAT IT HAS BEEN SINCE RECEIVING IC CARDENE IN [facility]. WILL CONTINUE TO MONITOR. 02 SAT 93 PLACED ON O2 AT 2L/NC IV PATENT INFUSING KVO. PT AND FAMILY INSTRUCTED ON KEEPING HEAD ON PILLOW AND LEG STRAIGHT, BOTH VERBALIZED UNDERSTANDING. CALL LIGHT IN REACH
--- NOTE | 2018-06-18 15:33 | NUR ---
PT RECIEVED TO FLOOR.
--- NOTE | 2018-06-18 15:45 | NUR ---
PT STILL SLEEPING, RESTING COMFORTABLY. R GROIN DRESSING CDI NO BLEEDING OR SWELLING NOTED. BP 98/64, HR NSR RATE 69 AND O2 SAT 94%. FAMILY AT BEDSIDE, CALL LIGHT IN REACH
--- NOTE | 2018-06-18 16:15 | NUR ---
PT STILL SLEEPING, VSS. R GROIN SOFT NO BLEEDING OR HEMATOMA NOTED. CALL LIGHT IN REACH, SISTER AT BEDSIDE
--- NOTE | 2018-06-18 16:45 | NUR ---
PT RESTING COMFORTABLY, R GROIN SOFT, DRESSING CDI NO BLEEDING OR SWELLING NOTED. CALL LIGHT IN REACH.
--- NOTE | 2018-06-18 17:15 | NUR ---
PT RESTING W/O COMPLAINTS. R GROIN SOFT NO BLEEDING OR SWELLING NOTED. PEDAL PULSES PALPABLE. BP 116/70, HR RATE 74, O2 SAT 94 ON O2 2L/NC. CALL LIGHT IN REACH, SISTER AT BEDSIDE.
--- NOTE | 2018-06-18 17:43 | NUR ---
PT MORE AWAKE WANTING TO SIT UP, EXPLAINED IT WASN'T TIME YET. SIPS OF WATER GIVEN PER REQUEST. R GROIN DRESSING CDI NO BLEEDING OR SWELLING NOTED. PEDAL PULSES PALPABLE. CALL LIGHT IN REACH
--- NOTE | 2018-06-18 18:20 | NUR ---
HOB ELEVATED SLIGHTLY, O2 REMOVED. VSS. R LEG WARM AND PINK, GROIN DRESSING CDI NO BLEEDING OR SWELLING NOTED. OFFERED SANDWICH AND SOMETHING OTHER THAN WATER TO DRINK BUT PT REFUSES AT THIS TIME. SISTER AT BEDSIDE, CALL LIGHT IN REACH
--- NOTE | 2018-06-18 18:45 | NUR ---
SANDWICH AND MILK GIVEN PER REQUEST.
--- NOTE | 2018-06-18 19:00 | NUR ---
DISCHARGE INSTRUCTIONS REVIEWED W PT AND SISTER, BOTH VERBALIZED UNDERSTANDING.
--- NOTE | 2018-06-18 19:14 | NUR ---
IV REMOVED W CATH INTACT PER Janelle HODGE RN. MONITORS REMOVED. PT UP TO DRESS FOR DISCHARGE.
--- NOTE | 2018-06-18 19:29 | NUR ---
PT AMBULATED TO BR, VOIDING W/O DIFFICULITY. PT DISCHARGED VIA WC TO PRIVATE VEHICLE W ALL BELONGINGS.
--- NOTE | 2018-06-20 14:40 | OP ---
PATIENT NAME: TATYANA RAYMOND MEDICAL RECORD: [id number] :55 LOCATION:[facility] ADMISSION DATE:06/18/18 SURGEON: MICHAEL WADDELL MD DATE OF OPERATION: 06/18/2018 PROCEDURE: Left heart catheterization, selective coronary angiography plus vein graft plus PACKER FUSER and stenting to the saphenous vein graft to the right. CATHETERS: A 5-Frisian sheath, 5/4 left and right Arlette, 5/4 pig. The procedure was well tolerated. We proceeded with PACKER FUSER and stenting to the saphenous vein graft to the right after procedure was finished. FINDINGS: Left ventriculography in 30-degree GARCIA view: Actually, wall motion appears normal at this point. EF is 50%. CORONARY ANATOMY: LEFT MAIN: Area of previously placed stent is widely patent. No progression of [place] disease. CIRCUMFLEX: Circumflex is free of disease. 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 SAPHENOUS VEIN GRAFT TO DIAGONAL: Widely patent throughout its course. SAPHENOUS VEIN GRAFT TO RIGHT: Anastomotic site has about 80% stenosis with TIFFANIE flow 1-2 distally. PLAN: Intervention momentarily. DESCRIPTION OF PROCEDURE: A 5-Frisian sheath was exchanged for a 6-Frisian sheath. AR1 guiding catheter provided good guide catheter support followed by 300-cm Whisper wire placed across distally down the portion of this vessel. Pre-deployment balloon was 3.5 x 15 mm Addison. Stents deployed were 3.5 x 28 and 3.5 x 15 Integrity nondrug-eluting stents up to 14 atmospheres. Final angiography shows excellent resolution of original stenosis with improvement in flow distally. She was given IC Cardene as well as usual heparin and Integrilin. TRANSINT:[id number] Voice Confirmation ID: [id number] DOCUMENT ID: [id number] MICHAEL WADDELL MD at 1440 CC: [id number] DICTATION DATE: 06/18/18 1509 TRACTOR TRAILER OPERATOR: 06/18/18 1831 DIS IN 06/18/18 [facility] [address] [place] [address]
== END 2018-06-18 19:31 | disposition home or self-care (01) | DRG 249 ==
LOC: D.MS 06-18 07:10 → D.SDCHOLD 06-18 07:10 → D.CLR 06-18 07:10 → D.SDCHOLD 06-18 09:15 → D.MS 06-18 09:44 → D.SDCHOLD 06-18 10:00 → D.CLR 06-18 15:30
PROVIDERS: Internal Medicine Interventional Cardiology; ADMIT Orthopaedic Surgery; ATTEND Internal Medicine Cardiovascular Disease
PROC: B2111ZZ Fluoroscopy of Multiple Coronary Arteries using Low Osmolar Contrast (ICD-10-PCS; 2018-06-18)
PROC: B2131ZZ Fluoroscopy of Multiple Coronary Artery Bypass Grafts using Low Osmolar Contrast (ICD-10-PCS; 2018-06-18)
PROC: B2151ZZ Fluoroscopy of Left Heart using Low Osmolar Contrast (ICD-10-PCS; 2018-06-18)
PROC: 02703EZ Dilation of Coronary Artery, One Artery with Two Intraluminal Devices, Percutaneous Approach (ICD-10-PCS; principal; 2018-06-18 13:40)
PROC: 4A023N7 Measurement of Cardiac Sampling and Pressure, Left Heart, Percutaneous Approach (ICD-10-PCS; 2018-06-18 13:40)
DX: I25.710 Atherosclerosis of autologous vein coronary artery bypass graft(s) with unstable angina pectoris (principal); I10 Essential (primary) hypertension; I48.91 Unspecified atrial fibrillation; K21.9 Gastro-esophageal reflux disease without esophagitis; K59.00 Constipation, unspecified; F32.9 Major depressive disorder, single episode, unspecified; F41.9 Anxiety disorder, unspecified; I42.9 Cardiomyopathy, unspecified; E78.5 Hyperlipidemia, unspecified

== ENCOUNTER 2018-06-13 08:00 | Outpatient (CLI) | payer MEDICARE ==
[~2018-06-13 08:00] MED LIST changes: +SINEQUAN100 MG PO
== END 2018-06-13 23:59 | disposition home or self-care (01) ==
LOC: D.OPS 08:00
PROVIDERS: ATTEND Orthopaedic Surgery
DX: M87.9 Osteonecrosis, unspecified (principal); Z53.9 Procedure and treatment not carried out, unspecified reason

== ENCOUNTER → 2018-09-05 11:34 | Outpatient (CLI) | payer MEDICARE ==
[~2018-09-05 11:34] MED LIST changes: +BYSTOLIC10 MG PO; +COZAAR100 MG PO; +TRAZODONE HCL150 MG
== END | disposition home or self-care (01) ==
LOC: D.CT 09-03 08:30
PROVIDERS: ATTEND Internal Medicine Pulmonary Disease
DX: M87.88 Other osteonecrosis, other site (principal); Z11.8 Encounter for screening for other infectious and parasitic diseases

== ENCOUNTER 2018-09-05 15:46 | Inpatient (IN) | payer MEDICARE ==
[~2018-09-05] VITALS: Ht 172.7 cm; Wt 90.9 kg
[2018-10-10] MEDS ORDERED: DULERA 200 MCG8.8 GM INH (11:17)
[2018-10-10] MEDS ORDERED: FLUTICASONE PRO16 GM NASAL (11:17)
[2018-10-10] MEDS ORDERED: COMBIVENT RESPIM4 GM INH (11:18)
[2018-10-10 12:19] LABS: BASOPHILS 0.1 % (0-2); EOSINOPHILS 1.4 % (0-7); HEMATOCRIT 42.3 % (36.0-48.0); HEMOGLOBIN 14.6 g/dL (12-16); IMMATURE GRANULOCYTES 0.1 % (0-5); LYMPHOCYTES 34.5 % (15-50); MCH 32.7 pg (26.0-34.0); MCHC 34.5 g/dL (31.0-37.0); MCV 94.6 fL (80.0-100.0); MEAN PLATELET VOLUME 8.8 fL (7.4-10.4); MONOCYTES 6.3 % (2-11); NEUTROPHILS 57.6 % (40-80); PLATELET COUNT 266 10x3/uL (130-400); RBC 4.47 10x6/uL (4.00-5.40); RDW 14.2 % (11.5-14.5); WBC 10.1 10x3/uL (4.8-10.8)
[2018-10-10 12:27] LABS: ANION GAP 14.9 mmol/L (8-16); CALCIUM 9.4 mg/dL (8.5-10.1); CARBON DIOXIDE 23.6 mmol/L (21.0-32.0); CREATININE - SERUM 0.9 mg/dL (0.6-1.3); POTASSIUM - SERUM 3.5 mmol/L (3.5-5.1)
[2018-10-10 12:28] LABS: APTT 32.9 SECONDS (22.8-39.4); INR 1.05 (0.85-1.17); PROTIME 13.2 SECONDS (11.6-15.0)
[2018-10-10 12:54] LABS: APPEARANCE CLEAR (CLEAR); COLOR YELLOW (YELLOW); GLUCOSE NEGATIVE (NEGATIVE); NITRITE NEGATIVE (NEGATIVE); PROTEIN NEGATIVE (NEGATIVE); SPECIFIC GRAVITY 1.025 (1.005-1.020)
[2018-10-10 12:55] LABS: BILIRUBIN NEGATIVE (NEGATIVE); KETONE NEGATIVE (NEGATIVE); UROBILINOGEN NORMAL (NORMAL)
[2018-10-10 13:07] LABS: BACTERIA FEW /hpf (NONE SEEN); EPITHELIAL CELLS 0-5 /hpf (0-5); RED CELLS - URINE NONE SEEN /hpf (0-5); WHITE CELLS - URINE 0-5 /hpf (0-5)
[2018-10-15 06:59] VITALS: BP 146/93; BMI 30.4
--- NOTE | 2018-10-15 09:19 | NUR ---
0848- [facility] ALCOHOL PREP PRIOR TO CHLORAPREP LEFT HIP TO FOOT.
[2018-10-15 11:46] VITALS: BP 112/74; Ht 172.7 cm; Wt 90.9 kg
[2018-10-15 12:02] VITALS: BP 112/74
--- NOTE | 2018-10-15 22:00 | NUR ---
PT SITTING UP ON SIDE OF BED. INFORMED PT TO LAY BACK AND WAIT FOR PT IN a.m.. PT STATES SHE CAN GET UP BECAUSE SHE'S DONE THIS BEFORE. BED ALARM IS ON AND FUNCTIONING. BED IS IN LOW POSITION. CL IN REACH. WILL MONITOR CLOSELY.
[2018-10-15 22:06] VITALS: BP 121/66
[2018-10-16 00:53] VITALS: BP 105/86
--- NOTE | 2018-10-16 04:43 | NUR ---
I have reviewed this patient and I concur with the Shift Assessment completed by the Licensed Practical Nurse today this shift.
[2018-10-16 04:45] VITALS: BP 120/74
[2018-10-16 06:58] LABS: HEMATOCRIT 34.2 % (36.0-48.0); HEMOGLOBIN 11.7 g/dL (12-16); MCH 31.9 pg (26.0-34.0); MCHC 34.2 g/dL (31.0-37.0); MCV 93.2 fL (80.0-100.0); MEAN PLATELET VOLUME 9.3 fL (7.4-10.4); RBC 3.67 10x6/uL (4.00-5.40); RDW 13.5 % (11.5-14.5); WBC 10.2 10x3/uL (4.8-10.8)
--- NOTE | 2018-10-16 08:27 | NUR ---
PT RESTING IN BED VOMITING PALE COLORED EMESIS. VOMITING MULTIPLE TIMES. ZOFRAN ADMINISTERED PER MD ORDERS.
[2018-10-16 09:08] VITALS: BP 111/71
--- NOTE | 2018-10-16 10:21 | NUR ---
PT CONTINUES TO HAVE VOMITING, VOICES "THAT ZOFRAN DIDNT DO ANYTHING FOR ME." DISCUSSED PRESCRIBED MEDICATIONS, PT REFUSES AM MEDS AT THIS TIME, BUT DID AGREE TO TAKING ELIQUIS AFTER ADMINISTRATION OF PHENERGAN.
--- NOTE | 2018-10-16 11:00 | NUR ---
PT REPORTS NAUSEA SUBSIDED AT THIS TIME. "AND I AM FEELING SOME BETTER"
[2018-10-16 13:28] VITALS: BP 139/74
--- NOTE | 2018-10-16 15:01 | MORECARE ---
CASE MANAGEMENT DISCHARGE SUMMARY PATIENT: TATYANA RAYMOND UNIT: [id number] ADM DATE: 10/15/18 AGE: 62 : 55 SEX: F ROOM/BED: D.2210 AUTHOR: KANWAL GALICIA PHYSICIAN: REFERRING PHYSICIAN: MARIE MALIK MD DATE OF SERVICE: 10/16/18 Discharge Plan Patient Name: TATYANA RAYMOND Facility: [facility]:[place] : 1955 Planned Disposition: Home or Self Care Anticipated Discharge Date: Discharge Date: Expected LOS: Initial Reviewer: [email or web address] Initial Review Date: 10/15/2018 Generated: 10/16/18 4:01 pm Comments DCP- Discharge Planning Updated by [email or web address]: Martha Rogers on 10/16/18 1:[address] Patient Name: TATYANA RAYMOND Admission Status: Elective Accout number: [id number] Admission Date: 10-15-2018 : 1955 Admission Diagnosis: Attending: MARIE MALIK Current LOS: 1 Anticipated DC Date: Planned Disposition: Home or Self Care Primary Insurance: MEDICARE A & B Discharge Planning Comments: CM met with patient to complete initial dc planning assessment. CM educated patient on the CM role and verbal consent given by patient to complete assessment. Patient lives at home with her sister and mother where she is independent with her care. At discharge patient plans to return home and feels this is a safe discharge. CM discussed availability of home health, rehab services, and medical equipment. She will do her OP PT at [facility]' PT I have made her appointment for MondaySeptember 19 1:30, I spoke with Alyssa. Patient has BSC, Walker x 2 and crutches at home. Patient denied known discharge needs at this time. Patient's sister will come pick her up. CM will continue to follow and will assist as needed with dc plans/needs. Credit Collections Analyst: Martha Rogers DCPIA - Discharge Planning Initial Assessment Updated by [email or web address]: Martha Rogers on 10/16/18 2:57 pm * Is the patient Alert and Oriented? Yes * How many steps to enter\exit or inside your home? * PCP MIL[facility] * Pharm[facility] * Preadmission Environment Home with Family * ADLs Independent * Equipment Bedside Commode Crutch Rolling Walker * List name and contact numbers for known caregivers / representatives who currently or will assist patient after discharge: SUYAPA RAYMOND * Verbal permission to speak to the caregivers and representatives has been obtained from the patient. N/A * Community resources currently utilized None * Additional services required to return to the preadmission environment? Yes * Can the patient safely return to the preadmission environment? Yes * Has this patient been hospitalized within the prior 30 days at any hospital? No External Providers External Provider: [facility]co Pe[facility] PT Next Contact Date: Service Request Date: Service Type: Resolution: Reviewer: Comments: Patient Name: TATYANA RAYMOND Page [phone] at 1501 All edits/amendments must be made on the electronic document DICTATION DATE: 10/16/181499 FLIGHT ENGINEER INSPECTOR: MARCIE 10/16/181499 RPT#: [id number] DC DATE: STATUS: ADM IN [facility] [address] [place] [address] END OF REPORT
[2018-10-16] MEDS ORDERED: ELIQUIS2.5 MG PO (15:34)
[2018-10-16] MEDS ORDERED: HYDROCODON-ACE1 EA10 PO (15:35)
[2018-10-16] MEDS ORDERED: VALIUM5 MG PO (15:36)
== END 2018-10-16 16:52 | disposition home or self-care (01) | DRG 470 ==
LOC: D.SDCHOLD 10-10 10:00 → D.MS 10-15 06:00 → D.SDCHOLD 10-15 07:30 → D.MS 10-15 11:41
PROVIDERS: ADMIT Orthopaedic Surgery; ATTEND Orthopaedic Surgery
PROC: 0SRB0JZ Replacement of Left Hip Joint with Synthetic Substitute, Open Approach (ICD-10-PCS; principal; 2018-10-15 08:00)
DX: M87.852 Other osteonecrosis, left femur (principal); I10 Essential (primary) hypertension; I25.10 Atherosclerotic heart disease of native coronary artery without angina pectoris; I48.91 Unspecified atrial fibrillation; J44.9 Chronic obstructive pulmonary disease, unspecified

== ENCOUNTER 2018-11-05 09:11 | Emergency (ER) | payer MEDICARE ==
[~2018-11-05] VITALS: Ht 172.7 cm; Wt 92.7 kg
[~2018-11-05 09:11] MED LIST changes: +COMBIVENT RESPIM4 GM INH; +DULERA 200 MCG8.8 GM INH; +FLUTICASONE PRO16 GM NASAL; +HYDROCODON-ACE1 EA10 PO; +VALIUM5 MG PO
[2018-11-05 09:12] VITALS: Ht 172.7 cm; Wt 92.7 kg
[2018-11-05 10:48] VITALS: BP 119/73
== END 2018-11-05 10:50 | disposition home or self-care (01) ==
LOC: D.ER 09:11
DX: M79.18 Myalgia, other site (principal); M25.552 Pain in left hip; S00.03XA Contusion of scalp, initial encounter; W18.30XA Fall on same level, unspecified, initial encounter; Y93.89 Activity, other specified; Y92.89 Other specified places as the place of occurrence of the external cause

== ENCOUNTER → 2018-11-29 11:11 | Outpatient (CLI) | payer MEDICARE, MEDICAID ==
[2018-11-05 09:12] VITALS: BMI 31.0
--- NOTE | 2018-12-04 14:28 | EC ---
PATIENT:TATYANA RAYMOND DATE OF SERVICE: 11/29/18 SEX: F MEDICAL RECORD: [id number] DATE OF : 55 LOCATION:D.[facility] AGE OF PATIENT: 63 ADMISSION DATE: 11/29/18 REFERRING PHYSICIAN: INTERPRETING PHYSICIAN: MICHAEL WADDELL MD ECHOCARDIOGRAM REPORT ECHO CHARGES 4 ECHO COMPLETE Date: 11/29/18 CLINICAL DIAGNOSIS: CARDIOMYOPATHY, MITRAL/TRICUSPID REGURG ECHOCARDIOGRAPHIC MEASUREMENTS (adult normal given) AC root (d.<3.7cm) 3.4 cm LV Septum d (<1.2 cm> 1.3 cm Valve Excursion 1.6 cm LV Septum (systole) 1.5 cm Left Atria (s.<4.0cm> 3.8 cm LVPW d(<1.2cm) 1.7 cm RV (d.<2.3cm) 3.7 cm LVPW (sytole) 1.9 cm LV diastole(<5.6CM) 5.0 cm MV E-F(>70mm/sec) cm LV systole 3.3 cm LVOT Diameter 1.8 cm MV exc.(>10mm) 1.4 cm Est.ejection fraction (50-75%) % DOPPLER: LVIT cm/sec A 66.0 cm/sec E 64.0 cm/sec LA cm/sec RVSP 19 mmHg LVOT 103 cm/sec AOP1/2T m/s Asc. Ao 120 cm/sec RVOT 85 cm/sec RA cm/sec PA 124 cm/sec AV Gradient Peak 5.79 mmHg AV Mean 3.18 mmHg AV Area 2.3 cm MV Gradient Peak 2.92 mmHg MV Mean 1.36 mmHg MV Area cm COMMENTS: Mattress Filling Machine Tender: Lance MORENO Money Position Officer: 3 Dr. Mathis TAPE# PACS Pericardial Effusion N DATE OF SERVICE: 11/29/2018 Adequate 2-D echo, color-flow and spectral Doppler, and M-mode. Mild LVH. LV internal dimension is normal. Wall motion is normal. EF is greater than or equal 55%. Aortic valve is tricuspid. No evidence of stenosis by Doppler interrogation. Left atrium is normal at 3.8 cm. Mitral valve shows no prolapse. Trace MR. Right-sided chambers are grossly normal. Trace TR. TRANSINT:[id number] Voice Confirmation ID: [id number] DOCUMENT ID: [id number] ECHOCARDIOGRAM REPORT [id number] TATYANA RAYMOND GREGORY A MD at 1428 CC: [id number] DICTATION DATE: 11/29/18 162 DIRECTOR MOBILE: 11/29/182 DEP CLI 11/29/18 [place] [id number] [place] [id number]
== END | disposition home or self-care (01) ==
LOC: D.HCCARDIO 10:30
PROVIDERS: ATTEND Internal Medicine Interventional Cardiology
DX: I42.9 Cardiomyopathy, unspecified (principal)

== ENCOUNTER 2019-08-19 13:00 | Day surgery (SDC) | payer MEDICARE, MEDICAID ==
[~2019-08-19] VITALS: Ht 172.7 cm; Wt 90.9 kg
[2019-08-19 13:20] LABS: HEMATOCRIT 44.5 % (36.0-48.0); HEMOGLOBIN 14.8 g/dL (12-16); MCH 30.9 pg (26.0-34.0); MCHC 33.3 g/dL (31.0-37.0); MCV 92.9 fL (80.0-100.0); MEAN PLATELET VOLUME 8.6 fL (7.4-10.4); RBC 4.79 10x6/uL (4.00-5.40); RDW 13.8 % (11.5-14.5)
[2019-08-19 13:33] LABS: ANION GAP 14.6 mmol/L (8-16); APTT 24.8 SECONDS (22.8-39.4); CALCIUM 9.9 mg/dL (8.5-10.1); CARBON DIOXIDE 22.2 mmol/L (21.0-32.0); INR 0.92 (0.85-1.17); POTASSIUM - SERUM 3.8 mmol/L (3.5-5.1); PROTIME 12.4 SECONDS (11.6-15.0)
[2019-08-19 13:50] VITALS: BP 121/83; Ht 172.7 cm; Wt 90.9 kg
[2019-08-19] MEDS ORDERED: PLAVIX75 MG PO (13:58)
--- NOTE | 2019-08-19 15:10 | NUR ---
PATIENT AMBULATING AROUND IN ROOM WITHOUT DIZZINESS OR UNSTEADINESS, DR MEDRANO IN TO SEE PATIENT. DISCHARGE INSTRUCTIONS REVIEWED WITH PATIENT
--- NOTE | 2019-08-21 09:52 | OP ---
PATIENT NAME: TATYANA RAYMOND MEDICAL RECORD: [id number] :55 LOCATION:[facility] ADMISSION DATE: SURGEON: ROSENDA MEDRANO DO DATE OF OPERATION: 08/19/2019 PROCEDURE: EGD with biopsies and balloon dilation. INDICATIONS FOR PROCEDURE: Dysphagia, heartburn, generalized abdominal pain. SCOPE: Olympus video gastroscope. MEDICATIONS: Propofol 350 mg IV per anesthesia. ESTIMATED BLOOD LOSS: Minimal. COMPLICATIONS: None. FINDINGS: Informed consent was given. The patient was made comfortable with the above medication. After reaching an adequate level of sedation by slow IV push, the patient was placed on her left side. The endoscope was advanced under direct visualization through the mouth to the second portion of the duodenum. The upper, middle, and lower thirds of the esophagus appeared normal. Cold forceps, biopsies were taken randomly from the middle third of the esophagus to rule out the presence of eosinophils. At the GE junction, there was some mild esophageal stenosis and some mild reflux changes consistent with LA class A reflux-induced esophagitis. A CRE dilating balloon was used to dilate the site up to 18 mm maximum diameter successfully. The endoscope was advanced beyond the GE junction into the stomach and retroflexed to view the cardia, where a very small sliding hiatal hernia was present. There were no associated ulcerations or abnormalities with this hernia. Throughout the body and antrum of the stomach, there were changes of mild gastritis consisting of granularity and erythema. Cold forceps biopsies were taken from the antrum and incisura to submit for histopathology and to rule out the presence of H. pylori. The endoscope was advanced beyond the pylorus into the duodenum, which appeared normal to the second portion. The endoscope was then withdrawn from the patient. The patient tolerated the procedure well and there were no complications. IMPRESSION: 1. LA class A reflux-induced esophagitis. 2. Small sliding hiatal hernia. 3. Esophageal stenosis status post dilation to 18 mm. 4. Gastritis. PLAN AND RECOMMENDATIONS: 1. Discharge home when recovery parameters are met. 2. Follow up biopsy specimen results. 3. GERD diet and reflux precautions. 4. Continue Nexium 40 mg daily or equivalent PPI in the morning. 5. Add Pepcid 20 mg p.o. at bedtime. 6. I will set the patient up for a modified barium swallow with speech therapy regarding her symptoms of oropharyngeal dysphagia, which improved with head position changes. 7. Follow up in GI clinic in 4-6 weeks. OPERATIVE REPORT [id number] TATYANA RAYMOND TRANSINT:[id number] Voice Confirmation ID: [id number] DOCUMENT ID: [id number] ROSENDA MEDRANO DO at 0952 CC: [id number] DICTATION DATE: 08/19/19 1435 PLAQUE MAKER: 08/19/192100 [facility] 08/19/19 [place] [id number] [place] [address]
== END 2019-08-19 15:13 | disposition home or self-care (01) ==
LOC: D.OPS 13:00
PROVIDERS: Anesthesiology; ATTEND Internal Medicine Gastroenterology
DX: R13.10 Dysphagia, unspecified (principal); R12 Heartburn; R10.9 Unspecified abdominal pain; K21.0 Gastro-esophageal reflux disease with esophagitis; K44.9 Diaphragmatic hernia without obstruction or gangrene; K22.2 Esophageal obstruction; J44.9 Chronic obstructive pulmonary disease, unspecified; E11.9 Type 2 diabetes mellitus without complications; K92.1 Melena; K59.09 Other constipation

== ENCOUNTER 2019-09-11 14:18 | Observation (INO) | payer MEDICARE ==
[~2019-09-11] VITALS: Ht 172.7 cm; Wt 90.7 kg
[2019-09-11 15:00] LABS: CALC OSMOLALITY 282 mosm/kg (275-300); CALCIUM 9.6 mg/dL (8.5-10.1); CARBON DIOXIDE 25.7 mmol/L (21.0-32.0); CHLORIDE - SERUM 104 mmol/L (98-107); CREATININE - SERUM 1.2 mg/dL (0.6-1.3); GLUCOSE 191 mg/dL (74-106); POTASSIUM - SERUM 3.4 mmol/L (3.5-5.1); SODIUM 139 mmol/L (136-145); UREA NITROGEN 12 mg/dL (7-18); eGFR NON AFRICAN AMERICAN 48 mL/min (90-120)
[2019-09-11 15:16] LABS: BASOPHILS 0.2 % (0-2); EOSINOPHILS 1.1 % (0-7); HEMATOCRIT 42.8 % (36.0-48.0); HEMOGLOBIN 14.3 g/dL (12-16); IMMATURE GRANULOCYTES 0.2 % (0-5); LYMPHOCYTES 35.4 % (15-50); MCH 30.9 pg (26.0-34.0); MCHC 33.4 g/dL (31.0-37.0); MCV 92.4 fL (80.0-100.0); MEAN PLATELET VOLUME 8.5 fL (7.4-10.4); MONOCYTES 5.9 % (2-11); NEUTROPHILS 57.2 % (40-80); PLATELET COUNT 366 10x3/uL (130-400); RBC 4.63 10x6/uL (4.00-5.40); RDW 13.6 % (11.5-14.5); WBC 9.4 10x3/uL (4.8-10.8)
[2019-09-11 15:17] LABS: ALBUMIN 3.9 g/dL (3.4-5.0); ALKALINE PHOSPHATASE 51 U/L (30-120); ALT (SGPT) 29 U/L (10-68); BILIRUBIN - TOTAL 0.26 mg/dL (0.2-1.3); CKMB 0.9 U/L (0.0-3.6); CREATINE KINASE 52 UL (21-215); MAGNESIUM - SERUM 1.9 mg/dL (1.8-2.4); PRO BNP 15 pg/mL (0-125); PROTEIN - SERUM 7.6 g/dL (6.4-8.2); TROPONIN-I < 0.017 ng/mL (0.000-0.060)
[2019-09-11 15:30] VITALS: BP 132/95
[2019-09-11 16:14] VITALS: BP 122/87
--- NOTE | 2019-09-11 16:55 | NUR ---
TRANSFERED FROM ER BY W/Filiberto MCKEON TO ROOM. CALL LIGHT IN REACH. WILL CONT. PLAN OF CARE.
[2019-09-11 17:25] LABS: BILIRUBIN NEGATIVE (NEGATIVE); GLUCOSE NEGATIVE (NEGATIVE); KETONE NEGATIVE (NEGATIVE); NITRITE POSITIVE (NEGATIVE); UROBILINOGEN NORMAL (NORMAL)
[2019-09-11 17:26] LABS: BACTERIA MANY /hpf (NEGATIVE); EPITHELIAL CELLS 0-5 /hpf (0-5); RED CELLS - URINE 0-5 /hpf (0-5)
[2019-09-11 17:35] VITALS: BP 138/85; BMI 30.4
[2019-09-11 17:54] LABS: UDS - AMPHET NEGATIVE QUAL (NEGATIVE); UDS - BARB NEGATIVE QUAL (NEGATIVE); UDS - BENZO POSITIVE QUAL (NEGATIVE); UDS - COCAINE NEGATIVE QUAL (NEGATIVE); UDS - OPIATE POSITIVE QUAL (NEGATIVE); UDS - PCP NEGATIVE QUAL (NEGATIVE); UDS - THC POSITIVE QUAL (NEGATIVE)
[2019-09-11 20:00] VITALS: BP 133/87
[2019-09-11 20:30] LABS: INR 1.11 (0.85-1.17); PROTIME 14.3 SECONDS (11.6-15.0)
[2019-09-11 20:32] LABS: D-DIMER-QUANTITATIVE < 0.27 ug/mLFEU (0.20-0.54)
[2019-09-11 21:04] LABS: CKMB 0.9 U/L (0.0-3.6); CREATINE KINASE 50 UL (21-215); TROPONIN-I < 0.017 ng/mL (0.000-0.060)
[2019-09-12] VITALS: BP 126/79
[2019-09-12 02:22] LABS: HEMATOCRIT 40.3 % (36.0-48.0); HEMOGLOBIN 13.4 g/dL (12-16); LYMPHOCYTES 50.6 % (15-50); MCH 30.7 pg (26.0-34.0); MCHC 33.3 g/dL (31.0-37.0); MCV 92.2 fL (80.0-100.0); MEAN PLATELET VOLUME 7.7 fL (7.4-10.4); NEUTROPHILS 42.4 % (40-80); PLATELET COUNT 351 10x3/uL (130-400); RBC 4.37 10x6/uL (4.00-5.40); RDW 13.7 % (11.5-14.5); WBC 8.5 10x3/uL (4.8-10.8)
[2019-09-12 02:39] LABS: CARBON DIOXIDE 28.5 mmol/L (21.0-32.0); CHLORIDE - SERUM 106 mmol/L (98-107); CKMB 0.8 U/L (0.0-3.6); CREATINE KINASE 50 UL (21-215); SODIUM 138 mmol/L (136-145); TROPONIN-I < 0.017 ng/mL (0.000-0.060); UREA NITROGEN 13 mg/dL (7-18); eGFR NON AFRICAN AMERICAN 59 mL/min (90-120)
[2019-09-12 02:40] LABS: CALC OSMOLALITY 276 mosm/kg (275-300); GLUCOSE 122 mg/dL (74-106)
[2019-09-12 04:00] VITALS: BP 119/73
--- NOTE | 2019-09-12 08:07 | NUR ---
ASSESSMENT DONE. DENIES NEEDS
[2019-09-12 09:00] VITALS: BP 125/81
[2019-09-12 10:27] VITALS: Ht 172.7 cm; Wt 90.7 kg
--- NOTE | 2019-09-12 10:36 | NUR ---
I have reviewed this patient and I concur with the Shift Assessment completed by the Licensed Practical Nurse today this shift.
[2019-09-12 12:00] VITALS: BP 130/62
[2019-09-12] MEDS ORDERED: BACTRIM DS TAB1 EAC1 PO (14:03)
--- NOTE | 2019-09-12 16:09 | NUR ---
DC HOME PER PERSONAL CAR
--- NOTE | 2019-09-13 08:51 | EC ---
PATIENT:TATYANA RAYMOND DATE OF SERVICE: 09/11/19 SEX: F MEDICAL RECORD: [id number] DATE OF : 55 LOCATION:D.M2 D.212 AGE OF PATIENT: 63 ADMISSION DATE: 09/11/19 REFERRING PHYSICIAN: INTERPRETING PHYSICIAN: MICHAEL WADDELL MD ECHOCARDIOGRAM REPORT ECHO CHARGES 4 ECHO COMPLETE Date: 09/12/19 CLINICAL DIAGNOSIS: LVH ECHOCARDIOGRAPHIC MEASUREMENTS (adult normal given) AC root (d.<3.7cm) 3.2 cm LV Septum d (<1.2 cm> 0.8 cm Valve Excursion 1.3 cm LV Septum (systole) 1.2 cm Left Atria (s.<4.0cm> 3.5 cm LVPW d(<1.2cm) 1.2 cm RV (d.<2.3cm) 3.2 cm LVPW (sytole) 1.3 cm LV diastole(<5.6CM) 6.0 cm MV E-F(>70mm/sec) cm LV systole 4.3 cm LVOT Diameter 2.0 cm MV exc.(>10mm) cm Est.ejection fraction (50-75%) % DOPPLER: LVIT cm/sec A 73 cm/sec E 59 cm/sec LA cm/sec RVSP 14.3 mmHg LVOT 89 cm/sec AOP1/2T m/s Asc. Ao 128 cm/sec RVOT 53 cm/sec RA cm/sec PA 84 cm/sec AV Gradient Peak 6.5 mmHg AV Mean 4.3 mmHg AV Area 2.2 cm MV Gradient Peak 2.2 mmHg MV Mean 1.3 mmHg MV Area cm COMMENTS: Roofing Layer: Rufina HARRIS Senior Lead Project Manager: 3 Dr. Mathis TAPE# PACS Pericardial Effusion N DATE OF SERVICE: Adequate 2D, color flow imaging, spectral Doppler, and M-Mode. No LVH. LV internal dimension is normal. Wall motion is normal. EF is greater than or equal to 55%. Aortic valve is tricuspid. No evidence of stenosis by Doppler interrogation. Left atrium is normal at 3.5 cm. Mitral valve shows no prolapse. Trivial MR. Right-sided chambers are grossly normal. Trivial TR. TRANSINT:[id number] Voice Confirmation ID: [id number] DOCUMENT ID: [id number] ECHOCARDIOGRAM REPORT [id number] MANDITATYANA NIETO,MICHAEL March MD at 0851 CC: [id number] DICTATION DATE: 09/12/19 1313 HOOK AND EYE ATTACHER: 09/12/19 1342 DIS IN 09/12/19 [facility] [address] [place] [address]
== END 2019-09-12 16:10 | disposition home or self-care (01) ==
LOC: D.ER 14:18 → D.M2 15:57 → OBSVTIME 16:27 → D.M2 09-12 16:10
PROVIDERS: Emergency Medicine; ADMIT Family Medicine; ATTEND Family Medicine
DX: I25.110 Atherosclerotic heart disease of native coronary artery with unstable angina pectoris (principal); E87.6 Hypokalemia; I10 Essential (primary) hypertension; K21.9 Gastro-esophageal reflux disease without esophagitis; F41.8 Other specified anxiety disorders; G89.29 Other chronic pain; I48.91 Unspecified atrial fibrillation; J44.9 Chronic obstructive pulmonary disease, unspecified; E78.5 Hyperlipidemia, unspecified; N39.0 Urinary tract infection, site not specified

== ENCOUNTER 2019-09-23 11:09 | Day surgery (SDC) | payer MEDICARE ==
[~2019-09-23] VITALS: Ht 172.7 cm; Wt 92.3 kg
[~2019-09-23 11:09] MED LIST changes: +BACTRIM DS TAB1 EAC1 PO
[2019-09-23 11:43] LABS: HEMATOCRIT 42.2 % (36.0-48.0); HEMOGLOBIN 14.2 g/dL (12-16); MCH 30.9 pg (26.0-34.0); MCHC 33.6 g/dL (31.0-37.0); MCV 91.7 fL (80.0-100.0); MEAN PLATELET VOLUME 7.9 fL (7.4-10.4); RBC 4.6 10x6/uL (4.00-5.40); RDW 14.1 % (11.5-14.5); WBC 7.2 10x3/uL (4.8-10.8)
[2019-09-23 11:47] LABS: ANION GAP 14.4 mmol/L (8-16); CALCIUM 9.7 mg/dL (8.5-10.1); CARBON DIOXIDE 25.4 mmol/L (21.0-32.0); CREATININE - SERUM 1.1 mg/dL (0.6-1.3); POTASSIUM - SERUM 3.8 mmol/L (3.5-5.1)
[2019-09-23 13:11] VITALS: Ht 172.7 cm; Wt 92.3 kg
--- NOTE | 2019-09-23 15:10 | NUR ---
PATIENT SITTING ON SIDE OF BED, DISCHARGE INSTRUCTIONS REVIEWED WITH PATIENT AND FAMILY MEMBER, DISCHARGED HOME VIA WHEELCHAIR TO PRIVATE VEHICLE WITH DISCHARGE INSTRUCTIONS IN HAND
--- NOTE | 2019-09-24 07:09 | OP ---
PATIENT NAME: TATYANA RAYMOND MEDICAL RECORD: [id number] :55 LOCATION:[facility] ADMISSION DATE: SURGEON: ROSENDA MEDRANO DO DATE OF OPERATION: 09/23/2019 PROCEDURE: Colonoscopy with polypectomy and biopsies. INDICATIONS FOR PROCEDURE: Chronic constipation, altered bowel function, hematochezia. SCOPE: Olympus video pediatric colonoscope. MEDICATIONS: Propofol 650 mg IV per anesthesia. ESTIMATED BLOOD LOSS: Minimal. COMPLICATIONS: None. WITHDRAWAL TIME: 19 minutes. FINDINGS AND DESCRIPTION OF PROCEDURE: Informed consent was given. The patient was made comfortable with the above medication. After reaching an adequate level of sedation by slow IV push, the patient was placed on her left side. A digital rectal examination was performed and revealed an abnormal lesion located in the 12 to 3 o'clock position. It measured approximately 2.5 cm in size. It appeared centrally ulcerated with heaped up margins. Appearances were concerning for a cancerous lesion. The endoscope was advanced under direct visualization through the rectum to the cecum, confirmed by the presence of the appendiceal orifice and ileocecal valve. The endoscope was slowly withdrawn and mucosa was carefully examined. The prep quality was poor, so visualization of the entire mucosa was not possible. There were no diverticula visualized on today's examination. There were 4 polyps removed. Three were located in the ascending colon and one was located in the sigmoid colon. In this ascending colon, they measured 3-5 mm in diameter. They were removed using combination of hot forceps and a hot snare. In the sigmoid colon, polyp was benign appearing sessile and measured approximately 4-5 mm in diameter. It was removed using cold snare. Retroflexion was performed in the rectum with visualization of grade I internal hemorrhoids without bleeding. There was a site that possibly had some abnormal-appearing tissue, so a cold forceps biopsy was performed based on the findings from the anus, which was concerning for malignancy. The endoscope was withdrawn from the patient. The patient tolerated the procedure well and there were no complications. IMPRESSION: 1. Inadequate prep. 2. Abnormal appearing anal lesion in the 12 to 3 o'clock location, which measured approximately 2.5 cm. Findings were concerning for malignancy. 3. Grade I internal hemorrhoids. 4. Four polyps as described above, removed using a combination of a hot forceps, hot snare and cold snare. PLAN AND RECOMMENDATIONS: 1. Discharge home when recovery parameters are met. 2. Follow up biopsy specimen results. 3. High fiber diet. OPERATIVE REPORT [id number] TATYANA RAYMOND 4. Continue current medications including Linzess 290 mcg b.i.d. 5. Recommend a repeat colonoscopy in 1 year based on the inadequate prep encountered today. 6. We will refer to Dr. Carlson for evaluation of the anal lesion for biopsies, so that we can make a tissue diagnosis in order to move forward with management. TRANSINT:[id number] Voice Confirmation ID: [id number] DOCUMENT ID: [id number] ROSENDA MEDRANO DO at 0709 CC: [id number] DICTATION DATE: 09/23/19 1426 PERCUSSION INSTRUMENT TUNER: 09/24/[address] [facility] 09/23/19 [facility] [address] [place] [address]
== END 2019-09-23 15:10 | disposition home or self-care (01) ==
LOC: D.OPS 11:09
PROVIDERS: Anesthesiology; ATTEND Internal Medicine Gastroenterology
DX: K59.09 Other constipation (principal); K92.1 Melena; E11.9 Type 2 diabetes mellitus without complications; R13.10 Dysphagia, unspecified; R10.9 Unspecified abdominal pain

== ENCOUNTER 2019-10-02 06:20 | Day surgery (SDC) | payer MEDICARE ==
[~2019-10-02] VITALS: Ht 172.7 cm; Wt 92.1 kg
--- NOTE | ~2019-10-02 | OP ---
PATIENT NAME: TATYANA RAYMOND MEDICAL RECORD: [id number] :55 LOCATION:D.[facility] ADMISSION DATE: SURGEON: WILLARD ALVARES MD DATE OF OPERATION: 10/02/2019 PREOPERATIVE DIAGNOSIS: Anal mass. 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 PROCEDURE: Incisional anal biopsy. SURGEON: Willard Alvares MD DEGREE CLERK: None. BLOOD LOSS: Minimal. ANESTHESIA: General. COMPLICATIONS: None. The risks, possible complications and alternatives to the procedure were explained to the patient. She elects to proceed. OPERATIVE COURSE: The patient was conveyed the operating room electively on 10/02/2019. General anesthesia was induced by the anesthesia staff. The patient was placed in the lithotomy position. The buttocks were taped laterally. The anus, perineum, buttocks and perianal area was sterilely prepped and draped. U-shaped anal retractors were placed. About a fourth of the circumference of the anus was involved in an ulcerated fungating mass. This had eroded through both the internal and external sphincters at one site. It was going to be impossible to perform an excisional biopsy. I am surprised that the patient has not had fecal incontinence considering the size of the mass. It extends out onto the perianal skin. My best hope was to perform an incisional biopsy to obtain a diagnosis. With the scalpel, I incised a wedge of tissue including some of the perianal skin. The ulcerated mass has induration that extends past the area of ulceration. So, I think this is a very extensive anal cancer. After performing the incisional biopsy with the scalpel, I then sent the tissue for frozen section analysis, which revealed that it was a squamous cell carcinoma. Hemostasis was achieved with electrocautery. A combination of Marcaine and a steroid preparation were used to infiltrate the perianal tissues. A topical anesthetic cream was applied to the external hemorrhoids after the Gelfoam was packed within the anus. The patient was then extubated and conveyed to post-anesthesia care unit where she was in stable condition. She will be following up with me soon in the office. She is being dismissed home with a narcotic analgesia prescription. TRANSINT:[id number] Voice Confirmation ID: [id number] DOCUMENT ID: [id number] OPERATIVE REPORT [id number] TATYANA RAYMOND ROBERT MD CC: [id number] DICTATION DATE: 10/14/19 0135 SAGGER FILLER: 10/14/19 0208 [facility] 10/02/19 [place] [id number] [place] [address]
[~2019-10-02 06:20] MED LIST changes: +LINZESS290 MCG PO
[2019-10-02 06:40] LABS: BASOPHILS 0.4 % (0-2); EOSINOPHILS 2.2 % (0-7); HEMATOCRIT 39.8 % (36.0-48.0); HEMOGLOBIN 13.1 g/dL (12-16); IMMATURE GRANULOCYTES 0.1 % (0-5); LYMPHOCYTES 44.6 % (15-50); MCH 30.9 pg (26.0-34.0); MCHC 32.9 g/dL (31.0-37.0); MCV 93.9 fL (80.0-100.0); MEAN PLATELET VOLUME 8.1 fL (7.4-10.4); MONOCYTES 5.6 % (2-11); NEUTROPHILS 47.1 % (40-80); RBC 4.24 10x6/uL (4.00-5.40); RDW 14.5 % (11.5-14.5); WBC 7.2 10x3/uL (4.8-10.8)
[2019-10-02 06:43] LABS: PLATELET COUNT 314 10x3/uL (130-400)
[2019-10-02 06:52] LABS: ANION GAP 13.8 mmol/L (8-16); CALCIUM 9.1 mg/dL (8.5-10.1); CARBON DIOXIDE 24.9 mmol/L (21.0-32.0); POTASSIUM - SERUM 3.7 mmol/L (3.5-5.1)
[2019-10-02 08:30] VITALS: BP 152/73; Ht 172.7 cm; Wt 92.1 kg
--- NOTE | 2019-10-02 14:37 | NUR ---
1350-AMBULATED TO RESTROOM WITH SLOW STEADY GAIT AND VOIDED WITHOUT COMPLICATIONS. TOLERATING FLUIDS. NO DISTRESS. PAIN 4/10 TO RECCTUM.
--- NOTE | 2019-10-02 14:38 | NUR ---
1429-REVIEWED POST OP INSTRUCTIONS,FOLLOW UP WITH DR. ALVARES,AND AWARE DR. JEAN BAPTISTE OFFICE WITH CALL WITH APPOINTMENT. VERBALIZED UNDERSTANDING.
--- NOTE | 2019-10-02 14:39 | NUR ---
1433-PT DRESSED. ESCORTED OUT VIA W/C BY STAFF WITH SIGNIFICANT OTHER AWAITING TO DRIVE HOME
--- NOTE | 2019-10-02 14:40 | NUR ---
1429-REMOVED IV WITH CATH INTACT,DISPOSED INTO SHARPS,COVERED WITH GUAZE,SECURED WITH MEDIPORE TAPE.
== END 2019-10-02 14:33 | disposition home or self-care (01) ==
LOC: D.OPS 06:20
PROVIDERS: ATTEND Surgery
DX: K62.89 Other specified diseases of anus and rectum (principal); C21.0 Malignant neoplasm of anus, unspecified; E78.5 Hyperlipidemia, unspecified; I10 Essential (primary) hypertension; J44.9 Chronic obstructive pulmonary disease, unspecified; K21.9 Gastro-esophageal reflux disease without esophagitis

== ENCOUNTER 2019-10-11 14:35 | Emergency (ER) | payer MEDICARE ==
[~2019-10-11] VITALS: Ht 172.7 cm; Wt 90.9 kg
[2019-10-11 14:37] VITALS: Ht 172.7 cm; Wt 90.9 kg
[2019-10-11 15:11] LABS: HEMATOCRIT 41.6 % (36.0-48.0); HEMOGLOBIN 13.9 g/dL (12-16); MCH 30.6 pg (26.0-34.0); MCHC 33.4 g/dL (31.0-37.0); MCV 91.6 fL (80.0-100.0); NEUTROPHILS 70.8 % (40-80); PLATELET COUNT 398 10x3/uL (130-400); RBC 4.54 10x6/uL (4.00-5.40); RDW 14.2 % (11.5-14.5); WBC 11.9 10x3/uL (4.8-10.8)
[2019-10-11 15:22] LABS: APTT 24.1 SECONDS (22.8-39.4); INR 0.88 (0.85-1.17); PROTIME 11.9 SECONDS (11.6-15.0)
[2019-10-11 15:26] LABS: CALC OSMOLALITY 279 mosm/kg (275-300); CALCIUM 9.3 mg/dL (8.5-10.1); CARBON DIOXIDE 25.4 mmol/L (21.0-32.0); CHLORIDE - SERUM 101 mmol/L (98-107); CREATININE - SERUM 1.4 mg/dL (0.6-1.3); POTASSIUM - SERUM 3.5 mmol/L (3.5-5.1); SODIUM 135 mmol/L (136-145); UREA NITROGEN 27 mg/dL (7-18); eGFR NON AFRICAN AMERICAN 40 mL/min (90-120)
[2019-10-11 15:28] LABS: GLUCOSE 196 mg/dL (74-106)
[2019-10-11 15:43] LABS: ALBUMIN 3.9 g/dL (3.4-5.0); ALKALINE PHOSPHATASE 53 U/L (30-120); ALT (SGPT) 20 U/L (10-68); CREATINE KINASE 38 UL (21-215); PRO BNP 11 pg/mL (0-125); PROTEIN - SERUM 7.6 g/dL (6.4-8.2)
[2019-10-11 15:47] LABS: TROPONIN-I < 0.017 ng/mL (0.000-0.060)
[2019-10-11 16:23] LABS: FERRITIN 200 ng/mL (3-244)
[2019-10-11 16:25] LABS: C-REACTIVE PROTEIN < 0.2 mg/dL (0.0-0.9)
[2019-10-11 21:20] VITALS: BP 130/91
== END 2019-10-11 20:16 | disposition home or self-care (01) ==
LOC: D.ER 14:35
PROVIDERS: Family Medicine
DX: Z20.828 Contact with and (suspected) exposure to other viral communicable diseases (principal); J44.1 Chronic obstructive pulmonary disease with (acute) exacerbation; I10 Essential (primary) hypertension; I25.2 Old myocardial infarction; K21.9 Gastro-esophageal reflux disease without esophagitis

== ENCOUNTER 2019-11-02 12:07 | Observation (INO) | payer MEDICARE, MEDICAID ==
[~2019-11-02] VITALS: Ht 172.7 cm; Wt 90.0 kg
--- NOTE | ~2019-11-02 | HEMODYNAMI ---
PATIENT:TATYANA RAYMOND MEDICAL RECORD: [id number] : 55 LOCATION[facility] [id number] ADMISSION DATE: 11/02/19 Generatedon:11/03/20199:51 Patient name: TATAYNA RAYMOND Patient #: [id number] SSN: : 1955 Date of study: 11/03/2019 Page: Of Hemodynamic Procedure Report Patient Data Patient Demographics Procedure consent was obtained First Name: TATYANA Gender: Female Last Name: MANDI : 1955 [facility] Initial: OREN Age: 63 year(s) Patient #: [id number] Race: Unknown Additional ID: [id number] Contact details [address]: [address] [place] [address] State: [place] City: [place] Zip code: [address] Past Medical History Allergies Allergen Reaction Date Comments Reported Iodine 07/06/2016 Penicillins 07/06/2016 Other allergy 07/06/2016 Levaquin, Amitryptyline Other allergy 03/15/2017 PCN, Niacin, Levaquin, Elavil, Contrast. Other allergy 03/16/2017 Penicillin, Niacin, Levaquin, Elavil, Contrast Other allergy 06/18/2018 Iodinated Contrast, PCN, Amitriptyline, levofloxacin, Niacin, Morphine Iodine 11/03/2019 Admission Admission Data Admission Date: 11/02/2019 Admission Time: 12:53 Arrival Date: 11/03/2019 Arrival Time: 0:00 Room #: D.2116 Height (in.): 67.72 BSA: 2.03 (m2) Height (cm.): 172 BMI: 30.42 (kg/m2) Weight (lbs.): 198.42 Weight (kg.): 90 Lab Results Lab Result Date: 11/03/2019 Lab Result Time: 0:00 Biochemistry Name Units Result Min Max BUN mg/dl 7 --(*---)-- 7 18 Creatinine mg/dl 0.9 --(-*--)-- 0.6 1.3 eGFR ml/min 67.72666 *-(----)-- 90 120 NONAFRICAN CBC Name Units Result Min Max Hematocrit % 39.5 -*(----)-- 42 54 Hemoglobin g/dl 13 -*(----)-- 13.5 17.5 Procedure Procedure Types Cath Procedure Diagnostic Procedure LHC LHC w/Coronaries w/Grafts Aortic Root Angiography Sedation Charges Moderate Sedation up to 30 minutes PCI Procedure AMI/SVG/PIPE BLANKS CUT OFF SAW OPERATOR PTCA or Stent SVG-BMS/SAE Initial Hemochron ACT Test Procedure Description Procedure Date Procedure Date: 11/03/2019 Procedure Start Time: 9:15 Procedure End Time: 9:49 Procedure Staff Name Function Sampson Almeida MD Performing Physician Olamide Arndt RT Scrub Fanny Llanes RN Nurse Karen Alston RT Monitor Shaina Tovar RT Datapower Developer Procedure Data Cath Procedure Fluoroscopy Diagnostic fluoroscopy Total fluoroscopy Time: 5 time: 5 min min Diagnostic fluoroscopy Total fluoroscopy dose: dose: 1161 mGy 1161 mGy Contrast Material Contrast Material Type Amount (ml) Isovue 300 146 Entry Location Entry Primary Successful Side Size Upsize Upsize Entry Closure Succes sful Closure Location (Fr) 1 (Fr) 2 (Fr) Remarks Device Remarks Femoral Right 5 Fr 6 Fr Exoseal artery Short Estimated blood loss: 10 ml Diagnostic catheters Device Type Used For End Catheter Placement MULTIPACK JL 4.0 5Fr Procedure catheter MULTIPACK 3DRC 5Fr Procedure catheter DIAGNOSTIC AR1 MOD 5Fr Procedure catheter ([id number]) MULTIPACK Pigtail 5 Fr Procedure catheter Procedure Complications No complications Procedure Medications Medication Administration Route Dosage 0.9% NaCl I.V. 100 ml/hr Oxygen etCO2 Nasal cannula 2 l/min Lidocaine 2% added to field 20 Heparin Flush Bag added to field 2 bags (1000units/500ml NS) Plavix P.O. 75 mg Versed I.V. 2 mg Fentanyl I.V. 50 mcg Versed I.V. 2 mg Fentanyl I.V. 50 mcg Versed I.V. 2 mg Fentanyl I.V. 50 mcg Heparin Bolus I.V. 5000 units Fentanyl I.V. 50 mcg Lopressor I.V. 5 mg Hemodynamics Rest BSA: 2.03 (m2) HGB: 13 (g/dl) O2 Consumption: Estimated: 201.83 (ml/min) O2 Cons umption indexed: Estimated:99.42 (ml/min/m) Heart Rate: 85 (bpm) Pressure Samples Time Site Value (mmHg) Purpose Heart Use Rate(bpm) 9:26 LV 168/22,32 Snapshot 94 9:26 AO 163/101(129) Pullback 94 9:26 LV 160/13,24 Pullback 94 Gradients Valve Time Site 1 Site 2 Mean SEP/DFP Peak To Heart Use (mmHg) (sec/min) Peak Rate (mmHg) (bpm) Aortic 9:26 LV AO 0 12 0 94 160/13,24 163/101(129) Calculations Valve P-P Mean Valve Index Valve Source Name Gradient Area Flow (cm2) Aortic 0 0 0 0 Snapshots Pre Cath Intra NCS Post Cath Vital Signs Time Heart Resp SPO2 etCO2 NIBP (mmHg) Rhythm Pain Sedation Rate (ipm) (%) (mmHg) Status Level (bpm) 8:58:43 77 17 98 31.4 170/103(145) NSR 0 (11) 10(A) , No pain 9:03:13 86 15 98 32.2 173/100(134) NSR 0 (11) 10(A) , No pain 9:07:47 84 13 98 34.4 166/93(138) NSR 0 (11) 10(A) , No pain 9:12:18 88 14 98 33.7 146/92(126) NSR 0 (11) 10(A) , No pain 9:16:40 89 15 98 30.7 159/97(119) NSR 0 (11) 10(A) , No pain 9:21:06 91 23 98 36.7 150/120(130) NSR 0 (11) 10(A) , No pain 9:25:30 94 29 97 38.2 156/97(135) NSR 0 (11) 10(A) , No pain 9:29:57 95 10 98 37.4 161/93(119) NSR 0 (11) 10(A) , No pain 9:34:25 93 13 98 37.4 168/94(127) NSR 0 (11) 10(A) , No pain 9:38:55 92 13 97 42.6 170/101(132) NSR 0 (11) 10(A) , No pain 9:43:24 77 11 97 30.7 165/102(140) NSR 0 (11) 10(A) , No pain 9:47:52 74 17 98 32.2 152/95(141) NSR 0 (11) 10(A) , No pain Medications Time Medication Route Dose Verified Delivered Reason Notes Effectiveness by by 8:55:15 0.9% NaCl I.V. 100 Sampson Fanny used for ml/hr Juan PabloKai Llanes procedure MD WADE 8:55:20 Oxygen etCO2 2 Sampson Fanny used for Nasal l/min [place] Mario Alberto procedure cannula MD WADE 8:55:25 Lidocaine 2% added 20ml Sampson Sampson for local to vial [facility] anesthetic field MD LLANOS 8:55:29 Heparin Flush added 2 Sampson Sampson used for Bag to bags [facility] procedure (1000units/500ml field MD LLANOS NS) 8:58:11 Plavix P.O. 75 mg Sampson Fanny for [place] Mario Alberto antiplatelet RN therapy 9:13:00 Versed I.V. 2 mg Sampson Fanny for sedation [facility] Kai Llanes MD, RN 9:13:05 Fentanyl I.V. 50 Sampson Fanny for sedation [facility] Llanes MD RN 9:18:26 Versed I.V. 2 mg Sampson Fanny for sedation St Kai Llanes MD, RN 9:18:30 Fentanyl I.V. 50 Sampson Fanny for sedation [facility] Llanes MD RN 9:24:19 Versed I.V. 2 mg Sampson Fanny for sedation St Kai Llanes MD, RN 9:24:30 Fentanyl I.V. 50 Sampson Fanny for sedation [facility] Kai Llanes MD RN 9:27:37 Heparin Bolus I.V. 5000 Sampson Fanny for verifi ed units Juan PabloKai Llanes anticoagulation with Dr. MD W[facility] 9:30:23 Fentanyl I.V. 50 Sampson Fanny for sedation [facility] Kai Llanes MD RN 9:38:00 Lopressor I.V. 5 mg Sampson Fanny for [facility] Kai Llanes hypertension MD WADEcash processing specialist Log Time Note 8:22:54 Informed consent obtained and on chart 8:35:19 Procedure Status Urgent Heart Cath (IP). 8:35:21 Time tracking: Call back (After hours or weekends) 8:35:25 Plan of Care:Hemodynamics will remain stable., Cardiac rhythm will remain stable., Comfort level will be maintained., Respiratory function will remain adequate., Patient/ family verbilizes understanding of procedure., Procedure tolerated without complication., Recovers from procedure without complications.. 8:35:35 H&P Date Dictated: 11/02/2019 Within 30 days and on chart., H&P Addendum completed by physician on day of procedure. (MUST COMPLETE FOR ALL OUTPATIENTS). 8:35:45 Patient allergic to Iodine 8:36:47 Lab Result : BUN 7 mg/dl 8:36:47 Lab Result : eGFR NONAFRICAN 67.55650 ml/min 8:36:47 Lab Result : Creatinine 0.9 mg/dl 8:36:47 Lab Result : Hematocrit 39.5 % 8:36:47 Lab Result : Hemoglobin 13 g/dl 8:38:41 Patient Weight : 198.42 lbs 8:38:44 Patient Height : 67.72 inches 8:38:49 Arrival Date: 11/03/2019 12:00:00 AM 8:40:09 Karen Alston RT(R) sent for patient. Start room use. 8:55:15 0.9% NaCl 100 ml/hr I.V. was administered by Fanny Llanes RN; used for procedure; Verbal order read back and verified. 8:55:20 Oxygen 2 l/min etCO2 Nasal cannula was administered by Fanny Llanes RN; used for procedure; Verbal order read back and verified. 8:55:25 Lidocaine 2% 20ml vial added to field was administered by Sampson Almeida MD; for local anesthetic; Verbal order read back and verified. 8:55:29 Heparin Flush Bag (1000units/500ml NS) 2 bags added to field was administered by Sampson Almeida MD; used for procedure; Verbal order read back and verified. 8:56:28 Patient received from Med II to CCL 1 Alert and oriented. Tansferred to table in Supine position. 8:56:29 Warm blankets applied, and kathya hugger turned on for patient comfort. 8:56:29 Correct patient and procedure confirmed by team. 8:56:30 ECG and BP/O2 sat monitors applied to patient. 8:56:36 Pre-procedure instructions explained to patient. 8:56:36 Pre-op teaching completed and patient verbalized understanding. 8:56:38 Family in patients room. 8:57:18 Vital chart was started 8:57:39 Rhythm: sinus rhythm 8:57:40 Full Disclosure recording started 8:57:44 Is the patient allergic to Iodine/contrast media? Yes. 8:57:45 Was the patient premedicated? Yes 8:57:47 Is patient on blood thinner?Yes 8:57:49 ACC The patient was administered the following blood thiners within the last 24 hours: ACCPlavix 8:57:51 Patient diabetic? No. 8:57:54 Previous problem with sedation/anesthesia? No ? 8:57:55 Snore? Yes 8:57:56 Sleep apnea? No 8:57:57 Deviated septum? No 8:57:58 Opens mouth fully? Yes 8:57:58 Sticks out tongue? Yes 8:58:03 Airway obstruction? Yes COPD 8:58:05 Dentures? No ? 8:58:09 Pre procedure: right dorsailis pedis pulse 1+ Palpable, but thready & weak; easily obliterated 8:58:11 Plavix 75 mg P.O. was administered by Fanny Llanes RN; for antiplatelet therapy; Verbal order read back and verified. 8:58:27 IV patent on arrival in left hand with 0.9% NaCl at O. 8:58:57 Lab results completed and on chart. 8:59:00 Right groin area was prepped with chlora-prep and draped in sterile fashion 8:59:02 Alarms reviewed by R. N. 8:59:05 Sharps counted by scrub and verified by R.N. 8:59:11 Baseline sample Acquired. 9:00:00 Use device set Femoral Dx 9:00:01 ACIST Syringe (25602) opened to sterile field. 9:00:02 Bag Decanter (2002S) opened to sterile field. 9:00:03 ACIST Hand Control (01245) opened to sterile field. 9:00:03 ACIST Manifold (54397) opened to sterile field. 9:00:04 Tegaderm 4 x 4 (1626W) opened to sterile field. 9:00:06 Medline Cath Pack ([id number]) opened to sterile field. 9:00:07 DIAGNOSTIC Multipack 5Fr catheter set (FC9162) opened to sterile field. 9:00:07 SHEATH 5FR [place] ([id number]) opened to sterile field. 9:00:09 EMERALD Guide Wire (981-638) opened to sterile field. 9:07:46 Zero performed for pressure channel P1 9:12:52 --------ALL STOP TIME OUT------ 9:12:52 Final Timeout: patient, procedure, and site verified with staff and physician. All members of the team are in agreement. 9:12:54 Right groin site verified by team. 9:12:57 Fire Safety Assessment: A--An alcohol-based skin anteseptic being used preoperatively., C--Open oxygen or nitrous oxide is being used., D--An ESU, laser, or fiber-optic light is being used. 9:13:00 Versed 2 mg I.V. was administered by Fanny Llanes RN; for sedation; Verbal order read back and verified. 9:13:05 Fentanyl 50 mcg I.V. was administered by Fanny Llanes RN; for sedation; Verbal order read back and verified. 9:13:05 Physical assessment completed. ASA score P 3 - A patient with severe systemic disease as per Sampson Almeida MD. 9:13:09 2) 60-89 Mildly reduced kidney function, and other findings (as for stage 1) point to kidney disease. 9:13:12 Maximum allowable contrast dose (3.7 X eGFR X 0.75)186 ml. 9:13:16 Sedation plan: IV Moderate Sedation Medication:Versed, Fentanyl 9:15:00 Procedure started. 9:15:31 Local anesthetic to right femoral artery with Lidocaine 2% by Sampson Almeida MD.INITIAL ACCESS ONLY 9:18:01 A 5 Fr sheath was inserted into the Right Femoral artery 9:18:26 Versed 2 mg I.V. was administered by Fanny Llanes RN; for sedation; Verbal order read back and verified. 9:18:30 Fentanyl 50 mcg I.V. was administered by Fanny Llanes RN; for sedation; Verbal order read back and verified. 9:19:20 A MULTIPACK JL 4.0 5Fr catheter was advanced over the wire and used for Procedure. 9:20:37 LCA angiography performed. 9:20:39 Catheter removed. 9:20:43 A MULTIPACK 3DRC 5Fr catheter was advanced over the wire and used for Procedure. 9:21:48 RCA angiography performed. 9:22:32 Catheter removed. 9:23:23 A DIAGNOSTIC AR1 MOD 5Fr catheter ([id number]) was advanced over the wire and used for Procedure. 9:23:38 SVG to RCA angiography performed. 9:23:50 SVG to Diag angiography performed. 9:24:19 Versed 2 mg I.V. was administered by Fanny Llanes RN; for sedation; Verbal order read back and verified. 9:24:30 Fentanyl 50 mcg I.V. was administered by Fanny Llanes RN; for sedation; Verbal order read back and verified. 9:24:50 Catheter removed. 9:24:57 A MULTIPACK Pigtail 5 Fr catheter was advanced over the wire and used for Procedure. 9:25:45 LV gram done using GARCIA 9::47 Injector settings: Ml/sec: 10, Volume: 20, 9:26:20 LV hemodynamics recorded. 9:26:31 EF : 55 % 9:27:00 Aortic Root visualized 9:27:06 Catheter removed. 9:27:09 Proceeding to intervention. 9:27:21 Pre PCI Site: Vein Graft Diag1 has 80% stenosis. 9:27:37 Heparin Bolus 5000 units I.V. was administered by Fanny Llanes RN; for anticoagulation; verified with Dr. Mathis Verbal order read back and verified. 9:27:40 SHEATH 6FR [place] (NAN743) opened to sterile field. 9:27:41 WHISPER 300cm guide wire ([id number]) opened to sterile field. 9:27:41 INFLATOR Merit BasixCompak (FZ3211) opened to sterile field. 9:27:42 GUIDE 6FR AR 1.0 catheter ([id number]) opened to sterile field. 9:28:01 Sheath upsized to a 6 Fr Short. 9:29:09 6 Fr AR 1 guide catheter was inserted over the wire 9:30:23 Fentanyl 50 mcg I.V. was administered by Fanny Llanes RN; for sedation; Verbal order read back and verified. 9:31:48 WHISPER 300 wire advanced. 9:31:52 Wire advanced across lesion. 9:36:13 Place stent Inflation Number: 1 A INTEGRITY RX 3.5 x 09 stent ([id number]) was prepped and advanced across the Aorta Left -> 1st Diag . The stent was deployed at 14 ROCKY for 0:20 (min:sec) . 9:36:38 Wire removed. 9:36:41 Stent catheter was removed intact over wire. 9:36:42 Guide catheter removed. 9:36:54 EXOSEAL 6Fr (EX600) opened to sterile field. 9:38:00 Lopressor 5 mg I.V. was administered by Fanny Llanes RN; for hypertension; Verbal order read back and verified. 9:38:05 Sheath removed intact; hemostasis achieved with Exoseal to the Right Femoral artery. 9:38:16 Procedure ended.(Physican Out) 9:39:52 Fluoroscopy time 05.00 minutes. 9:39:55 Fluoroscopy dose: 1161 mGy 9:39:55 Flurop Dose total: 1161 9:40:01 Dose Area Product 41555 mGy/cm. 9:40:05 ACT drawn and resulted at 211 seconds. (normal therapeutic range 180-240 seconds). 9:40:05 Contrast amount:Isovue 300 146ml. 9:40:07 Maximum allowable dose exceeded? No. 9:40:07 Sharps counted by scrub and verified by R.N. 9:40:11 Post-op/insertion site Right Femoral artery dressed using a 4 x 4 and Tegaderm. 9:40:13 Post-procedure physical assessment completed. ASA score P 3 - A patient with severe systemic disease as per Sampson Almeida MD. 9:40:16 Post procedure rhythm: sinus rhythm 9:40:18 Estimated blood loss: 10 ml 9:40:24 Post procedure instruction explained to patient.Patient verbalizes understanding. 9:40:24 Patient needs reinforcement of post procedure teaching. 9:40:59 Procedure type changed to Cath procedure, Diagnostic procedure, LHC, LHC w/Coronaries w/Grafts, Aortic Root Angiography, Sedation Charges, Moderate Sedation up to 30 minutes, PCI procedure, AMI/SVG/PIPE BLANKS CUT OFF SAW OPERATOR PTCA or Stent, SVG-BMS/SAE Initial, Hemochron ACT Test 9:44:34 Procedure and supply charges have been captured, reviewed, submitted and are correct. 9:44:36 Procedure Complication : No complications 9:48:46 Vital chart was stopped 9:48:52 [facility] Findings: MVD- PCI performed (see procedure note) 9:48:54 Operative report dictated upon procedure completion. 9:48:56 See physician's report for complete and final results. 9:48:58 Report given to [facility]. 9:49:01 Patient transfered to [facility] with Bed. 9:49:03 Procedure ended. 9:49:03 Full Disclosure recording stopped 9:49:07 End room use (Document Last) Intervention Summary Intervention Notes Time ActionType Lesion and Equipment Action# Pressure Duration Attributes Used 9:36:13 Place stent Aorta Left INTEGRITY RX 1 14 00:20 -> 1st Diag 3.5 x 09 stent ([id number]) Device Usage Item Name Manufacture Quantity Catalog Hospital Part Current Minimal Lot# / Number Charge Number Stock Stock Serial# Code ACIST Acist 1 78105 327751 843589 039216 20 Syringe Medical (43177) Systems Inc Bag Decanter Microtek 1 2001S 615280 85816 969641 5 (2001S) Medical Inc. ACIST Hand Acist 1 18323 622948 471190 683212 5 Control Medical (15301) Systems Inc ACIST Acist 1 26844 049817 786170 595371 5 Manifold Medical (18661) Systems Inc Tegaderm 4 x 3M 1 1626W 623644 704964 770145 5 4 (1626W) Medline Cath Medline 1 [id number] 820962 98894 831879 5 Pack ([id number]) DIAGNOSTIC Cardinal 1 YV9904 382468 90260 406790 30 Multipack Health 5Fr catheter set (IJ7744) SHEATH 5FR Terumo 1 HDH067 756051 808723 957319 5 [place] (MCT965) EMERALD Cardinal 1 502-455 262340 085945 396359 5 Guide Wire Health (502455) MULTIPACK JL Cardinal 1 191007 5 4.0 5Fr Health catheter MULTIPACK Cardinal 1 572682 5 3DRC 5Fr Health catheter DIAGNOSTIC Cardinal 1 [id number] 975451 466432 922765 15 AR1 MOD 5Fr Health catheter (111634A) MULTIPACK Cardinal 1 639792 5 Pigtail 5 Fr Health catheter SHEATH 6FR Terumo 1 WSU506 267685 385716 226025 40 [place] (ISP623) WHISPER Matute 1 [id number] 714898 180371 497909 5 300cm guide Vascular wire ([id number]) INFLATOR Merit 1 ED4589 605078 087015 471671 15 [facility] Medical BasixCompak (EE4229) GUIDE 6FR AR Medtronic 1 JM1YC10 430956 46839 343272 1 1.0 catheter (FA7HE47) INTEGRITY RX Medtronic 1 [id number] 061370 588657 473821 5 [id number] 3.5 x 09 stent ([id number]) EXOSEAL 6Fr Cardinal 1 EX600 953682 351359 882632 10 (EX600) Health Signature Audit [place] Stage Time Signature Unsigned Intra-Procedure 11/03/2019 Karen Alston 9:50:42 AM RT(R) Intra-Procedure 11/03/2019 Fanny Llanes 9:51:41 AM RN Intra-Procedure 11/03/2019 Sampson Zarco 9:51:56 AM Kai LLANOS [facility] [address] [place] [address]
[2019-11-02 12:30] LABS: BASOPHILS 0.1 % (0-2); EOSINOPHILS 1.5 % (0-7); HEMATOCRIT 41.1 % (36.0-48.0); HEMOGLOBIN 13.8 g/dL (12-16); IMMATURE GRANULOCYTES 0.3 % (0-5); LYMPHOCYTES 39.8 % (15-50); MCH 31.3 pg (26.0-34.0); MCHC 33.6 g/dL (31.0-37.0); MCV 93.2 fL (80.0-100.0); MEAN PLATELET VOLUME 8.7 fL (7.4-10.4); MONOCYTES 5.8 % (2-11); NEUTROPHILS 52.5 % (40-80); PLATELET COUNT 356 10x3/uL (130-400); RBC 4.41 10x6/uL (4.00-5.40); RDW 14.5 % (11.5-14.5); WBC 7.8 10x3/uL (4.8-10.8)
[2019-11-02 12:48] LABS: APTT 23.5 SECONDS (22.8-39.4); INR 0.86 (0.85-1.17); PROTIME 11.7 SECONDS (11.6-15.0)
[2019-11-02 13:10] LABS: CALC OSMOLALITY 280 mosm/kg (275-300); CALCIUM 9.6 mg/dL (8.5-10.1); CARBON DIOXIDE 24.7 mmol/L (21.0-32.0); CHLORIDE - SERUM 106 mmol/L (98-107); POTASSIUM - SERUM 4.1 mmol/L (3.5-5.1); SODIUM 140 mmol/L (136-145); UREA NITROGEN 10 mg/dL (7-18); eGFR NON AFRICAN AMERICAN 59 mL/min (90-120)
[2019-11-02 13:12] LABS: GLUCOSE 147 mg/dL (74-106)
[2019-11-02 13:13] VITALS: BP 121/67
--- NOTE | 2019-11-02 13:15 | NUR ---
REPORT CALLED TO ALONDRA AT THIS TIME.
[2019-11-02 13:20] LABS: TROPONIN-I < 0.017 ng/mL (0.000-0.060)
[2019-11-02 13:29] LABS: ALBUMIN 3.9 g/dL (3.4-5.0); ALKALINE PHOSPHATASE 53 U/L (30-120); ALT (SGPT) 26 U/L (10-68); BILIRUBIN - TOTAL 0.33 mg/dL (0.2-1.3); CKMB 0.9 U/L (0.0-3.6); CREATINE KINASE 49 UL (21-215); MAGNESIUM - SERUM 1.9 mg/dL (1.8-2.4)
--- NOTE | 2019-11-02 13:30 | NUR ---
RECEIVED PT TO ROOM 2115 VIA W/C FROM ER DX CHEST PAIN C/O CHEST PAIN 10/10 UPON ADMISSION RESP UNLABORED ON ROOM AIR SKIN W/D COLOR WNL TELEMETRY APPLIED SR RATE 85 WILL CONTINUE TO MONITOR
[2019-11-02 15:30] VITALS: BP 117/77
[2019-11-02 15:42] VITALS: BP 113/70; Ht 172.7 cm; Wt 90.0 kg
[2019-11-02 20:00] VITALS: BP 146/71
[2019-11-02 20:14] LABS: CALC OSMOLALITY 272 mosm/kg (275-300); CARBON DIOXIDE 23.8 mmol/L (21.0-32.0); CHLORIDE - SERUM 104 mmol/L (98-107); CHOL - HDL RATIO 4.8 ratio (2.3-4.1); CHOLESTEROL, TOTAL 280 mg/dL (0-200); CKMB 0.9 U/L (0.0-3.6); CREATINE KINASE 47 UL (21-215); CREATININE - SERUM 1.1 mg/dL (0.6-1.3); GLUCOSE 177 mg/dL (74-106); HDL CHOLESTEROL 59 mg/dL (32-96); LDL CHOLESTEROL 195 mg/dL (0-100); LDL-HDL RATIO 3.3 ratio (1.5-3.5); POTASSIUM - SERUM 4.3 mmol/L (3.5-5.1); SODIUM 135 mmol/L (136-145); TRIGLYCERIDE 133 mg/dL (30-200); TROPONIN-I < 0.017 ng/mL (0.000-0.060); UREA NITROGEN 9 mg/dL (7-18); eGFR NON AFRICAN AMERICAN 53 mL/min (90-120)
[2019-11-02 20:23] LABS: ALT (SGPT) 35 U/L (10-68)
[2019-11-03] VITALS: BP 124/68
[2019-11-03 01:54] LABS: BASOPHILS 0.1 % (0-2); EOSINOPHILS 0.3 % (0-7); HEMATOCRIT 39.5 % (36.0-48.0); IMMATURE GRANULOCYTES 0.1 % (0-5); LYMPHOCYTES 30.4 % (15-50); MCHC 32.9 g/dL (31.0-37.0); MEAN PLATELET VOLUME 8.3 fL (7.4-10.4); MONOCYTES 4.4 % (2-11); NEUTROPHILS 64.7 % (40-80); PLATELET COUNT 321 10x3/uL (130-400); RDW 14.5 % (11.5-14.5); WBC 6.8 10x3/uL (4.8-10.8)
[2019-11-03 02:26] LABS: ALBUMIN 3.5 g/dL (3.4-5.0); ALKALINE PHOSPHATASE 48 U/L (30-120); ALT (SGPT) 34 U/L (10-68); BILIRUBIN - TOTAL 0.31 mg/dL (0.2-1.3); CALC OSMOLALITY 279 mosm/kg (275-300); CALCIUM 9.2 mg/dL (8.5-10.1); CHLORIDE - SERUM 105 mmol/L (98-107); CREATINE KINASE 59 UL (21-215); CREATININE - SERUM 0.9 mg/dL (0.6-1.3); GLUCOSE 162 mg/dL (74-106); MAGNESIUM - SERUM 1.9 mg/dL (1.8-2.4); PHOSPHOROUS 2.8 mg/dL (2.5-4.9); POTASSIUM - SERUM 4.2 mmol/L (3.5-5.1); SODIUM 139 mmol/L (136-145); UREA NITROGEN 7 mg/dL (7-18); eGFR NON AFRICAN AMERICAN 67 mL/min (90-120)
[2019-11-03 02:27] LABS: TROPONIN-I < 0.017 ng/mL (0.000-0.060)
--- NOTE | 2019-11-03 02:55 | NUR ---
C/O NAUSEA AND VOMITTING AND PAIN. MEDICATED WITH ZOFRAN AND IV MORPHINE. CPOC.
[2019-11-03 04:00] VITALS: BP 146/73
--- NOTE | 2019-11-03 08:49 | NUR ---
PT TAKEN TO SEED ANALYSIS LABORATORY ASSISTANT VIA STRETCHER. NO COMPLAINTS OR CONCERNS AT THIS TIME. DAUGHTER AT BEDSIDE. TOOK MEDICATIONS WITHOUT COMPLICATIONS.
[2019-11-03 09:38] VITALS: BP 152/82
--- NOTE | 2019-11-03 14:16 | NUR ---
PT ESCORTED OUT VIA WHEELCHIAR TO POV, DAUGHTER DRIVING.
--- NOTE | 2019-11-04 13:47 | OP ---
PATIENT NAME: TATYANA RAYMOND MEDICAL RECORD: [id number] :55 LOCATION:D.M2 D.2116 ADMISSION DATE:11/02/19 SURGEON: MICHAEL WADDELL MD DATE OF OPERATION: 11/03/2019 PROCEDURE: Left heart catheterization, selective coronary angiography plus aortic root plus PDA stent to the saphenous vein graft to diagonal, right femoral artery approach. CATHETERS: A 5-Swazi sheath, 5/4 left and right Arlette, 5/4 pig. The procedure was well tolerated. The patient returned to the shrestha, sheath removed. ExoSeal device was placed. FINDINGS: Left ventriculography in 30-degree GARCIA view: Normal wall motion, normal EF. AORTIC ROOT INJECTION: This shows normal sized aortic root, trivial AI, and a saphenous vein graft to the right and a saphenous vein graft to the diagonal, only 2 grafts open. CORONARY ANATOMY: LEFT MAIN: Left main is free of disease. LAD: Free of disease. CIRCUMFLEX: Free of disease. RIGHT CORONARY ARTERY: Totally occluded. Right coronary artery is widely patent, previously placed stent is widely patent. SAPHENOUS VEIN GRAFT: Saphenous vein graft to a high diagonal, OM or ramus that has about 90% stenosis in the previously placed stent. PLAN: Intervention to the saphenous vein graft to the OM and diagonal. DESCRIPTION OF PROCEDURE: A 5-Swazi sheath was exchanged for a 6-Swazi sheath. AR1 guiding catheter provided good catheter support followed by 300 cm Whisper wire placed, tightly occluded 90% stenosed saphenous vein graft down this portion of vessel. Stent deployed was a 3.5 x 9 mm Integrity drug-eluting stent up to 14 atmospheres. Final angiography showed excellent resolution of 90% stenosis, no significant residual. LV function is normal, is being considered for surgery for colon carcinoma, will need 4 weeks of Plavix, otherwise no contraindication to surgery from my standpoint. TRANSINT:[id number] Voice Confirmation ID: [id number] DOCUMENT ID: [id number] MICHAEL WADDELL MD at 1347 CC: [id number] DICTATION DATE: 11/03/19 0951 CONVERTIBLE TOP INSTALLER: 11/03/19 1345 DIS IN 11/03/19 [place] [address] [place] [address]
--- NOTE | 2019-11-04 13:47 | CN ---
PATIENT NAME:TATYANA RAYMOND MEDICAL RECORD: [id number] : 55 LOCATION:D. D.2116 ADMIT DATE: 11/02/19 ACCOUNT: [id number] CONSULTING PHYSICIAN: MICHAEL WADDELL MD REFERRING PHYSICIAN: KELLY PIKE MD DATE OF CONSULTATION: 11/02/2019 HISTORY OF PRESENT ILLNESS: A 63-year-old female with a known history of coronary artery disease, status post coronary artery bypass grafting and subsequent multiple stents, presented with her typical angina that has been progressive over the past 2-3 weeks, typically maintained with a combination of beta blockade, Ranexa. She has been under more stress lately with a recent diagnosis of rectal carcinoma. Had rest symptomology today. She is being evaluated for colorectal surgery in the near future as well. We are asked to see her concerning her cardiovascular status. PAST MEDICAL HISTORY: Includes; 1. History of coronary artery disease. 2. Resultant ischemic cardiomyopathy. 3. Hypertension. 4. Hyperlipidemia. 5. Gastroesophageal reflux disease. MEDICATIONS: Include Flexeril 20 mg p.o. b.i.d., Combivent inhaler 1 puff q.6 p.r.n., Plavix 75 every day, Zetia 10 mg p.o. every day, fenofibrate 134 mg p.o. daily, losartan 100 mg p.o. daily, Bystolic 10 mg p.o. daily, Ranexa 1 gram b.i.d., Crestor 40 every day, Valium 5 mg p.o. b.i.d. p.r.n., Sinequan 100 mg at bedtime, Assawoman 10/325 p.o. q.4 p.r.n. ALLERGIES: IODINE. SOCIAL HISTORY: Nonsmoker and nondrinker. Easily takes care of all her ADLs, does try to walk on a regular basis. REVIEW OF SYSTEMS: The patient reports easy bruising but reports no swollen glands. The patient reports no fever, no night sweats, no significant weight gain, no significant weight loss. No significant exercise tolerance. The patient reports no dry eyes, no irritation, no vision change. Patient reports no difficulty hearing and no ear pain. Patient reports no frequent nose bleeds or nose and sinus problems. Patient reports on arm pain on exertion. No shortness of breath while lying down. No history of heart murmur. Patient reports no cough, no wheezing or coughing up blood. Patient reports no abdominal pain, no vomiting. Normal appetite. No diarrhea and not vomiting blood. No nausea and no constipation. Patient reports no incontinence. No difficulty urinating. No hematuria. No increased frequency. Patient reports no muscle aches. No weakness, no arthralgias, no back pain. No swelling of the extremities. Patient reports no abnormal mole, no jaundice, no rashes. Reports no loss of consciousness. No weakness and no numbness. No seizures, dizziness, or headaches. The patient reports no depression, no sleep disturbance, feeling safe in a relationship and no alcohol abuse. Patient reports on fatigue. Reports no runny nose or sinus pressure. No itching, no hives, and no frequent sneezing. PHYSICAL EXAMINATION: GENERAL: Pleasant female, in no acute distress, appears stated age. CONSULT REPORT [id number] MANDITATYANABRYN LOTT VITAL SIGNS: Blood pressure 121/67, pulse 94 and regular. HEENT: Normocephalic, atraumatic. NECK: No JVD or bruit. HEART: Regular. LUNGS: Prolonged respiratory phase, few expiratory wheezes. ABDOMEN: Soft, nontender. EXTREMITIES: Pulses 2+ with no edema. 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 IMPRESSION: Acute coronary syndrome despite maximal medical therapy. PLAN: For angiography, intervention based on the above. In the interim, we will plan to pretreat with the prednisone. TRANSINT:[id number] Voice Confirmation ID: [id number] DOCUMENT ID: [id number] MICHAEL WADDELL MD at 1347 CC: [id number] DICTATION DATE: 11/02/19 1426 MEDICAL FIELD REPRESENTATIVE: 11/02/19 1729 DIS IN 11/03/19 [id number] [place] [address]
== END 2019-11-03 14:17 | disposition home or self-care (01) ==
LOC: D.ER 12:07 → D.M2 12:53 → OBSVTIME 16:00 → D.M2 11-03 14:17
PROVIDERS: Family Medicine; ADMIT Emergency Medicine; ATTEND Emergency Medicine
DX: I24.9 Acute ischemic heart disease, unspecified (principal); I10 Essential (primary) hypertension; E78.5 Hyperlipidemia, unspecified; K21.9 Gastro-esophageal reflux disease without esophagitis; I25.10 Atherosclerotic heart disease of native coronary artery without angina pectoris

== ENCOUNTER 2019-11-04 06:34 | Emergency (ER) | payer MEDICARE ==
[~2019-11-04] VITALS: Ht 172.7 cm; Wt 90.9 kg
[2019-11-04 06:39] VITALS: Ht 172.7 cm; Wt 90.9 kg
[2019-11-04 07:29] LABS: APTT 24.1 SECONDS (22.8-39.4); INR 0.91 (0.85-1.17); PROTIME 12.2 SECONDS (11.6-15.0)
[2019-11-04 07:33] LABS: ANION GAP 14.2 mmol/L (8-16); CALCIUM 9.6 mg/dL (8.5-10.1); CARBON DIOXIDE 23.6 mmol/L (21.0-32.0); CREATININE - SERUM 0.9 mg/dL (0.6-1.3); POTASSIUM - SERUM 3.8 mmol/L (3.5-5.1)
[2019-11-04 07:48] LABS: BASOPHILS 0.1 % (0-2); EOSINOPHILS 0.3 % (0-7); HEMATOCRIT 41.1 % (36.0-48.0); HEMOGLOBIN 13.6 g/dL (12-16); IMMATURE GRANULOCYTES 0.2 % (0-5); LYMPHOCYTES 37.9 % (15-50); MCH 30.9 pg (26.0-34.0); MCHC 33.1 g/dL (31.0-37.0); MCV 93.4 fL (80.0-100.0); MEAN PLATELET VOLUME 8.3 fL (7.4-10.4); MONOCYTES 5.8 % (2-11); NEUTROPHILS 55.7 % (40-80); PLATELET COUNT 372 10x3/uL (130-400); RDW 14.3 % (11.5-14.5); WBC 10.9 10x3/uL (4.8-10.8)
--- NOTE | 2019-11-04 08:11 | NUR ---
0800- CALLED TO ER BY GRADY WADE TO PLACE A FEMSTOP ON PT DUE TO CONTINUED OOZING OF BLOOD TO FEMORAL SITE FROM [facility] PROCEDURE YESTERDAY. US TECH IN ROOM AT BEDSIDE FINISHING US, FEMSTOP PLACED TO RT FEMORAL ARTERY SITE AT 145MMHG. PT CONT TO HAVE RT PEDAL PULSE. PT STATES PAIN AT 10/10 AND NURSE NOTIFIED. HEMATOMA NOTED PRIOR TO FEMSTOP PLACEMENT WITH CONT OOZING.
[2019-11-04 13:09] VITALS: BP 148/81
== END 2019-11-04 13:09 | disposition home or self-care (01) ==
LOC: D.ER 06:34
PROVIDERS: Emergency Medicine
DX: T14.8XXA Other injury of unspecified body region, initial encounter (principal); Z98.890 Other specified postprocedural states

== ENCOUNTER 2020-06-02 16:30 | Outpatient (CLI) | payer MEDICARE ==
[2019-11-21 01:58] VITALS: BMI 30.3
[~2020-06-02 16:30] MED LIST changes: +DILAUDID2 MG PO
== END 2020-06-02 23:59 | disposition home or self-care (01) ==
LOC: D.MAMMO 16:30
PROVIDERS: ATTEND Family Medicine
DX: Z12.31 Encounter for screening mammogram for malignant neoplasm of breast (principal)